=== PATIENT | female | born 1995 | race Caucasian/White ===

== ENCOUNTER → 2025-02-17 | Outpatient (CLI) | payer OTHER, SELFPAY ==
--- NOTE | 2025-02-17 18:00 | US_ITS ---
PROCEDURE: PELVIC W/ TRANSVAGINAL REASON FOR EXAM: INFERTILITY TECHNIQUE: Procedure Code: [id number] Modality: US Procedure: PELVIC W/ TRANSVAGINAL COMPARISON: None FINDINGS: LMP: January 12, 2025 Measurements: Uterus: 7.6 cm x 5.3 cm x 3.4 cm with a volume of 71.3 mL Endometrial Thickness: 11 mm. It is hyperechoic. Right Ovary: 3.7 cm x 2.6 cm x 1.9 cm with a volume of 10 mL. Left Ovary: 4.7 cm x 4 cm x 2.7 cm with a volume of 39 mL. TRANSABDOMINAL: Uterus: Normal size, myometrial echotexture, and contour. Endometrium: Endometrium measures 1.1 cm. There is a hypoechoic nodular density within the endometrium measuring 3 mm x 5 mm x 2 mm. This may represent an endometrial polyp. Right ovary: Normal size and echotexture. Small ovarian follicles. These are seen in the periphery of the ovary suggestive of possible polycystic ovaries. Left ovary: There is a 2.8 cm 3.4 cm 1.8 cm complex cyst. Other: No large pelvic mass identified. Transvaginal sonography was performed to better visualize the endometrium. TRANSVAGINAL: Uterus: Retroverted. Endometrium: Questionable 3 mm x 5 mm x 2 mm endometrial polyp. Right ovary: Small follicles in the periphery of the right ovary. Left ovary: 2.8 cm 3.4 cm 1.8 cm complex cyst. Other adnexal findings: None. Cul-de-sac: Minimal free fluid in the pelvis within normal limits. Tenderness: No tenderness US/Pelvic w/ Transvaginal IMPRESSION: Questionable 3 mm x 5 mm x 2 mm endometrial polyp. 2.8 cm 3.4 cm 1.8 cm complex cyst in the left ovary. Reading Location: [place] [id number]
--- OUTSIDE RECORDS SUMMARY | 2025-02-17 18:01 | XMS RPT_ITS | CCD ---
Author Organization [facility] Care Team Providers Care Vascular Ultrasound Technician Name Role Phone Ortiz Sabillon Unavailable [phone] ML ACEVEDO Unavailable Unavailable ML ACEVEDO Unavailable Unavailable KATI REYES Unavailable Unavailable ORTIZ SABILLON Unavailable Unavailable ORTIZ SABILLON Unavailable Unavailable LUIS RAMOS Unavailable Unavailable Cohen MATERIALS BRANCH CHIEF, Genialissette Iverson Primary Care Prov ider Cohen MATERIALS BRANCH CHIEF, Genialissette Candelariae Primary Care Prov ider Joaquin Dick DO Unavailable [phone] Cohen MATERIALS BRANCH CHIEF, Genialissette Iverson Primary Care Prov ider Richard Barone DO Unavailable [phone] JORDYN LAINEZ Attending Unavailable GENIA COHENE Primary Care Unava ilable GENIA COHEN Referring Unava ilable GENIA COHEN Attending Unava ilable GENIA COHEN Primary Care Unava ilable Cohen MATERIALS BRANCH CHIEF, Genia Zayra Primary Care Prov ider GENIA COHEN Primary Care Unava ilable Cohen MATERIALS BRANCH CHIEF, Genia Zayra Primary Care Prov ider Cohen ROSARIO, Genia Zayra Unavailable NIRAJ KENNEDY Referring Unavailable Unavailable Primary Care Provider UnavailNiraj Cox Unavailable Karen Killian Unavailable GENIA COHEN Attending GENIA Espinosa Primary Care Temi Hernandez Attending Unavailable Temi Mendez Referring Unavailable [facility] Doctor, Out of Primary Care Unavailable Temi Mendez Attending Unavailable Allergies Allergy Classification Reported Allergen(s) Allergy Type Date of Onset Reaction(s) Facility (1 source) ALLERGIES NOT ON FILE; Translations: [ALLERGIES NOT ON FILE] Propensity to adverse reactions (disorder) [facility] Medications Current Medications Medication Drug Class(es) Dates Sig (Normalized) Sig (Original) azelaic acid 0.15 mg/mg topical gel (2 sources) Start: 08-06-2024 azelaic acid (FINACEA) 15 % gel Apply topically 2 (two) times a day . 08/06/2024 Active escitalopram 20 mg oral tablet (9 sources) Serotonin Reuptake Inhibitor Start: 01-19-2021 End: 07-30-2022 take 1 tablet by mouth once daily escitalopram oxalate (LEXAPRO) 20 MG tablet Indications: Anxiety Take 1 (one) tablet (20 mg total) by mouth daily . 90 tablet 3 08/04/2021 07/30/2022 Active Start: 09-29-2020 End: 01-19-2021 take 1 tablet by mouth once daily escitalopram oxalate (LEXAPRO) 10 MG tablet Indications: Anxiety Take 1 (one) tablet (10 mg total) by mouth daily . 30 tablet 1 09/29/2020 01/19/2021 Discontinued (Reorder) 21 day ethinyl estradiol 0.415473 mg/hr / etonogestrel 0.005 mg/hr vaginal system (6 sources) Progestin, Estrogen Start: 09-29-2020 End: 09-29-2021 etonogestreL-ethinyl estradioL (NUVARING) 0.12-0.015 mg/24 hr vaginal ring Indications: Encounter for counseling regarding contraception Insert vaginally and leave in place for 3 consecutive weeks, then remove for 1 week. . 1 each 12 09/29/2020 Active Norethindrone Acetate-Ethinyl Estradiol 1 Mg-5 McG Tablet (1 source) Progestin, Estrogen norethindron e-ethinyl estradiol (FEMHRT 1/5) 1-5 mg-mcg Tab Take by mouth daily. Active hydrOXYzine hydrochloride 10 mg oral tablet (18 sources) Antihistamine Start: 03-15-2023 End: 11-12-2024 hydrOXYzine (ATARAX) 10 MG tablet Indications: Anxiety Take 1 (one) tablet to 2 (two) tablets (10-20 mg total) by mouth 3 (three) times a day as needed for anxiety . 90 tablet 6 11/12/2024 Active Start: 01-19-2021 End: 01-19-2022 take 1 capsule by mouth every four hours as needed for anxiety hydrOXYzine (VISTARIL) 50 MG capsule Take 1 (one) capsule (50 mg total) by mouth every 4 (four) hours as needed for anxiety . 30 capsule 0 01/19/2021 01/19/2022 Active nitrofurantoin, macrocrystals 25 mg / nitrofurantoin, monohydrate 75 mg oral capsule (1 source) Nitrofuran Antibacterial Start: 02-24-2017 End: 03-03-2017 take 1 capsule by mouth twice daily nitrofurantoin, macrocrystal-monohydrate, (MACROBID) 100 MG capsule Indications: Urinary tract infection without hematuria, site unspecified Take 1 (one) capsule (100 mg total) by mouth 2 (two) times a day for 7 days. 14 capsule 0 02/24/2017 03/03/2017 Active ondansetron 4 mg oral tablet (2 sources) Serotonin-3 Receptor Antagonist Start: 01-25-2017 take 4 tablets by mouth every eight hours ondansetron (ZOFRAN, HYDROCHLORIDE,) 4 MG tablet Take 1 (one) tablet (4 mg total) by mouth every 8 (eight) hours as needed for nausea. 6 tablet 0 01/25/2017 Active phenazopyridine hydrochloride 200 mg oral tablet (1 source) Start: 02-24-2017 End: 02-26-2017 take 1 tablet by mouth three times daily phenazopyridine (PYRIDIUM) 200 MG tablet Indications: Urinary tract infection without hematuria, site unspecified Take 1 (one) tablet (200 mg total) by mouth 3 (three) times a day for 2 days. 6 tablet 0 02/24/2017 02/26/2017 Active sertraline 50 mg oral tablet (16 sources) Serotonin Reuptake Inhibitor Start: 10-14-2024 End: 11-07-2025 take 1 tablet by mouth once daily sertraline (ZOLOFT) 50 MG tablet Indications: Anxiety Take 1 (one) tablet (50 mg total) by mouth daily . 90 tablet 3 11/12/2024 11/07/2025 Active Start: 06-13-2023 End: 08-10-2024 take 1 tablet by mouth once daily sertraline (ZOLOFT) 50 MG tablet Indications: Anxiety Take 1 (one) tablet (50 mg total) by mouth daily . 30 tablet 11 08/16/2023 08/10/2024 Active Start: 03-15-2023 End: 05-14-2023 take 1 tablet by mouth once daily sertraline (ZOLOFT) 50 MG tablet Indications: Anxiety Take 1 (one) tablet (50 mg total) by mouth daily . 30 tablet 1 03/15/2023 05/14/2023 Active Start: 02-12-2023 End: 04-13-2023 take 1 tablet by mouth once daily sertraline (ZOLOFT) 25 MG tablet Indications: Anxiety Take 1 (one) tablet (25 mg total) by mouth daily . 30 tablet 1 02/12/2023 03/15/2023 Discontinued (Reorder (Suppress CancelRx Message to Pharmacy)) sulfamethoxazole 800 mg / trimethoprim 160 mg oral tablet (1 source) Dihydrofolate Reductase Inhibitor Antibacterial, Sulfonamide Antimicrobial Start: 01-25-2017 End: 01-30-2017 take 1 tablet by mouth twice daily sulfamethoxazole-trimethoprim (BACTRIM DS,SEPTRA DS) 800-160 mg per tablet Take 1 (one) tablet by mouth 2 (two) times a day for 5 days. 10 tablet 0 01/25/2017 01/30/2017 Active UNKNOWN (1 source) Completed/Discontinued Medications Medication Drug Class(es) Dates Sig (Normalized) Sig (Original) NEGATED: Highlighted row has not occurred! (5 sources) Start: 01-06-2024 End: 01-06-2024 Start: 01-02-2024 End: 01-02-2024 Start: 01-01-2024 End: 01-01-2024 Problems Active Problems Problem Classification Problem Date Documented Date Episodic/Chronic Anxiety disorders (20 sources) Anxiety; Translations: [Anxiety disorder, unspecified] Onset: 09-29-2020 Chronic Contraceptive and procreative management (5 sources) Patient encounter status; Translations: [Encounter for other general counseling and advice on contraception] Onset: 02-09-2025 Episodic E Codes: Fall (2 sources) Fall from snow-skis, initial encounter; Translations: [Fall from snow-skis, initial encounter] Onset: 04-26-2022 Episodic Genitourinary symptoms and ill-defined conditions (1 source) Dysuria; Translations: [Dysuria] Episodic Immunizations and screening for infectious disease (1 source) Immunization due; Translations: [Encounter for immunization] 02-12-2023 Episodic Malaise and fatigue (3 sources) Fatigue; Translations: [Other fatigue] Onset: 11-12-2024 11-12-2024 Episodic Menstrual disorders (20 sources) Irregular periods; Translations: [Irregular menstruation, unspecified] Onset: 09-29-2020 Chronic Nutritional deficiencies (3 sources) Vitamin D deficiency; Translations: [Vitamin D deficiency, unspecified] Onset: 11-12-2024 11-12-2024 Chronic Other nervous system disorders (1 source) Disturbance of attention; Translations: [Attention and concentration deficit] Chronic Other non-traumatic joint disorders (3 sources) Pain in right knee; Translations: [Pain in joint, lower leg] Onset: 04-26-2022 Episodic Other screening for suspected conditions (not mental disorders or infectious disease) (2 sources) Encounter for screening for diabetes mellitus; Translations: [Encounter for screening for diabetes mellitus] Onset: 11-12-2024 Episodic Sprains and strains (1 source) Strain of right patellar tendon; Translations: [Strain of other muscle(s) and tendon(s) at lower leg level, right leg, subsequent encounter] Episodic Past or Other Problems Problem Classification Problem Date Documented Da te Episodic/Chronic Abdominal pain (13 sources) Generalized abdominal pain; Translations: [Generalized abdominal pain] Onset: 01-01-2024 Episodic Mood disorders (6 sources) Mood disorders Onset: 09-29-2020 09-29-2020 Other nervous system disorders (17 sources) Numbness; Translations: [Anesthesia of skin] Onset: 02-21-2018 Resolved: 09-29-2020 09-29-2020 Episodic Urinary tract infections (5 sources) Urinary tract infectious disease; Translations: [Urinary tract infection, site not specified] Onset: 01-25-2017 Episodic Results Test Name Value Interpretation Reference Range Facility Junior Qa Analyst Office Visit Reporton 02-09-2025 Junior Qa Analyst Office Visit Report [facility] 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 Is patient in pain?: No Allergies No Known Allergies Allergy (Unverified 02/09/25 09:34) Medications ???Medication ???Instructions ???Recorded ???Confirmed ???Type sertraline 50 mg tablet (Zoloft) 50 mg PO QDAY 02/09/25 02/09/25 Hi story Is last menstrual period known: Yes Last Menstrual Period: 01/10/25 Post menopausal: No Patient : No : No Do you think of yourself as: straight/heterosexua l Current gender identity: female Control Method: none PFSH Medical History (Updated 02/09/25 @ 09:52 by SANTHOSH Chen) Anxiety Surgical History (Updated 02/09/25 @ 09:40 by Elizabeth Godinez) S/P ACL repair Family History (Updated 02/09/25 @ 09:41 by Elizabeth Godinez) Mother Abnormal uterine bleeding Sister Abnormal uterine bleeding Social History adopted: No household members: spouse housing: house number of children: 0 current occupational status: employed current occupation: [employer] current occupational exposures/hazards: No pets and animals: Yes pets and animals: dog(s) history of recent travel: No sexually active: Yes Smoking Status: Never smoker second hand exposure: No alcohol intake: current alcohol intake frequency: a few times a week Alcohol type: wine substance use type: does not use well-balanced diet: about half the time caffeine: Yes Type: coffee Number of servings: 3 eating out: 1-3 times/week during the past year weight has: increased > 10 lbs what type of physical activity do you participate in: walking frequency: daily cornelio/congregational: None seatbelt use: always do you feel safe at home: Yes additional social history: - Grant History 0 Elective abortions Hx Para Spontaneous abortions Hx # Term Pregnancies Ectopic pregnancies Hx # Pregnancies Multiple births # of living children HPI Encounter for routine gynecological examination Details: LAURA EAGLE is a 29 year old who presents for annual exam. She is here to establish care. She reports she has not been on OCP since in high school. She was previously on Depo during high school. She has been with partner for 10 years with unprotected sex and has never had (did use pull out method). Since August of this year they have been actively trying; tracking cycles. Her test strips are showing she is not ovulating. Last PAP: 09/2022 per patient; negative. History of abnormal PAP: none Last mammogram: none History of abnormal mammogram: none Colon cancer screening: none Other preventative health care screenings: PCP: Genia Cohen NP. Female Reproductive History Hx Age of Menarche: 12 Last Menstrual Period: 01/10/25 Cycle Length: 21-35 Bleeding Duration: 5 Questions: metrorrhagia: No, sexually active: Yes, dyspareunia: No and PCB: No ROS Const Constitutional: Denies chills, fatigue, fever(s), headache(s), weight gain or weight loss Eyes Eyes: Denies change in vision ENT ENT: Denies dizziness Cardio Card: Denies chest pain, chest pain at rest or palpitations Resp Resp: Denies cough or dyspnea GI GI: Denies abdominal pain, constipation, nausea or vomiting : Denies difficulty voiding, dysuria, hematuria, pelvic pain, prolapse symptoms, urinary frequency, urinary incontinence, urinary urgency, vaginal discharge, vaginal dryness, vaginal odor or vaginal pruritus Skin Skin/Breast: Denies alopecia, new lesions, rash, breast mass, breast pain or breast skin changes Neuro Neuro: Denies dizziness Psych Psych: Denies anxiety or depression Endo Endo: Denies cold intolerance, excessive sweating or heat intolerance Exam Const General: cooperative, healthy appearing, comfortable, no acute distress, well groomed and well hydrated Nutritional Appearance: well nourished Orientation: alert, awake and oriented x3 HENMT Head: normal to inspection and normocephalic Ears: hearing grossly normal bilaterally and external ears normal Nose: external nose normal Face and sinus: normal facial exam Eyes General: appearance normal, both eyes and all related structures Neck Neck: normal visual inspection, full ROM and no lymphadenopathy Thyroid: thyroid normal Chest Chest palpation inspection: normal inspection of the chest Breast inspection: normal inspection of the breasts and normal inspection (more content not included)... Normal [facility] B12/Folateon 11-13-2024 Cobalamin (Vitamin B12) [Mass/Vol] 433 pg/mL 200 - 1100 pg/mL [facility] Folate [Mass/Vol] 20.9 ng/mL [facility] Comment on above: Reference Range Low: <3.4 Borderline: 3.4-5.4 Normal: >5.4 BASIC METABOLIC PANEL WITH A NION GAPon 11-13-2024 BUN/CREATININE RATIO SEE NOTE: Normal 6-22 [facility] Comment on above: Result Comment: Not Reported: BUN and Creatinine are within reference range. Performed By: #### 1 4852, 97973, 18979, 09821, 496, 6399, 5616 #### [facility] [address], [address] [place] [address] Center Rep: Merlin Rao MD Calcium [Mass/Vol] 9.6 mg/dL Normal 8.6-10.2 [facility] Comment on above: Performed By: #### 1 4852, 08955, 44095, 22877, 496, 6399, 5616 #### [facility] [address], [address] [place] [address] Center Rep: Merlin Rao MD Chloride [Moles/Vol] 103 mmol/L Normal 98-110 [facility] Comment on above: Performed By: #### 1 4852, 09680, 70120, 48764, 496, 6399, 5616 #### [facility] [address], [address] [place] [address] Center Rep: Merlin Rao MD CO2 [Moles/Vol] 23 mmol/L Normal 20-32 [facility] Comment on above: Performed By: #### 1 4852, 30419, 40329, 91808, 496, 6399, 5616 #### [facility] [place] [address] Center Rep: Merlin Rao MD Creatinine [Mass/Vol] 0.66 mg/dL Normal 0.50-0.97 [facility] Comment on above: Performed By: #### 1 4852, 43296, 35307, 21964, 496, 6399, 5616 #### [facility] [place] [address] Center Rep: Merlin Rao MD ELECTROLYTE BALANCE 12 mmol/L (calc) Normal 7-17 [facility] Comment on above: Performed By: #### 1 4852, 33875, 65473, 15027, 496, 6399, 5616 #### [facility] [place] [address] Center Rep: Merlin Rao MD GFR/1.73 sq M.predicted among non-blacks MDRD (S/P/Bld) [Vol rate/Area] 121 mL/min/{1.73_m2} Normal > OR = 60 [facility] Comment on above: Performed By: #### 1 4852, 24257, 51710, 02351, 496, 6399, 5616 #### [facility] [place] [address] Center Rep: Merlin Rao MD Glucose [Mass/Vol] 91 mg/dL Normal 65-99 [facility] Comment on above: Result Comment: Fasting reference interval Performed By: #### 1 4852, 21948, 01949, 32262, 496, 6399, 5616 #### [facility] [place] [address] Center Rep: Merlin Rao MD Potassium [Moles/Vol] 4.3 mmol/L Normal 3.5-5.3 [facility] Comment on above: Performed By: #### 1 4852, 18376, 93852, 22549, 496, 6399, 5616 #### [facility] [address], [address] Center Rep: Merlin Rao MD Sodium [Moles/Vol] 138 mmol/L Normal 135-146 [facility] Comment on above: Performed By: #### 1 4852, 94566, 38298, 24419, 496, 6399, 5616 #### [facility] [address], [address] [place] [address] Center Rep: Merlin Rao MD Urea nitrogen [Mass/Vol] 14 mg/dL Normal 7-25 [facility] Comment on above: Performed By: #### 1 4852, 95284, 15090, 01097, 496, 6399, 5616 #### [facility] [address], [address] [place] [address] Center Rep: Merlin Rao MD Basic metabolic 2000 panelon 11-13-2024 Anion gap [Moles/Vol] 12 mmol/L [facility] Calcium [Mass/Vol] 9.6 mg/dL 8.6 - 10. 2 mg/dL [facility] Chloride [Moles/Vol] 103 mmol/L 98 - 110 mmol/L [facility] CO2 [Moles/Vol] 23 mmol/L 20 - 32 mmol/L [facility] Creatinine [Mass/Vol] 0.66 mg/dL 0.50 - 0.97 mg/dL [facility] GFR/1.73 sq M.predicted among non-blacks MDRD (S/P/Bld) [Vol rate/Area] 121 mL/min/{1.73_m2} > OR = 60 mL/min/1.73m2 [facility] Glucose [Mass/Vol] 91 mg/dL 65 - 99 mg/dL [facility] Comment on above: Fasting reference interval Potassium [Moles/Vol] 4.3 mmol/L 3.5 - 5.3 mmol/L [facility] Sodium [Moles/Vol] 138 mmol/L 135 - 146 mmol/L [facility] Urea nitrogen [Mass/Vol] 14 mg/dL 7 - 25 mg/dL [facility] Urea nitrogen/Creatinine [Mass ratio] SEE NOTE: [facility] Comment on above: Not Reported: BUN an d Creatinine are within reference range. CBC (INCLUDES DIFF/PLT)on Basophils (Bld) [#/Vol] 0.054 10*3/uL Normal 0-200 [facility] Comment on above: Performed By: #### 1 4852, 70307, 24842, 54817, 496, 6399, 5616 #### [facility] of [address], [address] [place] [address] Center Rep: Merlin Rao MD Basophils/100 WBC (Bld) 0.6 % Normal [facility] Comment on above: Performed By: #### 1 4852, 03185, 39406, 48340, 496, 6399, 5616 #### [facility] [place] [address] Center Rep: Merlin Rao MD Eosinophils (Bld) [#/Vol] 0.162 10*3/uL Normal 15-500 [facility] Comment on above: Performed By: #### 1 4852, 37764, 29294, 49350, 496, 6399, 5616 #### [facility] [place] [address] Center Rep: Merlin Rao MD Eosinophils/100 WBC (Bld) 1.8 % Normal [facility] Comment on above: Performed By: #### 1 4852, 98086, 08618, 31389, 496, 6399, 5616 #### [facility] [place] [address] Center Rep: Merlin Rao MD Erythrocyte distribution width (RBC) [Ratio] 13.1 % Normal 11.0-15.0 [facility] Comment on above: Performed By: #### 1 4852, 73962, 08237, 73863, 496, 6399, 5616 #### [facility] of [place] [address] Center Rep: Merlin Rao MD Hematocrit (Bld) [Volume fraction] 43.7 % Normal 35.0-45.0 [facility] Comment on above: Performed By: #### 1 4852, 23424, 40730, 91955, 496, 6399, 5616 #### [facility] [place] [address] Center Rep: Merlin Rao MD Hemoglobin (Bld) [Mass/Vol] 14.3 g/dL Normal 11.7-15.5 [facility] Comment on above: Performed By: #### 1 4852, 20535, 99100, 92126, 496, 6399, 5616 #### [facility] [place] [address] Center Rep: Merlin Rao MD Lymphocytes (Bld) [#/Vol] 2.907 10*3/uL Normal 850-3900 [facility] Comment on above: Performed By: #### 1 4852, 28359, 96689, 20975, 496, 6399, 5616 #### [facility] [place] [address] Center Rep: Merlin Rao MD Lymphocytes/100 WBC (Bld) 32.3 % Normal [facility] Comment on above: Performed By: #### 1 4852, 86833, 93025, 85111, 496, 6399, 5616 #### [facility] [place] [address] Center Rep: Merlin Roa MD MCH (RBC) [Entitic mass] 29.4 pg Normal 27.0-33.0 [facility] Comment on above: Performed By: #### 1 4852, 04684, 35240, 42649, 496, 6399, 5616 #### [facility] of [place] [address] Center Rep: Merlin Rao MD MCHC (RBC) [Mass/Vol] 32.7 g/dL Normal 32.0-36.0 [facility] Comment on above: Result Comment: For adults, a slight decrease in the calculated MCHC value (in the range of 30 to 32 g/dL) is most likely not clinically significant; however, it should be interpreted with caution in correlation with other red cell parameters and the patient's clinical condition. Performed By: #### 1 4852, 02115, 70107, 12197, 496, 6399, 5616 #### [facility] of [address], [address] [place] [address] Center Rep: Merlin Rao MD MCV (RBC) [Entitic vol] 89.9 fL Normal 80.0-100.0 [facility] Comment on above: Performed By: #### 1 4852, 31367, 92600, 09644, 496, 6399, 5616 #### [facility] of [place] [address] Center Rep: Merlin Rao MD Monocytes (Bld) [#/Vol] 0.774 10*3/uL Normal 200-950 [facility] Comment on above: Performed By: #### 1 4852, 27440, 31817, 56683, 496, 6399, 5616 #### [facility] of [place] [address] Center Rep: Merlin Rao MD Monocytes/100 WBC (Bld) 8.6 % Normal [facility] Comment on above: Performed By: #### 1 4852, 37661, 57353, 60525, 496, 6399, 5616 #### [facility] of [place] [address] Center Rep: Merlin Rao MD Neutrophils (Bld) [#/Vol] 5.103 10*3/uL Normal 5408-5254 [facility] Comment on above: Performed By: #### 1 4852, 84057, 89757, 78206, 496, 6399, 5616 #### [facility] of [address], [address] [place] [address] Center Rep: Merlin Rao MD Neutrophils/100 WBC (Bld) 56.7 % Normal [facility] Comment on above: Performed By: #### 1 4852, 75305, 75233, 37501, 496, 6399, 5616 #### [facility] [place] [address] Center Rep: Merlin Rao MD Platelet mean volume (Bld) [Entitic vol] 10.4 fL Normal 7.5-12.5 [facility] Comment on above: Performed By: #### 1 4852, 50791, 82601, 31479, 496, 6399, 5616 #### [facility] [place] [address] Center Rep: Merlin Rao MD Platelets (Bld) [#/Vol] 293 10*3/uL Normal 140-400 [facility] Comment on above: Performed By: #### 1 4852, 57078, 39062, 49417, 496, 6399, 5616 #### [facility] [place] [address] Center Rep: Merlin Rao MD RBC (Bld) [#/Vol] 4.86 10*6/uL Normal 3.80-5.10 [facility] Comment on above: Performed By: #### 1 4852, 76821, 94037, 88446, 496, 6399, 5616 #### [facility] [place] [address] Center Rep: Merlin Rao MD WBC (Bld) [#/Vol] 9.0 10*3/uL Normal 3.8-10.8 [facility] Comment on above: Performed By: #### 1 4852, 77336, 10625, 34781, 496, 6399, 5616 #### [facility] of [place] [address] Center Rep: Merlin Rao MD CBC and Differentialon 11-13 Basophils (Bld) [#/Vol] 54 10*3/uL [facility] Basophils/100 WBC (Bld) 0.6 % [facility] Eosinophils (Bld) [#/Vol] 162 10*3/uL [facility] Eosinophils/100 WBC (Bld) 1.8 % [facility] Erythrocyte distribution width (RBC) [Ratio] 13.1 % 11.0 - 15.0 % [facility] Hematocrit (Bld) [Volume fraction] 43.7 % 35.0 - 45.0 % [facility] Hemoglobin (Bld) [Mass/Vol] 14.3 g/dL 11.7 - 15.5 g/dL [facility] Lymphocytes (Bld) [#/Vol] 2907 10*3/uL [facility] Lymphocytes/100 WBC (Bld) 32.3 % [facility] MCH (RBC) [Entitic mass] 29.4 pg 27.0 - 33.[address] [facility] MCHC (RBC) [Mass/Vol] 32.7 g/dL 32.0 - 36.0 g/dL [facility] Comment on above: For adults, a slight decrease in the calculated MCHC value (in the range of 30 to 32 g/dL) is most likely not clinically significant; however, it should be interpreted with caution in correlation with other red cell parameters and the patient's clinical condition. MCV (RBC) [Entitic vol] 89.9 fL 80.0 - 100.[address] [facility] Monocytes (Bld) [#/Vol] 774 10*3/uL [facility] Monocytes/100 WBC (Bld) 8.6 % [facility] Neutrophils (Bld) [#/Vol] 5103 10*3/uL [facility] Neutrophils/100 WBC (Bld) 56.7 % [facility] Platelet mean volume (Bld) [Entitic vol] 10.4 fL 7.5 - 12.[address] [facility] Platelets (Bld) [#/Vol] 293 10*3/uL [facility] RBC (Bld) [#/Vol] 4.86 10*6/uL [facility] WBC (Bld) [#/Vol] 9 10*3/uL [facility] HEMOGLOBIN A1con 11-13-2024 HbA1c (Bld) [Mass fraction] 5.5 % Normal <5.7 [facility] Comment on above: Result Comment: For the purpose of screening for the presence of diabetes: <5.7% Consistent with the absence of diabetes 5.7-6.4% Consistent with increased risk for diabetes (prediabetes) > or =6.5% Consistent with diabetes This assay result is consistent with a decreased risk of diabetes. Currently, no consensus exists regarding use of hemoglobin A1c for diagnosis of diabetes in children. According to [place] Diabetes Association (ADA) guidelines, hemoglobin A1c <7.0% represents optimal control in non- diabetic patients. Different metrics may apply to specific patient populations. Standards of Medical Care in Diabetes(ADA). Performed By: #### 1 4852, 51508, 91070, 08137, 496, 6399, 5616 #### [facility] [address], [address] [place] [address] Center Rep: Merlin Rao MD HbA1c (Bld) [Mass fraction]o n 11-13-2024 FASTING:YES AN UPDATE OR CORRECTION HAS BEEN MADE TO NAME FASTING: YES [facility] Hemoglobin A1con 11-13-2024 HbA1c (Bld) [Mass fraction] 5.5 % [facility] - 5.7 % [facility] Comment on above: For the purpose of s creening for the presence of diabetes: <5.7% Consistent with the absence of diabetes 5.7-6.4% Consistent with increased risk for diabetes (prediabetes) > or =6.5% Consistent with diabetes This assay result is consistent with a decreased risk of diabetes. Currently, no consensus exists regarding use of hemoglobin A1c for diagnosis of diabetes in children. According to [place] Diabetes Association (ADA) guidelines, hemoglobin A1c <7.0% represents optimal control in non- diabetic patients. Different metrics may apply to specific patient populations. Standards of Medical Care in Diabetes(ADA). IRON, TIBC AND FERRITIN PANE Jorden 11-13-2024 % SATURATION 28 % (calc) Normal 16-45 [facility] Comment on above: Order Comment: FASTI NG:YES AN UPDATE OR CORRECTION HAS BEEN MADE TO NAME FASTING: YES Performed By: #### 1 4852, 15011, 69919, 67337, 496, 6399, 5616 #### [facility] [address], [address] [place] [address] Center Rep: Merlin Rao MD Ferritin [Mass/Vol] 81 ng/mL Normal 16-154 [facility] Comment on above: Order Comment: FASTI NG:YES AN UPDATE OR CORRECTION HAS BEEN MADE TO NAME FASTING: YES Performed By: #### 1 4852, 97561, 02882, 39829, 496, 6399, 5616 #### [facility] [address], [address] [place] [address] Center Rep: Merlin Rao MD IRON BINDING CAPACITY 326 mcg/dL (calc) Normal 250-450 [facility] Comment on above: Order Comment: FASTI NG:YES AN UPDATE OR CORRECTION HAS BEEN MADE TO NAME FASTING: YES Performed By: #### 1 4852, 49009, 67488, 43868, 496, 6399, 5616 #### [facility] [address], [address] [place] [address] Center Rep: Merlin Rao MD IRON, TOTAL 90 mcg/dL Normal 40-190 [facility] Comment on above: Order Comment: FASTI NG:YES AN UPDATE OR CORRECTION HAS BEEN MADE TO NAME FASTING: YES Performed By: #### 1 4852, 27715, 09900, 17279, 496, 6399, 5616 #### [facility] [address], [address] [place] [address] Center Rep: Merlin Rao MD Iron Study with Ferritinon 0 11-13-2024 Ferritin [Mass/Vol] 81 ng/mL 16 - 154 ng/mL [facility] Iron [Mass/Vol] 90 ug/dL [facility] h Iron binding capacity [Mass/Vol] 326 [facility] Iron saturation [Mass fraction] 28 [facility] LIPID PANEL WITH REFLEX TO D IRECT LDLon 11-13-2024 Cholesterol [Mass/Vol] 161 mg/dL Normal <200 [facility] Comment on above: Performed By: #### 1 4852, 14446, 31684, 13188, 496, 6399, 5616 #### [facility] [address], [address] [place] [address] Center Rep: Merlin Rao MD Cholesterol in HDL [Mass/Vol] 50 mg/dL Normal > OR = 50 [facility] Comment on above: Performed By: #### 1 4852, 15930, 36523, 12192, 496, 6399, 5616 #### [facility] [place] [address] Center Rep: Merlin Rao MD Cholesterol in LDL [Mass/Vol] 87 mg/dL Normal [facility] Comment on above: Result Comment: Refe rence range: <100 Desirable range <100 mg/dL for primary prevention; <70 mg/dL for patients with CHD or diabetic patients with > or = 2 CHD risk factors. LDL-C is now calculated using the Kami calculation, which is a validated novel method providing better accuracy than the Friedewald equation in the estimation of LDL-C. Earl MONIQUE et al. RYAN. 2013;310(19): 1293-0255 (http://education.[employer]/faq/EXZ726) Performed By: #### 1 4852, 38646, 21558, 08761, 496, 6399, 5616 #### [facility] [place] [address] Center Rep: Merlin Rao MD Cholesterol.total/C holesterol in HDL [Mass ratio] 3.2 {ratio} Normal <5.0 [facility] Comment on above: Performed By: #### 1 4852, 31208, 23553, 70437, 496, 6399, 5616 #### [facility] [place] [address] Center Rep: Merlin Rao MD NON HDL CHOLESTEROL 111 mg/dL (calc) Normal <130 [facility] Comment on above: Result Comment: For patients with diabetes plus 1 major ASCVD risk factor, treating to a non-HDL-C goal of <100 mg/dL (LDL-C of <70 mg/dL) is considered a therapeutic option. Performed By: #### 1 4852, 01401, 72724, 48456, 496, 6399, 5616 #### [facility] [place] [address] Center Rep: Merlin Rao MD Triglyceride [Mass/Vol] 137 mg/dL Normal <150 [facility] Comment on above: Performed By: #### 1 4852, 67649, 90204, 17141, 496, 0128, 0179 #### [facility] [address], [address] [place] [address] Center Rep: Merlin Rao MD Lipid 1996 panelon 5 Cholesterol [Mass/Vol] 161 mg/dL [facility] - 200 mg/dL [facility] Cholesterol in HDL [Mass/Vol] 50 mg/dL > OR = 50 [facility] Cholesterol in LDL [Mass/Vol] 87 mg/dL mg/dL (calc) [facility] Comment on above: Reference range: <10 0 Desirable range <100 mg/dL for primary prevention; <70 mg/dL for patients with CHD or diabetic patients with > or = 2 CHD risk factors. LDL-C is now calculated using the Kami calculation, which is a validated novel method providing better accuracy than the Friedewald equation in the estimation of LDL-C. Earl MONIQUE et al. RYAN. 2013;310(19): 7159-2373 (http://education.[employer]/faq/XID382) Cholesterol non HDL [Mass/Vol] 111 mg/dL [facility] Comment on above: For patients with di abetes plus 1 major ASCVD risk factor, treating to a non-HDL-C goal of <100 mg/dL (LDL-C of <70 mg/dL) is considered a therapeutic option. Cholesterol.total/C holesterol in HDL [Mass ratio] 3.2 {ratio} [facility] Triglyceride [Mass/Vol] 137 mg/dL [facility] - 150 mg/dL [facility] No Panel Informationon 11-13 FASTING:YES AN UPDATE OR CORRECTION HAS BEEN MADE TO NAME FASTING: YES [facility] FASTING:YES AN UPDATE OR CORRECTION HAS BEEN MADE TO NAME FASTING: YES [facility] TSH DL <= 0.005 mIU/L Qnon 0 11-13-2024 TSH Qn 1.08 m[IU]/L mIU/L [facility] Comment on above: Reference Range > or = 20 Years 0.40-4.50 Ranges First trimester 0.26-2.66 Second trimester 0.55-2.73 Third trimester 0.43-2.91 TSH W/REFLEX TO FT4on 2024 TSH W/REFLEX TO FT4 1.08 mIU/L Normal [facility] Comment on above: Result Comment: Refe rence Range > or = 20 Years 0.40-4.50 Ranges First trimester 0.26-2.66 Second trimester 0.55-2.73 Third trimester 0.43-2.91 Performed By: #### 1 4852, 60135, 41829, 79867, 496, 6399, 5616 #### [facility] [address], [address] [place] [address] Center Rep: Merlin Rao MD VITAMIN B12/FOLATE, SERUM [facility] 11-13-2024 Cobalamin (Vitamin B12) [Mass/Vol] 433 pg/mL Normal 200-1100 [facility] Comment on above: Performed By: #### 1 4852, 86587, 27230, 45856, 496, 6399, 5616 #### [facility] [address], [address] [place] [address] Center Rep: Merlin Rao MD Folate [Mass/Vol] 20.9 ng/mL Normal [facility] Comment on above: Result Comment: Refe rence Range Low: <3.4 Borderline: 3.4-5.4 Normal: >5.4 Performed By: #### 1 4852, 04942, 69833, 48771, 496, 6399, 5616 #### [facility] [address], [address] [place] [address] Center Rep: Merlin Rao MD VITAMIN D,25-OH,TOTAL,IAon 0 11-13-2024 VITAMIN D,25-OH,TOTAL,IA 34 ng/mL Normal 30-100 [facility] Comment on above: Result Comment: Sandra min D Status 25-OH Vitamin D: Deficiency: <20 ng/mL Insufficiency: 20 - 29 ng/mL Optimal: > or = 30 ng/mL For 25-OH Vitamin D testing on patients on D2-supplementation and patients for whom quantitation of D2 and D3 fractions is required, the QuestAssureD(TM) 25-OH VIT D, (D2,D3), LC/MS/MS is recommended: order code 42118 (patients >2yrs). See Note 1 Note 1 For additional information, please refer to http://[employer]ze.HouseL[employer]/faq/GSM484 (This link is being provided for informational/ educational purposes only.) Performed By: #### 1 4852, 18749, 72965, 28842, 496, 6399, 5616 #### [facility] [address] [facility], [address] [place] [address] Center Rep: Merlin Rao MD Vitamin D, Total, 25-OHon 25-hydroxyvitamin D [Mass/Vol] 34 ng/mL 30 - 100 ng/mL [facility] Comment on above: Vitamin D Status 25- [place] Vitamin D: Deficiency: <20 ng/mL Insufficiency: 20 - 29 ng/mL Optimal: > or = 30 ng/mL For 25-OH Vitamin D testing on patients on D2-supplementation and patients for whom quantitation of D2 and D3 fractions is required, the QuestAssureD() 25-OH VIT D, (D2,D3), LC/MS/MS is recommended: order code 18207 (patients >2yrs). See Note 1 Note 1 For additional information, please refer to http://In[employer]ze.HouseL[employer]/faq/AJE412 (This link is being provided for informational/ educational purposes only.) Urgent Care Xrayon Nonobstructive bowel gas pattern. Signed by: Flores Perez 01/01/2024 5:45 PM Dictation workstation: [id number] [facility] Interpreted By: Flores Perez, STUDY: XR URGENT CARE XRAY; ; 01/01/2024 5:11 pm INDICATION: Signs/Symptoms:abdom en pain. COMPARISON: None. ACCESSION NUMBER(S): [id number] ORDERING CLINICIAN: NIRAJ KENNEDY FINDINGS: Nonobstructive bowel gas pattern. No radiographically evident renal calculi. [facility] Flores Perez MD - 01/01/2024 Interpreted By: Flores Perez, STUDY: XR URGENT CARE XRAY; ; 01/01/2024 5:11 pm INDICATION: Signs/Symptoms:abdom en pain. COMPARISON: None. ACCESSION NUMBER(S): [id number] ORDERING CLINICIAN: NIRAJ KENNEDY FINDINGS: Nonobstructive bowel gas pattern. No radiographically evident renal calculi. IMPRESSION: Nonobstructive bowel gas pattern. Signed by: Flores Perez 01/01/2024 5:45 PM Dictation workstation: [id number] Work Phone: Radiology Study observation (narrative) [facility] [place] [facility] Work Phone: Urgent Care XrayOrdered By: Flores Perez on 01-01-2024 [facility] [place] [facility] Work Phone: XR URGENT CARE XRAYon 2023 XR URGENT CARE XRAY Interpreted By: Flores Perez, STUDY: XR URGENT CARE XRAY; ; 01/01/2024 5:11 pm INDICATION: Signs/Symptoms:abdom en pain. COMPARISON: None. ACCESSION NUMBER(S): [id number] ORDERING CLINICIAN: NIRAJ KENNEDY FINDINGS: Nonobstructive bowel gas pattern. No radiographically evident renal calculi. IMPRESSION: Nonobstructive bowel gas pattern. Signed by: Flores Perez 01/01/2024 5:45 PM Dictation workstation: [id number] [facility] XR HIP RIGHT 2-3 VIEWS (ROUT INE)on 04-27-2022 XR HIP RIGHT 2-3 VIEWS (ROUTINE) EXAMINATION: TWO XRAY VIEWS OF THE RIGHT HIP 04/26/2022 7:38 pm COMPARISON: None. HISTORY: ORDERING SYSTEM PROVIDED HISTORY: mild pain, sking accident; TECHNOLOGIST PROVIDED HISTORY: Injury/Trauma Acuity: Acute Reason for Exam: Leg Pain Cancer History: n Surgery, Radiation History: n Type of Encounter: Initial Mechanism of Injury: Leg Pain FINDINGS: There is no acute fracture or dislocation. Mineralization is preserved. The soft tissues are unremarkable. IMPRESSION: Findings as above. Workstation ID: [id number] Dictated by: VALERIE MURPHY on SunApr 26, 2022 10:46:27 PM EST Transcribed by: VALERIE MURPHY on SunApr 26, 2022 10:46:27 PM EST Finalized by: VALERIE MURPHY on SunApr 26, 2022 10:46:27 PM EST [facility] Comment on above: Order Comment: Injur y/Trauma or Illness?:Injury/Trauma How long have you had these symptoms (acute/chronic)?:Acute Reason for exam?:Leg Pain History of cancer?:n Surgeries, chemotherapy, or radiation?:n Type of Exam?:Initial Mechanism of injury?:Leg Pain XR KNEE RIGHT 2 VIEWS (STAND JEWEL)on 04-27-2022 XR KNEE RIGHT 2 VIEWS (STANDARD) EXAMINATION: TWO XRAY VIEWS OF THE RIGHT KNEE 04/26/2022 7:27 pm COMPARISON: None. HISTORY: ORDERING SYSTEM PROVIDED HISTORY: pain, skiing accident; TECHNOLOGIST PROVIDED HISTORY: Injury/Trauma Acuity: Acute Reason for Exam: Leg Pain Cancer History: n Surgery, Radiation History: n Type of Encounter: Initial Mechanism of Injury: Leg Pain FINDINGS: Suprapatellar effusion is present. No definite acute displaced fracture. Mineralization is appropriate. IMPRESSION: Findings as above. Workstation ID: [id number] Dictated by: VALERIE MURPHY on SunApr 26, 2022 10:45:31 PM EST Transcribed by: VALERIE MURPHY on SunApr 26, 2022 10:45:31 PM EST Finalized by: VALERIE MURPHY on SunApr 26, 2022 10:45:31 PM EST [facility] Comment on above: Order Comment: Injur y/Trauma or Illness?:Injury/Trauma How long have you had these symptoms (acute/chronic)?:Acute Reason for exam?:Leg Pain History of cancer?:n Surgeries, chemotherapy, or radiation?:n Type of Exam?:Initial Mechanism of injury?:Leg Pain MR KNEE RIGHT WITHOUT CONTRA STon 08-15-2021 MR KNEE RIGHT WITHOUT CONTRAST EXAMINATION: MRI OF THE RIGHT KNEE WITHOUT CONTRAST 08/15/2021 TECHNIQUE: Multiplanar multisequence MRI of the right knee was performed without the administration of intravenous contrast. COMPARISON: None. HISTORY: ORDERING SYSTEM PROVIDED HISTORY: patient with right knee pain - injury 3 months ago with something that snapped and consistently worsening pain since; TECHNOLOGIST PROVIDED HISTORY: Injury/Trauma Acuity: Chronic Reason for Exam: Had a fall 3 months ago while skiing, knee aches/throbs after walking, hard to walk once sore, hip/ankle are also starting to hurt. Type of Encounter: Initial Mechanism of Injury: ORDERING SYSTEM PROVIDED DIAGNOSIS CODES: M25.561 Acute pain of right knee FINDINGS: MENISCI: Intact medial and lateral menisci. CRUCIATE LIGAMENTS: Intact anterior cruciate and posterior cruciate ligaments. EXTENSOR MECHANISM: Intact quadriceps and patellar tendons. Intact patellar retinacula. LATERAL COLLATERAL LIGAMENT COMPLEX: Intact IT band, lateral collateral ligament proper, biceps femoris tendon and popliteus tendon. MEDIAL COLLATERAL LIGAMENT COMPLEX: The superficial and deep components of the medial collateral ligament are intact. KNEE JOINT: Articular cartilage is maintained. No chondral lesion. No joint effusion. No intra-articular body or popliteal cyst. There is focal edema in the infrapatellar fat pad at the inferior lateral margin of the patella. No evidence of edema along the plica in the infrapatellar fat pad. BONE MARROW: No evidence of fracture. Normal marrow signal. IMPRESSION: 1. No meniscus or ligament tear 2. Findings of patellar tendon-lateral femoral condyle friction syndrome. Workstation ID: [id number] Dictated by: JOSE ALFREDO DANIEL on SunAug 16, 2021 8:18:42 AM EDT Transcribed by: JOSE ALFREDO DANIEL on SunAug 16, 2021 8:18:42 AM EDT Finalized by: JOSE ALFREDO DANIEL on SunAug 16, 2021 8:18:42 AM EDT [facility] Comment on above: Order Comment: Injur y/Trauma or Illness?:Injury/Trauma How long have you had these symptoms (acute/chronic)?:Chronic Reason for exam?:Had a fall 3 months ago while skiing, knee aches/throbs after walking, hard to walk once sore, hip/ankle are also starting to hurt. Type of Exam?:Initial Mechanism of injury?: HCG ( test) Ql (U)O rdered By: Genia Cohen on 09-29-2020 Internal Control Pass [facility] Interpretation and review of laboratory results Normal [facility] POC , UrineOrdered By: Genia Cohen on 09-29-2020 HCG ( test) Ql (U) Negative Negative [facility] Urinalysis macro (dipstick) panel (U)Ordered By: Genia Cohen on 09-29-2020 Bilirubin Ql (U) Negative Negative [facility] Glucose Ql (U) Negative Normal, Negative mg/dL [facility] Hemoglobin Ql (U) Negative Negative [facility] Interpretation and review of laboratory results Abnormal [facility] Ketones Ql (U) Negative Negative mg/dL [facility] Leukocyte esterase Test strip Ql (U) Negative Negative [facility] Nitrite Ql (U) Negative Negative [facility] pH (U) 7.5 [pH] Abnormal [facility] Protein Ql (U) Negative Negative mg/dL [facility] Specific gravity (U) [Rel density] 1.025 [facility] Urobilinogen Qn (U) 0.2 mg/dL <2.0, 0. 2, Normal, Negative, 1.0, 2.0, <1.0 [facility] HM PAP SMEAROrdered By: [facility] on 05-30-2019 Cytology report Cyto stain.thin prep Doc (Cvx/Vag) Negative [facility] HPV 16+18+31+33+35+39+4 5+51+52+56+58+59+68 DNA Probe+sig amp Ql (Cvx) [facility] Interpretation and review of laboratory results Normal [facility] CYTOLOGYon 07-10-2017 CYTOLOGY RUN DATE: 07/16/17 [facility] LABORATORY LIVE SYSTEM PAGE 1 RUN TIME: 933 Specimen Inquiry RUN USER: INTERFACE PATIENT: LAURA WILEY LOC: [facility] U #: [id number] AGE/SX: 21/F ROOM: RE07/10/17REG DR: ML ACEVEDO DO : 94 BED: DIS: STATUS: REG CLI TLOC: SPEC #: [id number] RECD: 07/11/17 STATUS: JIMMIE REMaría #: [id number] GRACIELA: 07/10/17- SUBM DR: ML ACEVEDO DO ENTERED: 07/11/17 SP TYPE: CYTOLOGY OTHR DR: ORTIZ SABILLON MD ORDERED: [id number], N/C, 14289 SPECIMEN ADEQUACY SATISFACTORY FOR EVALUATION. ENDOCERVICAL/TRANSFO RMATION ZONE COMPONENT PRESENT. CYTOLOGY INFORMATION LAST MENSTRUAL PERIOD: 06/12/17 : POST : HORMONE THERAPY: YES CLINICAL HISTORY: CIN1, MILD CERVICAL DYSPLASIA INTERPRETATION/RESUL T ATYPICAL SQUAMOUS CELLS OF UNDETERMINED SIGNIFICANCE. GENERAL CATEGORIZATION CERVICAL CYTOLOGY: EPITHELIAL CELL ABNORMALITY: SEE INTERPRETATION. PLEASE NOTE: PAP SMEAR TESTING IS SUBJECT TO BOTH FALSE NEGATIVE AND FALSE POSITIVE RESULTS EVIDENCED BY PUBLISHED DATA. YOUR PATIENT'S TEST RESULTS SHOULD BE INTERPRETED IN THIS CONTEXT, TOGETHER WITH THE HISTORY AND CLINICAL FINDINGS. HPV HIGH RISK LABORATORY Date Time Test Result Flag Normal Range 07/10/17 UNK HPV HR DX NEGATIVE The Aptima HPV Assay is a qualitative amplification test for E6/E7 viral mRNA from 14 high-risk types of HPV. The high-risk HPV types detected by this assay include: 16, 18, 31, 33, 35, 39, 45, 51, 52, 56, 58, 59, 66, and 68. Positive results indicate the presence of HPV E6/E7 mRNA of any one or more of the high-risk types. Negative results are not intended to prevent women from proceeding to colposcopy, if indicated. CONTINUED ON NEXT PAGE RUN DATE: 07/16/17 [facility] LABORATORY LIVE SYSTEM PAGE 2 RUN TIME: 933 Specimen Inquiry RUN USER: INTERFACE SPEC #: [id number] PATIENT: LAURA WILEY #[id number] (Continued)--------- --- RECOMMENDATION HPV DNA TESTING IS THE PREFERRED FOLLOW-UP FOR WOMEN AGE 25 OR GREATER WITH ATYPICAL SQUAMOUS CELLS OF UNDETERMINED SIGNIFICANCE, ACCORDING TO THE UPDATED CONSENSUS GUIDELINES ON THE MANAGEMENT OF WOMEN WITH ABNORMAL CERVICAL CANCER SCREENING TESTS AND CANCER PRECURSORS (PUBLISHED BY THE ASCCP 2013). SCREENED BY: ALIZA Walker([facility]) Signed Electronically Signed MIKE KAUR MD 07/16/17 0933 END OF REPORT Normal [facility] SURGICAL PATHOLOGYon 018 SURGICAL PATHOLOGY RUN DATE: 07/16/17 [facility] LABORATORY LIVE SYSTEM PAGE 1 RUN TIME: 1312 Specimen Inquiry RUN USER: INTERFACE PATIENT: LAURA WILEY [facility]: [facility] U #: [id number] AGE/SX: 21/F ROOM: RE07/10/17REG DR: ML ACEVEDO DO : 94 BED: DIS: STATUS: REG CLI TLOC: SPEC #: [id number] RECD: 07/11/17-799 STATUS: JIMMIE PACKER #: [id number] GRACIELA: 07/10/17- [facility] DR: ML ACEVEDO DO ENTERED: 07/11/17-0801 SP TYPE: SURGICAL OTHR DR: KEO MARIE,ORTIZ Javier ORDERED: [id number], 71180, N/C GROSS DESCRIPTION Labeled 12 o'clock, is a 0.4 x 0.3 x 0.1 cm aggregate of fragments of narayanan tissue. All in 1a. MICROSCOPIC DIAGNOSIS Uterine cervix, 12 o'clock, biopsies: - MILD SQUAMOUS ATYPIA. SEE COMMENT. COMMENT: The findings are not diagnostic of intraepithelial lesion. The concurrent cytology ([id number]) correlates in that neither specimen contains diagnostic dysplasia. P16 immunostain is negative and HPV DNA test on cytology is also negative. Low risk HPV types can not be ruled out. Deeper levels of sections were examined. Adequacy: adequate Colposcopic impression: HPV OPERATION COLPOSCOPY WITH BIOPSY. POST OPERATIVE DIAGNOSIS Same. PREOPERATIVE DIAGNOSIS PRIYA 1, mild cervical dysplasia. -- Signed Electronically Signed MIKE KAUR MD 07/16/17 1312 END OF REPORT Normal [facility] POC Urinalysis Dipstick,Auto UCon 02-24-2017 Bilirubin Ql (U) Small Abnormal Negative [facility] Work Phone: Clarity, UA Clear Invalid Interpretation Code Clear [facility] Work Phone: Interpretation and review of laboratory results Abnormal Invalid Interpretation Code [facility] Work Phone: POC Color, Urine Yellow Invalid Interpretation Code Yellow, Light Yellow, Dark Yellow [facility] Work Phone: Urine, glucose presence Negative Invalid Interpretation Code Normal, Negative mg/dL [facility] Work Phone: Urine, hemoglobin presence Small Abnormal Negative [facility] Work Phone: Urine, ketones presence Negative Invalid Interpretation Code Negative mg/dL [facility] Work Phone: Urine, leukocyte esterase presence Trace Abnormal Negative [facility] Work Phone: Urine, nitrite presence Negative Invalid Interpretation Code Negative [email or web address] Work Phone: Urine, pH 5.5 [pH] Invalid Interpretation Code 5.0 - 7.0 [facility] Work Phone: Urine, protein presence 100 Abnormal Negative mg/dL [facility] Work Phone: Urine, specific gravity 1.030 1 Abnormal 1.005 - 1.025 [facility] Work Phone: Urine, urobilinogen 0.2 mg/dL Invalid Interpretation Code <2.0, 0.2, Normal, Negative, 1.0, 2.0, <1.0 [facility] Work Phone: CHLAMYDIA GONORRHOEAE rRNAon 02-12-2017 CHLAMYDIA RNA Negative Normal NEGATIVE [facility] Comment on above: Result Comment: This test was performed using the FDA approved Aptima Qkiwh4Yplaz (Gen-Probe(R)) for unisex swabs, vaginal swabs, andmale urine specimens. The use of female urine specimens fortesting was validated at [facility]. Performed By: #### C TGCRNA ####[facility] [id number] [place] [address] GONORRHOEAE RNA Negative Normal NEGATIVE [facility] Comment on above: Result Comment: This test was performed using the FDA approved Aptima [id number] (Gen-Probe(R)) for unisex swabs, vaginal swabs, andmale urine specimens. The use of female urine specimens fortesting was validated at [facility]. Performed By: #### C TGCRNA ####[facility] [id number] [place] [address] CYTOLOGYon 02-09-2017 CYTOLOGY RUN DATE: 02/14/17 [facility] LABORATORY LIVE SYSTEM PAGE 1 RUN TIME: 1763 Specimen Inquiry RUN USER: INTERFACE PATIENT: LAURA WILEY LOC: [facility] U #: [id number] AGE/SX: 21/F ROOM: RE02/09/17REG DR: ML ACEVEDO DO : 89 BED: DIS: STATUS: REG CLI TLOC: SPEC #: [id number] RECD: 02/12/17 STATUS: JIMMIE REQ #: [id number] GRACIELA: 02/09/17- SUBM DR: ML ACEVEDO DO ENTERED: 02/12/17 SP TYPE: CYTOLOGY OTHR DR: KEO MARIE,ORTIZ Javier ORDERED: [id number], N/C, [id number] SPECIMEN ADEQUACY SATISFACTORY FOR EVALUATION. ENDOCERVICAL/TRANSFO RMATION ZONE COMPONENT PRESENT. CYTOLOGY INFORMATION LAST MENSTRUAL PERIOD: 01/09/17 : INTERPRETATION/RESUL T LOW-GRADE SQUAMOUS INTRAEPITHELIAL LESION. GENERAL CATEGORIZATION CERVICAL CYTOLOGY: EPITHELIAL CELL ABNORMALITY: SEE INTERPRETATION/RESUL T. PLEASE NOTE: PAP SMEAR TESTING IS SUBJECT TO BOTH FALSE NEGATIVE AND FALSE POSITIVE RESULTS EVIDENCED BY PUBLISHED DATA. YOUR PATIENT'S TEST RESULTS SHOULD BE INTERPRETED IN THIS CONTEXT, TOGETHER WITH THE HISTORY AND CLINICAL FINDINGS. SCREENED BY: ALIZA Walker(ASCP) Signed Electronically Signed KESHAV CARDONA MD 02/14/17 1549 END OF REPORT Normal [facility] SURGICAL PATHOLOGYon 017 SURGICAL PATHOLOGY RUN DATE: 02/14/17 [employer] LIVE SYSTEM PAGE 1 RUN TIME: 1402 Specimen Inquiry RUN USER: INTERFACE PATIENT: LAURA WILEY LOC: [facility] #: [id number] AGE/SX: 21/F ROOM: RE02/09/17REG DR: ML ACEVEDO DO : 94 BED: DIS: STATUS: REG CLI TLOC: SPEC #: [id number] RECD: 02/12/17 STATUS: [facility] RE #: [id number] GRACIELA: 02/09/17- [facility] DR: ML ACEVEDO DO ENTERED: 02/12/17 SP TYPE: SURGICAL OTHR DR: KEO MARIE,ORTIZ Javier ORDERED: [id number], N/C GROSS DESCRIPTION Labeled 12 o'clock and received in formalin is a 0.7 cm x 0.2 cm x 0.1 cm aggregate of fragments of flowers and dark brown tissue, all in 1A. MICROSCOPIC DIAGNOSIS Cervix, 12 o'clock, biopsy: LOW-GRADE SQUAMOUS INTRAEPITHELIAL LESION (PRIYA 1). CORRELATION: The concurrent cytology # [id number] was reviewed, contains low-grade squamous intraepithelial lesion and correlates. ADEQUACY: The specimen is fragmented and somewhat scanty but adequate for interpretation. COLPOSCOPIC IMPRESSION: Inflammation. OPERATION COLPOSCOPY WITH BIOPSY. POST OPERATIVE DIAGNOSIS Same. PREOPERATIVE DIAGNOSIS PRIYA 1, mild cervical dysplasia. Signed Electronically Signed KESHAV CARDONA MD 02/14/17 1402 END OF REPORT Normal [facility] POC Urinalysis Dipstick, Jonel valencia 01-25-2017 Interpretation and review of laboratory results Abnormal Invalid Interpretation Code [facility] Work Phone: Urine, bilirubin presence Negative Invalid Interpretation Code Negative mg/dL [facility] Work Phone: Urine, glucose presence Negative Invalid Interpretation Code Normal, Negative mg/dL [facility] Work Phone: Urine, hemoglobin presence Small Abnormal Negative RBC/uL [facility] Work Phone: Urine, ketones presence Negative Invalid Interpretation Code Negative mg/dL [facility] Work Phone: Urine, leukocyte esterase presence Moderate Abnormal Negative WBC/uL [facility] Work Phone: Urine, nitrite presence Positive Abnormal Negative [facility] Work Phone: Urine, pH 6.5 [pH] Invalid Interpretation Code 5.0 - 7.0 [facility] Work Phone: Urine, protein presence 30 Abnormal Negative mg/dL [facility] Work Phone: Urine, specific gravity 1.020 1 Invalid Interpretation Code 1.005 - 1.025 [facility] Work Phone: Urine, urobilinogen 0.2 mg/dL Invalid Interpretation Code <2.0, 0.2, Normal, Negative, 1.0, 2.0, <1.0 [facility] Work Phone: Vital Signs Date Time Vital Sign Value Performing Clinician Facility 11-12-2024 16:16-0400 Body height 172.7 cm Genia Cohen [facility] Work Phone: [facility] 11-12-2024 16:16-0400 Body mass index (BMI) [Ratio] 33.37 kg/m2 Genia Cohen [employer] Work Phone: [facility] 11-12-2024 16:16-0400 Body weight 99.56 kg Genia Cohen [employer] Work Phone: [facility] 11-12-2024 16:16-0400 Diastolic blood pressure 87 mm[Hg] Genia Cohen [employer] Work Phone: [facility] 11-12-2024 16:16-0400 Heart rate 80 /min Genia Cohen [employer] Work Phone: [facility] 11-12-2024 16:16-0400 Respiratory rate 16 /min Genia Cohen [employer] Work Phone: [facility] 11-12-2024 16:16-0400 SaO2% (BldA) [Mass fraction] 96 % Genia Cohen [employer] Work Phone: [facility] 11-12-2024 16:16-0400 Systolic blood pressure 119 mm[Hg] Genia Cohen [employer] Work Phone: [facility] 01-01-2024 16:48-0400 Body temperature 98.78 [degF] Niraj Kenndey [facility] 01-01-2024 16:48-0400 Body weight 93.4 kg Niraj Kennedy [facility] 01-01-2024 16:48-0400 Diastolic blood pressure 85 mm[Hg] Niraj Kennedy [facility] 01-01-2024 16:48-0400 Heart rate 82 /min Niraj Kennedy [facility] 01-01-2024 16:48-0400 Respiratory rate 16 /min Niraj Kennedy [facility] 01-01-2024 16:48-0400 SaO2% (BldA) [Mass fraction] 96 % Niraj Kennedy [facility] 01-01-2024 16:48-0400 Systolic blood pressure 124 mm[Hg] Niraj Kennedy [facility] 02-12-2023 07:52-0400 Body height 172.7 cm Genia Cohen [employer] Work Phone: [facility] 02-12-2023 07:52-0400 Body mass index (BMI) [Ratio] 30.18 kg/m2 Genia Cohen [employer] Work Phone: [facility] 02-12-2023 07:52-0400 Body temperature 98.4 [degF] Genia Cohen [employer] Work Phone: [facility] 02-12-2023 07:52-0400 Body weight 90.04 kg Genia Cohen [employer] Work Phone: [facility] 02-12-2023 07:52-0400 Diastolic blood pressure 83 mm[Hg] Genia Cohen [employer] Work Phone: [facility] 02-12-2023 07:52-0400 Heart rate 81 /min Genialissette Cohen [employer] Work Phone: [facility] 02-12-2023 07:52-0400 Respiratory rate 18 /min Genia Cohen [employer] Work Phone: [facility] 02-12-2023 07:52-0400 SaO2% (BldA) [Mass fraction] 96 % Genia Cohen [employer] Work Phone: [facility] 02-12-2023 07:52-0400 Systolic blood pressure 136 mm[Hg] Geniakandy Cohen [employer] Work Phone: [facility] 08-04-2021 09:56-0400 Body height 172.7 cm Genia Cohen CNP Work Phone: [facility] 08-04-2021 09:56-0400 Body mass index (BMI) [Ratio] 28.05 kg/m2 Genia Cohen CNP Work Phone: [facility] 08-04-2021 09:56-0400 Body temperature 97.7 [degF] Genia Cohen CNP Work Phone: [facility] 08-04-2021 09:56-0400 Body weight 83.69 kg Genia Cohen CNP Work Phone: [facility] 08-04-2021 09:56-0400 Diastolic blood pressure 76 mm[Hg] Genia Cohen CNP Work Phone: [facility] 08-04-2021 09:56-0400 Heart rate 67 /min Genia Cohen CNP Work Phone: [facility] 08-04-2021 09:56-0400 Respiratory rate 18 /min Genia Cohen CNP Work Phone: [facility] 08-04-2021 09:56-0400 SaO2% (BldA) [Mass fraction] 96 % Genia Cohen CNP Work Phone: [facility] 08-04-2021 09:56-0400 Systolic blood pressure 117 mm[Hg] Genia Cohen CNP Work Phone: [facility] 01-19-2021 10:05-0400 Body height 172.7 cm Joaquin Mayelin DO Work Phone: [facility] 01-19-2021 10:05-0400 Body mass index (BMI) [Ratio] 26.94 kg/m2 Joaquin Mayelin DO Work Phone: [facility] 01-19-2021 10:05-0400 Body temperature 98.29 [degF] Joaquin Mayelin DO Work Phone: [facility] 01-19-2021 10:05-0400 Body weight 80.38 kg Joaquin Guadalupet DO Work Phone: [facility] 01-19-2021 10:05-0400 Diastolic blood pressure 74 mm[Hg] Joaquin Guadalupet DO Work Phone: [facility] 01-19-2021 10:05-0400 Heart rate 74 /min Joaquin Guadalupet DO Work Phone: [facility] 01-19-2021 10:05-0400 SaO2% (BldA) [Mass fraction] 97 % Joaquin Dick DO Work Phone: [facility] 01-19-2021 10:05-0400 Systolic blood pressure 113 mm[Hg] Joaquin Dick DO Work Phone: [facility] 09-29-2020 09:02-0400 Body height 172.7 cm Genia Cohen CNP Work Phone: [facility] 09-29-2020 09:02-0400 Body mass index (BMI) [Ratio] 26.88 kg/m2 Genia Cohen CNP Work Phone: [facility] 09-29-2020 09:02-0400 Body temperature 97.81 [degF] Genia Cohen CNP Work Phone: [facility] 09-29-2020 09:02-0400 Body weight 80.2 kg Genia Cohen [employer] Work Phone: [facility] 09-29-2020 09:02-0400 Diastolic blood pressure 74 mm[Hg] Genia Cohen [employer] Work Phone: [facility] 09-29-2020 09:02-0400 Heart rate 74 /min Genia Cohen [employer] Work Phone: [facility] 09-29-2020 09:02-0400 Respiratory rate 18 /min Genia Cohen [employer] Work Phone: [facility] 09-29-2020 09:02-0400 SaO2% (BldA) [Mass fraction] 96 % Genia Cohen [employer] Work Phone: [facility] 09-29-2020 09:02-0400 Systolic blood pressure 120 mm[Hg] Genia Cohen [employer] Work Phone: [facility] 02-24-2017 10:28-0400 BMI (Body Mass Index) 24.33 kg/m2 Luis Ramos [facility] Work Phone: 02-24-2017 10:28-0400 Body Temperature 98.1 [degF] Luis Ramos [facility] Work Phone: 02-24-2017 10:28-0400 BP Diastolic 74 mm[Hg] Luis Ramos [facility] Work Phone: 02-24-2017 10:28-0400 BP Systolic 112 mm[Hg] Luis Ramos [facility] Work Phone: 02-24-2017 10:28-0400 Height 172.[address] [facility] Work Phone: 02-24-2017 10:28-0400 Pulse (Heart Rate) 67 /min Luis Ramos [facility] Work Phone: 02-24-2017 10:28-0400 Pulse Oximetry 97 % Luis Ramos [facility] Work Phone: 02-24-2017 10:28-0400 Respiratory Rate 14 /min Luis Ramos [facility] Work Phone: 02-24-2017 10:28-0400 Weight 72.[address] [facility] Work Phone: 01-25-2017 10:57-0400 BMI (Body Mass Index) 25.54 kg/m2 [facility] Work Phone: 01-25-2017 10:57-0400 Body Temperature 98.1 [degF] [facility] Work Phone: 01-25-2017 10:57-0400 BP Diastolic 78 mm[Hg] [facility] Work Phone: 01-25-2017 10:57-0400 BP Systolic 117 mm[Hg] [facility] Work Phone: 01-25-2017 10:57-0400 Height 172.7 cm [facility] Work Phone: 01-25-2017 10:57-0400 Pulse (Heart Rate) 76 /min [facility] Work Phone: 01-25-2017 10:57-0400 Pulse Oximetry 96 % [facility] Work Phone: 01-25-2017 10:57-0400 Respiratory Rate 15 /min [facility] Work Phone: 01-25-2017 10:57-0400 Weight 76.2 kg [facility] Work Phone: Encounters Encounter Date Encounter Type Care Provider Facility Start: 02-17-2025 ambulatory [facility] Facility :[facility] Start: 02-09-2025 End: 02-09-2025 ambulatory [facility] Start: 11-18-2024 End: 01-18-2025 Follow-up encounter Genia Cohen [employer] Work Phone: [facility] Comment on above: B12/Folate, TSH with Reflex Free T4, Vitamin D, Total, 25-OH, Additional followed-up results: 5 Start: 11-12-2024 End: 11-12-2024 Patient encounter status Genia Cohen [employer] Work Phone: [facility] Work Phone: Start: 11-12-2024 End: 11-12-2024 Periodic preventive med est patient 18-39 yrs Genia Cohen [employer] Work Phone: [facility] Comment on above: Routine general medi ivy examination at a health care facility (Primary Dx); Anxiety; Fatigue, unspecified type; Menorrhagia with regular cycle; Vitamin D deficiency; Screening for diabetes mellitus Start: 11-12-2024 End: 11-16-2024 ambulatory GENIA COHEN [facility] Start: 11-12-2024 End: 11-16-2024 Encounter for general adult medical examination without abnormal findings GENIA COHEN [facility] Start: 10-13-2024 End: 10-20-2024 Refill Genia Cohen [employer] Work Phone: [facility] Comment on above: Anxiety Start: 01-01-2024 End: 01-01-2024 Subsequent hospital visit by physician [facility] Comment on above: Generalized abdomina l pain Start: 01-01-2024 End: 01-01-2024 ambulatory NIRAJ KENNEDY [facility] Start: 01-01-2024 Niraj Kennedy [facility] Start: 08-16-2023 End: 08-16-2023 Office outpatient visit 15 minutes Genialissette Cohen [employer] Work Phone: [facility] Comment on above: Anxiety Start: 08-06-2023 Refill Vannessafely Porter ans [employer] Work Phone: [facility] Comment on above: Anxiety Start: 07-30-2023 Refill Genia Arias se Cohen [employer] Work Phone: [facility] Comment on above: Anxiety Start: 06-12-2023 Refill Genia Arias Cohen [employer] Work Phone: [facility] Comment on above: Anxiety Start: 03-15-2023 End: 03-15-2023 Office outpatient visit 15 minutes Geniakandy Cohen [employer] Work Phone: [facility] Comment on above: Anxiety (Primary Dx) Start: 02-12-2023 End: 02-16-2023 ambulatory GENIA COHEN [facility] Start: 02-12-2023 End: 02-16-2023 Encounter for general adult medical examination without abnormal findings GENIA COHEN [facility] Start: 02-12-2023 End: 02-12-2023 Patient encounter status Genia Cohen [employer] Work Phone: [facility] Start: 02-12-2023 End: 02-12-2023 Periodic preventive med est patient 18-39 yrs Genia Cohen [employer] Work Phone: [facility] Comment on above: Routine general medi ivy examination at a health care facility (Primary Dx); Routine Papanicolaou smear; Anxiety; Immunization due Start: 04-26-2022 End: 04-27-2022 [facility]: 10-28-2021 End: 10-28-2021 Office outpatient visit 15 minutes Genia Cohen [employer] Work Phone: [facility] Comment on above: Anxiety (Primary Dx) ; Attention deficit Start: 08-18-2021 Orders Only Genia Cohen [employer] Work Phone: [facility] Comment on above: Strain of right goss llar tendon, subsequent encounter (Primary Dx) Start: 08-15-2021 End: 08-16-2021 ambulatory GENIALISSETTE COHEN [facility] Start: 08-04-2021 End: 08-04-2021 Office outpatient visit 25 minutes Genia Cohen [employer] Work Phone: [facility] Comment on above: Acute pain of right knee (Primary Dx); Anxiety Start: 01-19-2021 End: 01-19-2021 Office outpatient visit 15 minutes Joaquin Dick DO Work Phone: [facility] Comment on above: Anxiety Start: 10-20-2020 End: 10-20-[address] [facility] Start: 10-20-2020 Coordination of care plan Christiano Dawn COUNT TEAM MEMBER [facility] Comment on above: Care coordination - [facility] Start: 09-29-2020 End: 09-29-2020 Office outpatient new 45 minutes Genia Zayra Cohen [employer] Work Phone: [facility] Comment on above: Anxiety (Primary Dx) ; Irregular periods; Missed period; Dysuria; Encounter for counseling regarding contraception Start: 07-10-2017 Ambulatory ML ACEVEDO Facility:. Start: 02-24-2017 End: 02-24-2017 Ambulatory ORTIZ SABILLON [facility] Start: 02-24-2017 Office outpatient vi sit 15 minutes Luis Ramos Work Phone: [facility] Start: 02-09-2017 Ambulatory ML ACEVEDO Facility:. Start: 01-25-2017 End: 01-25-2017 Ambulatory KATI REYES [facility] Start: 01-25-2017 Office/outpatient visit, new, level 2 Kati Reyes Work Phone: [facility] Procedures Date Procedure Procedure Detail Performing Clinician Start: 11-12-2024 Basic metabolic pane l calcium total Genia Cohen [employer] Work Phone: Start: 11-12-2024 Complete blood count with white cell differential, manual Genia Cohen [employer] Work Phone: Start: 11-12-2024 Lipid panel Genia Cohen [employer] Work Phone: Start: 01-01-2024 XR URGENT CARE XRAY Cole Kennedy MD Work Phone: Start: 02-12-2023 Microscopic observat ion [Identifier] in Cervix by Cyto stain Genia Cohen [employer] Work Phone: Start: 09-29-2020 End: 09-29-2020 Urnls dip stick/tablet rgnt non-auto w/o micrscp Geniakandy Baronefreddy PONCE Work Phone: Start: 09-29-2020 Adult depression scr eening assessment Genia Cohen CNP Work Phone: Start: 05-27-2019 [facility] PAP SMEAR Historical Provider Start: 05-27-2019 Microscopic observat ion [Identifier] in Cervix by Cyto stain Genia Cohen CNP Work Phone: Plan of Treatment Date Care Activity Detail Author Start: 2044 Zoster Vaccines (1 of 2) Zoste r Vaccines (1 of 2) [facility] Start: 02-12-2026 Screening for malign ant neoplasm of cervix [facility] Start: 11-12-2025 History and physical examination, annual for health maintenance Wellness Visit [facility] Start: 12-29-2024 COVID-19 Vaccine ( season) COVID-19 Vaccine ( season) [facility] Start: 12-29-2024 Influenza vaccination [facility] Start: 11-04-2024 End: 11-04-2024 Patient encounter procedure 11/04/2024 2:40 PM EDT Office Visit [facility] [address] [place] [id number] Genia Cohen CNP [address] [place] [address] [facility] Start: 2024 Screening for malign ant neoplasm of cervix HPV/Cotest [facility] Start: 02-13-2024 History and physical examination, annual for health maintenance Wellness Visit [facility] Start: 12-30-2023 COVID-19 Vaccine ( season) COVID-19 Vaccine ( season) [facility] Start: 12-30-2023 COVID-19 Vaccine ( season) COVID-19 Vaccine ( season) [facility] Start: 12-30-2023 Influenza vaccination Influenza Vacc ine (#1) [facility] Start: 08-16-2023 End: 08-16-2023 Telemedicine consultation with patient 08/16/2023 8:[address] [facility] [address] [place] [address] Genia Cohen CNP [address] [place] [address] [facility] Start: 03-15-2023 End: 03-15-2023 Telemedicine consultation with patient 03/15/2023 7:30 [address] [facility] [address] [place] [address] Omid Genia Zayra, [employer] [address] [place] [address] [facility] Start: 12-29-2022 COVID-19 Vaccine () COVID-19 Vaccine () [facility] Start: 05-27-2022 Screening for malign ant neoplasm of cervix Pap Smear [facility] Start: 12-29-2021 Influenza vaccination [facility] Start: 09-29-2021 Depression screening using PHQ-9 (Patient Health Questionnaire 9) score [facility] Start: 07-23-2021 COVID-19 Vaccine (3 - Booster for Pfizer series) COVID-19 Vaccine (3 - Booster for Pfizer series) [facility] Start: 12-29-2020 Influenza vaccination Sequenti al Influenza Vaccine (#1) [facility] Start: 02-26-2018 DTaP/Tdap/Td Vaccine s (7 - Td or Tdap) DTaP/Tdap/Td Vaccines (7 - Td or Tdap) [facility] Start: 02-26-2018 Tetanus vaccination Tetanus: Every [address] [facility] Start: 12-29-2016 Influenza vaccination SEQUENTI AL INFLUENZA VACCINE (#1) [facility] Work Phone: Start: 10-26-2015 Screening for malign ant neoplasm of cervix HPV/Cotest [facility] Start: 2012 Hepatitis C screening Hepatitis C Sc reening [facility] Start: 2009 HIV screening HIV Screening [facility] Start: 02-09-2009 Hepatitis A Vaccines (2 of 2 - 2-dose series) Hepatitis A Vaccines (2 of 2 - 2-dose series) [facility] Start: 2006 COVID-19 Vaccine (1) COVID-19 Vaccin e (1) [facility] Start: 2005 Vaccination for sotero n papillomavirus [facility] Work Phone: Start: 1997 History and physical examination, annual for health maintenance Wellness Visit [facility] Start: 1994 HIV screening HIV Screening [facility] Start: 1994 Lipid panel Lipid Panel [facility] Start: 1994 Screening for malign ant neoplasm of cervix PAP SMEAR [facility] Work Phone: Start: 1994 Tetanus vaccination [facility] Start: 1994 Yearly Adult Physical Yearly Adult P [facility] End: 09-29-2021 B12/Folate B12/Folate Lab Routine Missed period Dysuria Anxiety Irregular periods 1 Occurrences starting 09/29/2020 until 09/29/2021 [facility] Comment on above: 1 Occurrences starti ng 09/29/2020 until 09/29/2021 B12/Folate B12/Folate Lab R outine Missed period Dysuria Anxiety Irregular periods 09/29/2020 9:[address] [facility] End: 02-13-2024 B12/Folate B12/Folate Lab Routine Anxiety Routine general medical examination at a health care facility 1 Occurrences starting 02/12/2023 until 02/13/2024 [facility] Comment on above: 1 Occurrences starti ng 02/12/2023 until 02/13/2024 B12/Folate B12/Folate Lab R outine Anxiety Routine general medical examination at a health care facility 02/12/2023 8:[address] [facility] Bacteria aerobode culture Urine Aerobic Culture Routine Acute cystitis without hematuria 01/25/2017 10:[address] [facility] Work Phone: End: 09-29-2021 Comprehensive metabolic 2000 panel - Serum or Plasma Comprehensive Metabolic Panel Lab Routine Missed period Dysuria Anxiety Irregular periods 1 Occurrences starting 09/29/2020 until 09/29/2021 [facility] Comment on above: 1 Occurrences starti ng 09/29/2020 until 09/29/2021 Comprehensive metabo lic 2000 panel - Serum or Plasma Comprehensive Metabolic Panel Lab Routine Missed period Dysuria Anxiety Irregular periods 09/29/2020 9:[address] [facility] End: 02-13-2024 Comprehensive metabolic 2000 panel - Serum or Plasma Comprehensive Metabolic Panel Lab Routine Anxiety Routine general medical examination at a health care facility 1 Occurrences starting 02/12/2023 until 02/13/2024 [facility] Comment on above: 1 Occurrences starti ng 02/12/2023 until 02/13/2024 Comprehensive metabo lic 2000 panel - Serum or Plasma Comprehensive Metabolic Panel Lab Routine Anxiety Routine general medical examination at a health care facility 02/12/2023 8:[address] [facility] End: 02-13-2024 Hemoglobin A1c/Hemoglobin.total in Blood Hemoglobin A1c Lab Routine Anxiety Routine general medical examination at a health care facility 1 Occurrences starting 02/12/2023 until 02/13/2024 [facility] Comment on above: 1 Occurrences starti ng 02/12/2023 until 02/13/2024 Hemoglobin A1c/Hemoglobin.total in Blood Hemoglobin A1c Lab Routine Anxiety Routine general medical examination at a health care facility 02/12/2023 8:[address] [facility] End: 02-13-2024 Lipid 1996 panel - Serum or Plasma Lipid Panel Lab Routine Anxiety Routine general medical examination at a health care facility 1 Occurrences starting 02/12/2023 until 02/13/2024 [facility] Comment on above: 1 Occurrences starti ng 02/12/2023 until 02/13/2024 Lipid 1996 panel - S gerardo or Plasma Lipid Panel Lab Routine Anxiety Routine general medical examination at a health care facility 02/12/2023 8:[address] [facility] Microscopic examinat ion of vaginal Papanicolaou smear Thinprep Pap Smear Pathology and Cytology Routine Routine Papanicolaou smear Ordered: 02/12/2023 [facility] Work Phone: Comment on above: Ordered: 02/12/2023 End: 08-04-2022 MR Knee Right Without Contrast MR Knee Right Without Contrast Imaging Routine Acute pain of right knee 1 Occurrences starting 08/04/2021 until 08/04/2022 [facility] Comment on above: 1 Occurrences starti ng 08/04/2021 until 08/04/2022 End: 09-29-2021 Thyrotropin [Units/volume] in Serum or Plasma TSH with Reflex Free T4 Lab Routine Missed period Dysuria Anxiety Irregular periods 1 Occurrences starting 09/29/2020 until 09/29/2021 [facility] Comment on above: 1 Occurrences starti ng 09/29/2020 until 09/29/2021 Thyrotropin [Units/volume] in Serum or Plasma TSH with Reflex Free T4 Lab Routine Missed period Dysuria Anxiety Irregular periods 09/29/2020 9:[address] [facility] End: 02-13-2024 Thyrotropin [Units/volume] in Serum or Plasma TSH with Reflex Free T4 Lab Routine Anxiety Routine general medical examination at a health care facility 1 Occurrences starting 02/12/2023 until 02/13/2024 [facility] Comment on above: 1 Occurrences starti ng 02/12/2023 until 02/13/2024 Thyrotropin [Units/volume] in Serum or Plasma TSH with Reflex Free T4 Lab Routine Anxiety Routine general medical examination at a health care facility 02/12/2023 8:[address] [facility] End: 09-29-2021 Vitamin D, 25-hydroxy measurement Vitamin D, Total, 25-OH Lab Routine Missed period Dysuria Anxiety Irregular periods 1 Occurrences starting 09/29/2020 until 09/29/2021 [facility] Comment on above: 1 Occurrences starti ng 09/29/2020 until 09/29/2021 Vitamin D, 25-hydrox y measurement Vitamin D, Total, 25-OH Lab Routine Missed period Dysuria Anxiety Irregular periods 09/29/2020 9:[address] [facility] End: 02-13-2024 Vitamin D, 25-hydroxy measurement Vitamin D, Total, 25-OH Lab Routine Anxiety Routine general medical examination at a health care facility 1 Occurrences starting 02/12/2023 until 02/13/2024 [facility] Comment on above: 1 Occurrences starti ng 02/12/2023 until 02/13/2024 Vitamin D, 25-hydrox y measurement Vitamin D, Total, 25-OH Lab Routine Anxiety Routine general medical examination at a health care facility 02/12/2023 8:[address] [facility] End: 08-04-2022 XR Knee Right 2 Views (Standard) XR Knee Right 2 Views (Standard) Imaging Routine Acute pain of right knee 1 Occurrences starting 08/04/2021 until 08/04/2022 [facility] Work Phone: Comment on above: 1 Occurrences starti ng 08/04/2021 until 08/04/2022 Immunizations Immunization Date Immunization Notes Care Provider Fa hiram 02-12-2023 influenza, injectabl e, quadrivalent, preservative free Genia Cohen [employer] Work Phone: [facility] 02-12-2023 flu vacc [id number] 6 mos up,PF, (FLUZONE QUAD/FLULAVAL QUAD/FLUARIX QUAD) 60 mcg (15 mcg x 4)/0.5 mL Syrg syringe Genia Cohen [employer] Work Phone: [facility] 02-12-2023 influenza virus vacc ine, unspecified formulation Wellst Xr1 [facility] Work Phone: 02-09-2020 influenza, injectabl e, quadrivalent, preservative free Genia Cohen [employer] Work Phone: [facility] 01-23-2019 influenza, injectabl e, quadrivalent, preservative free Genia Cohen [employer] Work Phone: [facility] 02-07-2018 Influenza, injectabl e, Madin [place] Canine Kidney, preservative free, quadrivalent Genia Cohen [employer] Work Phone: [facility] 01-30-2017 influenza, injectabl e, quadrivalent, preservative free Genialissette Cohen [employer] Work Phone: [facility] 01-25-2015 influenza, seasonal, injectable Genia Cohen [employer] Work Phone: [facility] 02-05-2013 influenza, injectabl e, quadrivalent, preservative free Genia Cohen [employer] Work Phone: [facility] 12-21-2011 meningococcal polysaccharide (groups A, C, Y and W-135) diphtheria toxoid conjugate vaccine (MCV4P) Genia Cohen [employer] Work Phone: [facility] 08-10-2008 hepatitis A vaccine, adult dosage Genia Cohen [employer] Work Phone: [facility] 08-10-2008 human papilloma viru s vaccine, quadrivalent Genia Cohen [employer] Work Phone: [facility] 08-10-2008 hepatitis A and hepatitis B vaccine Wellst Xr1 [facility] Work Phone: 05-08-2008 human papilloma viru s vaccine, quadrivalent Genia Cohen [employer] Work Phone: [facility] 02-27-2008 hepatitis A vaccine, adult dosage Genia Cohen [employer] Work Phone: [facility] 02-27-2008 human papilloma viru s vaccine, quadrivalent Genia Cohen [employer] Work Phone: [facility] 02-27-2008 tetanus toxoid, redu radu diphtheria toxoid, and acellular pertussis vaccine, adsorbed Genia Cohen [employer] Work Phone: [facility] 02-27-2008 varicella virus vaccine Step lissette Cohen [facility] Work Phone: [facility] 01-23-2000 diphtheria, tetanus toxoids and acellular pertussis vaccine Genia Cohen [facility] Work Phone: [facility] 01-23-2000 measles, mumps and rubella virus vaccine Genia Cohen [facility] Work Phone: [facility] 01-23-2000 poliovirus vaccine, inactivated Genia Cohen [facility] Work Phone: [facility] 09-22-1998 varicella virus vaccine Shoaib Cohen [facility] Work Phone: [facility] 12-30-1997 diphtheria, tetanus toxoids and acellular pertussis vaccine, unspecified formulation Genia Cohen [facility] Work Phone: [facility] 12-30-1997 haemophilus influenz ae type b vaccine, conjugate unspecified formulation Genia Cohen [employer] Work Phone: [facility] 01-07-1997 diphtheria, tetanus toxoids and acellular pertussis vaccine Genia Cohen [facility] Work Phone: [facility] 01-07-1997 haemophilus influenz ae type b vaccine, PRP-T conjugate Genia Cohen [facility] Work Phone: [facility] 10-27-1995 hepatitis B vaccine, adult dosage Genia Cohen [employer] Work Phone: [facility] 10-04-1995 measles, mumps and rubella virus vaccine Genia Cohen [employer] Work Phone: [facility] 07-03-1995 diphtheria, tetanus toxoids and acellular pertussis vaccine Genia Cohen [employer] Work Phone: [facility] 07-03-1995 haemophilus influenz ae type b vaccine, PRP-T conjugate Genia Cohen [employer] Work Phone: [facility] 07-03-1995 hepatitis B vaccine, adult dosage Genia Cohen [employer] Work Phone: [facility] 07-03-1995 poliovirus vaccine, inactivated Genia Cohen [employer] Work Phone: [facility] 05-03-1995 DTP-Haemophilus influenzae type b conjugate vaccine Genia Cohen [employer] Work Phone: [facility] 05-03-1995 poliovirus vaccine, inactivated Genia Cohen [employer] Work Phone: [facility] 02-06-1995 DTP-Haemophilus influenzae type b conjugate vaccine Genia Cohen [employer] Work Phone: [facility] 02-06-1995 hepatitis B vaccine, adult dosage Genia Cohen [employer] Work Phone: [facility] 02-06-1995 poliovirus vaccine, inactivated Genia Cohen [employer] Work Phone: [facility] 1994 hepatitis B vaccine, pediatric or pediatric/adolescent dosage Genia Cohen [employer] Work Phone: [facility] Payers Date Payer Category Payer Self-pay 2022 Managed Care HMO (unspecified) [facility] HMO/CHOICE PLUS/HARI/HARI PLUS [id number] 2022 Unknown [facility] HMO/[place] CE PLUS/HARI/HARI PLUS [id number] 2022-Present [phone] [address] [place] [address] [id number] 2022 Unknown [id number] 2017 Private Health Insurance [id number] 2017 Private Health Insurance [id number] 2017 Private Health Insurance [employer] A ETNA CHOICE POS/POSII/PREMIER CARE/PREMIER CARE PLUS [id number] 2017-Present [phone] [address] [place] [address] [id number] 2014 Medicaid [id number] 1994 Unknown [id number] 1994 Unknown [id number] 1994 Unknown [id number] 1994 Unknown [id number] Unknown [id number] Unknown [id number] Social History Date Type Detail Facility Start: 01-25-2017 End: 08-04-2021 Tobacco smoking status NHIS Never smoker [facility] Work Phone: Start: 1995 Sex Assigned At Not on file [facility] Work Phone: Start: 09-29-2020 End: 08-04-2021 Tobacco use and exposure Never used [facility] Start: 09-29-2020 End: 11-13-2024 Alcohol intake Current drinker of alcohol (finding) [facility] Start: 09-29-2020 History SDOH Social Connections Get Together 4 [facility] Start: 09-29-2020 History SDOH Food Worry 1 [facility] Start: 09-29-2020 History SDOH Transport Med 2 [facility] Start: 01-25-[address] [facility] Start: 07-25-2021 End: 08-15-2021 Exposure to SARS-CoV-2 (event) Not sure [facility] Start: 09-29-2020 End: 08-04-[address] [facility] Start: 09-29-2020 End: 11-13-2024 Social connection and isolation panel [facility] Frequency of Communication with Friends and Family Not on file [facility] How hard is it for y ou to pay for the very basics like food, housing, medical care, and heating Not very hard [facility] (I/We) worried whealexx er (my/our) food would run out before (I/we) got money to buy more. Never true [facility] Start: 02-21-2018 Gender identity Identifies as female gender (finding) [facility] Start: 02-21-2018 Sexual orientation Heterosexual (finding) [facility] Work Phone: Clinical Notes 09-29-2020 to 11-12-2024 Genia Cohen CNP - 11/12/2024 4:29 PM EDTTelephone Encounter - Octavia Davis LPN - 10/14/2024 3:13 PM EDTTelephone Encounter - Octavia Davis LPN - 10/14/2024 3:13 PM EDTAttachments Note Date & Type Note Facility 11-12-2024 Note Subjective: Patient ID: Laura Wiley is a 29 y.o. female. Chief Complaint Patient presents with Gap Closure (Health Maintenance) HIV Screening Never done Hepatitis C Screening Never done Tetanus: Every 10yrs due on 02/26/2018 Depression Screening/Follow-Up (PHQ-2/9) due on 09/29/2021 COVID-19 Vaccine( season) due on 12/30/2023 Wellness Visit due on 02/13/2024 Annual Exam HPI Patient presents to office today for her annual exam. Overall, they report doing pretty well. They do not have any additional questions or concerns today. Health and Wellness Diet: Well balanced diet - healthy overall. Could do better with water intake. Exercise: Walking her dog twice daily Sleep: Struggling with her sleep and fatigue lately. She is often needing to take names - sometimes up to 3 hours. She even feels tired when she gets good sleep. This has gotten worse over the past 2 years. 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 Contraception: None Substance Use Caffeine: regular coffee intake. Alcohol: 2-3 glasses wine/week. Nicotine: None Marijuana: None Street drugs: n/a Safety: Home/neighborhood safe?: yes Relationships safe?: Yes Fall risk?: no Sexual safety? N/a Vaccines: Immunization History Administered Date(s) Administered DTP / HiB 02/06/1995, 05/03/1995 DTaP 07/03/1995, 01/07/1997, 01/23/2000 DTaP, Unspecified 12/30/1997 HPV Quadrivalent (Gardasil) 02/27/2008, 05/08/2008, 08/10/2008 Hep A, 2 Dose Adult 02/27/2008, 08/10/2008 Hep B, Adult 02/06/1995, 07/03/1995, 10/27/1995 Hepatitis B 1995 HiB 12/30/1997 Hib (PRP-T) 07/03/1995, 01/07/1997 INFLUENZA IIV4 6MO OR > FLUARIX/FLUZONE/AFLURIA [id number] 01/23/2019, 02/09/2020, 02/12/2023 INFLUENZA QUAD 4YO OR >FLUCELVAX [id number] 02/07/2018 IPV 02/06/1995, 05/03/1995, 07/03/1995, 01/23/2000 Influenza, Injectable, Quadrivalent, Preservative Free 02/05/2013, 01/30/2017 Influenza, Seasonal, Injectable 01/25/2015 MMR 10/04/1995, 01/23/2000 Meningococcal Conjugate (MENACTRA) 12/21/2011 Pfizer SARS-CoV-2 Vaccination 02/01/2021, 02/22/2021 Tdap 02/27/2008 Varicella (Varivax) 09/22/1998, 02/27/2008 Cancer Screening/Health maintenence: Skin cancer: Has seen dermatology PAP smear: 02/12/2023 Depression screening: Mental health: Anxiety is generally well controlled. Her moods are much more even. Zoloft is helping much better. The following portions of the patient's history were reviewed and updated as appropriate: allergies, current medications, past family history, past medical history, past social history, past surgical history, and problem list. Past Medical History: Diagnosis Date Anemia Anxiety Depression GERD (gastroesophageal reflux disease) Allergies[1] Active Home Medications Medication Sig Take Last Dose On Take Morning of Surgery Comment(s) azelaic acid (FINACEA) 15 % gel Apply topically 2 (two) times a day . hydrOXYzine (ATARAX) 10 MG tablet Take 1 (one) tablet to 2 (two) tablets (10-20 mg total) by mouth 3 (three) times a day as needed for anxiety . sertraline (ZOLOFT) 50 MG tablet Take 1 (one) tablet (50 mg total) by mouth daily . Review of Systems As above Objective: BP 119/87 (BP Location: Left arm, Patient Position: Sitting) Pulse 80 Resp 16 Ht 5' 8 Wt 99.6 kg (219 lb 8 oz) SpO2 96% BMI 33.37 kg/m Physical Exam Vitals reviewed. Constitutional: General: She is not in acute distress. Appearance: Normal appearance. She is well-developed and normal weight. She is not ill-appearing, toxic-appearing or diaphoretic. HENT: Head: Normocephalic and atraumatic. Cardiovascular: Rate and Rhythm: Normal rate and regular rhythm. Heart sounds: Normal heart sounds. No murmur heard. No friction rub. No gallop. Pulmonary: Effort: Pulmonary effort is normal. No respiratory distress. Breath sounds: Normal breath sounds. Musculoskeletal: General: Normal range of motion. Cervical back: Neck supple. Skin: General: Skin is warm and dry. Coloration: Skin is not pale. Findings: No erythema or rash. Neurological: General: No focal deficit present. Mental Status: She is alert and oriented to person, place, and time. Psychiatric: Mood and Affect: Mood normal. Behavior: Behavior normal. Thought Content: Thought content normal. Judgment: Judgment normal. Assessment/Plan: ORDERS PLACED THIS VISIT Orders Placed This Encounter Procedures CBC and Differential Hemoglobin A1c Basic Metabolic Panel B12/Folate Iron Study with Ferritin TSH with Reflex Free T4 Vitamin D, Total, 25-OH Lipid Panel Routine general medical examination at a health care facility Patient presents for community health adult exam Labs orde (more content not included)... [facility] 11-12-2024 History of Presen t illness Narrative Subjective: Patient ID: Laura Wiley is a 29 y.o. female. Chief Complaint Patient presents with Gap Closure (Health Maintenance) HIV Screening Never done Hepatitis C Screening Never done Tetanus: Every 10yrs due on 02/26/2018 Depression Screening/Follow-Up (PHQ-2/9) due on 09/29/2021 COVID-19 Vaccine( season) due on 12/30/2023 Wellness Visit due on 02/13/2024 Annual Exam HPI Patient presents to office today for her annual exam. Overall, they report doing pretty well. They do not have any additional questions or concerns today. Health and Wellness Diet: Well balanced diet - healthy overall. Could do better with water intake. Exercise: Walking her dog twice daily Sleep: Struggling with her sleep and fatigue lately. She is often needing to take names - sometimes up to 3 hours. She even feels tired when she gets good sleep. This has gotten worse over the past 2 years. 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 Contraception: None Substance Use Caffeine: regular coffee intake. Alcohol: 2-3 glasses wine/week. Nicotine: None Marijuana: None Street drugs: n/a Safety: Home/neighborhood safe?: yes Relationships safe?: Yes Fall risk?: no Sexual safety? N/a Vaccines: Immunization History Administered Date(s) Administered DTP / HiB 02/06/1995, 05/03/1995 DTaP 07/03/1995, 01/07/1997, 01/23/2000 DTaP, Unspecified 12/30/1997 HPV Quadrivalent (Gardasil) 02/27/2008, 05/08/2008, 08/10/2008 Hep A, 2 Dose Adult 02/27/2008, 08/10/2008 Hep B, Adult 02/06/1995, 07/03/1995, 10/27/1995 Hepatitis B 1995 HiB 12/30/1997 Hib (PRP-T) 07/03/1995, 01/07/1997 INFLUENZA IIV4 6MO OR > FLUARIX/FLUZONE/AFLURIA [id number] 01/23/2019, 02/09/2020, 02/12/2023 INFLUENZA QUAD 4YO OR >FLUCELVAX [id number] 02/07/2018 IPV 02/06/1995, 05/03/1995, 07/03/1995, 01/23/2000 Influenza, Injectable, Quadrivalent, Preservative Free 02/05/2013, 01/30/2017 Influenza, Seasonal, Injectable 01/25/2015 MMR 10/04/1995, 01/23/2000 Meningococcal Conjugate (MENACTRA) 12/21/2011 Pfizer SARS-CoV-2 Vaccination 02/01/2021, 02/22/2021 Tdap 02/27/2008 Varicella (Varivax) 09/22/1998, 02/27/2008 Cancer Screening/Health maintenence: Skin cancer: Has seen dermatology PAP smear: 02/12/2023 Depression screening: Mental health: Anxiety is generally well controlled. Her moods are much more even. Zoloft is helping much better. The following portions of the patient's history were reviewed and updated as appropriate: allergies, current medications, past family history, past medical history, past social history, past surgical history, and problem list. Past Medical History: Diagnosis Date Anemia Anxiety Depression GERD (gastroesophageal reflux disease) Allergies[1] Active Home Medications Medication Sig Take Last Dose On Take Morning of Surgery Comment(s) azelaic acid (FINACEA) 15 % gel Apply topically 2 (two) times a day . hydrOXYzine (ATARAX) 10 MG tablet Take 1 (one) tablet to 2 (two) tablets (10-20 mg total) by mouth 3 (three) times a day as needed for anxiety . sertraline (ZOLOFT) 50 MG tablet Take 1 (one) tablet (50 mg total) by mouth daily . Review of Systems As above Objective: BP 119/87 (BP Location: Left arm, Patient Position: Sitting) Pulse 80 Resp 16 Ht 5' 8 Wt 99.6 kg (219 lb 8 oz) SpO2 96% BMI 33.37 kg/m Physical Exam Vitals reviewed. Constitutional: General: She is not in acute distress. Appearance: Normal appearance. She is well-developed and normal weight. She is not ill-appearing, toxic-appearing or diaphoretic. HENT: Head: Normocephalic and atraumatic. Cardiovascular: Rate and Rhythm: Normal rate and regular rhythm. Heart sounds: Normal heart sounds. No murmur heard. No friction rub. No gallop. Pulmonary: Effort: Pulmonary effort is normal. No respiratory distress. Breath sounds: Normal breath sounds. Musculoskeletal: General: Normal range of motion. Cervical back: Neck supple. Skin: General: Skin is warm and dry. Coloration: Skin is not pale. Findings: No erythema or rash. Neurological: General: No focal deficit present. Mental Status: She is alert and oriented to person, place, and time. Psychiatric: Mood and Affect: Mood normal. Behavior: Behavior normal. Thought Content: Thought content normal. Judgment: Judgment normal. Assessment/Plan: ORDERS PLACED THIS VISIT Orders Placed This Encounter Procedures CBC and Differential Hemoglobin A1c Basic Metabolic Panel B12/Folate Iron Study with Ferritin TSH with Reflex Free T4 Vitamin D, Total, 25-OH Lipid Panel Routine general medical examination at a health care facility Patient presents for well adult exam Labs ordered. - Encouraged healthy diet (prioritizing protein, fiber, fruits & veggies, water intake and weight bearing exercise (Body mass index is Body mass index is 33.37 kg/m ..) - Continue routine dental care - Immunizations reviewed - Encouraged regular exercise Anxiety - hydrOXYzine (ATARAX) 10 MG tablet; Take 1 (one) tablet to 2 (two) tablets (10-20 mg total) by mouth 3 (three) times a day as needed for anxiety . - sertraline (ZOLOFT) 50 MG tablet; Take 1 (one) tablet (50 mg total) by mouth daily . Anxiety is currently very well controlled on her regimen. Will refill her hydroxyzine today as she did very well on this. Fatigue, unspecified type Labs for further evaluation of the fatigue. Menorrhagia with regular cycle Continue with monitoring and management with OBGYN Vitamin D deficiency - Vitamin D, Total, 25-OH Screening for diabetes mellitus - Hemoglobin A1c; Future - Basic Metabolic Panel For any new medications prescribed today, patient was educated about indications for the medication, how to take the medication and potential side effects of the medications. Return in about 1 year (around 11/12/2025) for Physical, or sooner as needed. [1] No Known Allergies documented in this encounter [facility] 10-14-2024 Telephone encount er Note Appt made for 11/04/24 [facility] 10-14-2024 Miscellaneous Notes Formattin g of this note might be different from the original. Appt made for 11/04/24 Laura is requesting a refill for Requested Prescriptions Pending Prescriptions Disp Refills sertraline (ZOLOFT) 50 MG tablet 30 tablet 11 Sig: Take 1 (one) tablet (50 mg total) by mouth daily . Last refill: 07/09/24 # 90, 90 day supply Last appt: 08/16/23 Upcoming appt (when is it due or is it scheduled): none scheduled Return in about 6 months (around 02/15/2024) for Physical, or sooner as needed. Follow up: Patient has not been seen in past year. documented in this encounter [facility] 10-14-2024 Telephone encount er Note Laura is requesting a refill for Requested Prescriptions Pending Prescriptions Disp Refills sertraline (ZOLOFT) 50 MG tablet 30 tablet 11 Sig: Take 1 (one) tablet (50 mg total) by mouth daily . Last refill: 07/09/24 # 90, 90 day supply Last appt: 08/16/23 Upcoming appt (when is it due or is it scheduled): none scheduled Return in about 6 months (around 02/15/2024) for Physical, or sooner as needed. Follow up: Patient has not been seen in past year. [facility] 08-16-2023 History of Presen t illness Narrative Video Visit [facility] MEDICAL OFFICE [facility] [address] [facility] [phone] [facility] 08/16/2023 Genia Cohen CNP Provider Location: [place] Patient Location Help Desk Rep: None Patient Location: Patient's Home Patient: Laura Wiley Date of : 1995 (27 y.o. female) PCP: Genia Cohen CNP Video Visit Consent Statement: I discussed risks, benefits and alternatives of a video visit telemedicine consultation with the patient (and any accompanying persons) including the risks that the patient s personal health details and medical records will be discussed over real-time, synchronous, interactive video/audio/telecommunication technology, the visit will not be recorded without the express consent of both the provider and the patient, and that there are inherent diagnostic limitations compared to [id number] evaluations. We elected to proceed with the video visit telemedicine consultation. Subjective: Patient ID: Laura Wiley is a 27 y.o. female. No chief complaint on file. HPI Patient on video today to discuss her anxiety medicine. She's been doing really well overall with her medicine. She feels that it is helping her anxiety overall. She does still have some issues with her mind racing but it does not affect her sleep or her daily life. She still utilizes hydroxyzine intermittently. This is mostly at night before bed. It does make her little sleepy when she takes it but she feels better overall. The following portions of the patient's history were reviewed and updated as appropriate: allergies, current medications, past family history, past medical history, past social history, past surgical history, and problem list. Past Medical History: Diagnosis Date Anemia Anxiety Depression GERD (gastroesophageal reflux disease) No Known Allergies Active Home Medications Medication Sig Take Last Dose On Take Morning of Surgery Comment(s) hydrOXYzine (ATARAX) 10 MG tablet Take 1 (one) tablet to 2 (two) tablets (10-20 mg total) by mouth 3 (three) times a day as needed for anxiety . sertraline (ZOLOFT) 50 MG tablet Take 1 (one) tablet (50 mg total) by mouth daily . Review of Systems As above Objective: There were no vitals taken for this visit. Physical Exam Constitutional: General: She is not in acute distress. Appearance: Normal appearance. She is well-developed. She is not ill-appearing, toxic-appearing or diaphoretic. HENT: Head: Normocephalic and atraumatic. Nose: No congestion. Pulmonary: Effort: Pulmonary effort is normal. No respiratory distress. Skin: Coloration: Skin is not pale. Neurological: General: No focal deficit present. Mental Status: She is alert and oriented to person, place, and time. Psychiatric: Behavior: Behavior normal. Thought Content: Thought content normal. Judgment: Judgment normal. Assessment/Plan: ORDERS PLACED THIS VISIT No orders of the defined types were placed in this encounter. Diagnoses and all orders for this visit: Anxiety - sertraline (ZOLOFT) 50 MG tablet; Take 1 (one) tablet (50 mg total) by mouth daily . At this point, we will continue on the same regimen. Continue with nonpharmacologic management. Return to the office in 6 months or sooner if needed For any new medications prescribed today, patient was educated about indications for the medication, how to take the medication and potential side effects of the medications. Return in about 6 months (around 02/15/2024) for Physical, or sooner as needed. documented in this encounter [facility] 08-07-2023 Note Addended by: VANNESSA COOK on: 08/07/2023 09:09 AM Modules accepted: Orders [facility] 08-07-2023 Miscellaneous Notes Addended by: VANNESSA WILEY on: 08/07/2023 09:09 AM Modules accepted: Orders Per [employer] message 08/06/23 Hello! I moved recently to a new [facility] and requested a refill at a new pharmacy that was approved. I realized after that the pharmacy isn t open or the number is disconnected. I put in a new request at a different pharmacy ([facility] next door) but was denied documented in this encounter [facility] 08-06-2023 Telephone encount er Note Per [employer] message 08/06/23 Hello! I moved recently to a new [facility] and requested a refill at a new pharmacy that was approved. I realized after that the pharmacy isn t open or the number is disconnected. I put in a new request at a different pharmacy ([facility] next door) but was denied [facility] 08-06-2023 Miscellaneous Notes Formattin g of this note is different from the original. Per [employer] message 08/06/23 Hello! I moved recently to a new town and requested a refill at a new pharmacy that was approved. I realized after that the pharmacy isn t open or the number is disconnected. I put in a new request at a different pharmacy ([facility] next door) but was denied documented in this encounter [facility] 03-15-2023 History of Presen t illness Narrative Video Visit [facility] MEDICAL OFFICE [facility] [address] [facility] [id number] [facility] 03/15/2023 Genia Cohen CNP Provider Location: [place] Patient Location Help Desk Rep: None Patient Location: Patient's Home Patient: Laura Wiley Date of : 1995 (27 y.o. female) PCP: Genia Cohen CNP Video Visit Consent Statement: I discussed risks, benefits and alternatives of a video visit telemedicine consultation with the patient (and any accompanying persons) including the risks that the patient s personal health details and medical records will be discussed over real-time, synchronous, interactive video/audio/telecommunication technology, the visit will not be recorded without the express consent of both the provider and the patient, and that there are inherent diagnostic limitations compared to [id number] evaluations. We elected to proceed with the video visit telemedicine consultation. Subjective: Patient ID: Laura Wiley is a 27 y.o. female. Chief Complaint Patient presents with Medication Management HPI Patient on video today to discuss her mental health. She feels that she is tolerating zoloft well, but not getting any benefit yet. She is still very anxious, appetite is unchanged. Sleep is poor - cannot get to sleep. Her mind continues to race. The following portions of the patient's history were reviewed and updated as appropriate: allergies, current medications, past family history, past medical history, past social history, past surgical history, and problem list. Past Medical History: Diagnosis Date Anemia Anxiety Depression GERD (gastroesophageal reflux disease) No Known Allergies Active Home Medications Medication Sig Take Last Dose On Take Morning of Surgery Comment(s) hydrOXYzine (ATARAX) 10 MG tablet Take 1 (one) tablet to 2 (two) tablets (10-20 mg total) by mouth 3 (three) times a day as needed for anxiety . sertraline (ZOLOFT) 50 MG tablet Take 1 (one) tablet (50 mg total) by mouth daily . Review of Systems As above Objective: There were no vitals taken for this visit. Physical Exam Constitutional: General: She is not in acute distress. Appearance: Normal appearance. She is well-developed. She is not ill-appearing, toxic-appearing or diaphoretic. HENT: Head: Normocephalic and atraumatic. Nose: No congestion. Pulmonary: Effort: Pulmonary effort is normal. No respiratory distress. Skin: Coloration: Skin is not pale. Neurological: General: No focal deficit present. Mental Status: She is alert and oriented to person, place, and time. Psychiatric: Behavior: Behavior normal. Thought Content: Thought content normal. Judgment: Judgment normal. Assessment/Plan: ORDERS PLACED THIS VISIT No orders of the defined types were placed in this encounter. Diagnoses and all orders for this visit: Anxiety - sertraline (ZOLOFT) 50 MG tablet; Take 1 (one) tablet (50 mg total) by mouth daily . Other orders - hydrOXYzine (ATARAX) 10 MG tablet; Take 1 (one) tablet to 2 (two) tablets (10-20 mg total) by mouth 3 (three) times a day as needed for anxiety . Reviewed her zoloft dosing and anxiety. Will increase zoloft to 50mg and add in atarax for assistance with sleep and continued anxiety. Continue with nonpharmacologic management. Encouraged/discussed the benefits of therapy and she is understanding/agreeable to do this. For any new medications prescribed today, patient was educated about indications for the medication, how to take the medication and potential side effects of the medications. Return in about 4 weeks (around 04/12/2023) for Medication management. documented in this encounter [facility] 02-12-2023 Instructions Genia Cohen CNP - 02/12/2023 8:32 AM EDT [facility] [address], [place] [address] The following attachments cannot be sent through Care Everywhere.Flu Vaccine (Inactivated or Recombinant): VIS (Spanish)documented in this encounter [facility] 02-12-2023 History of Presen t illness Narrative Subjective: Patient ID: Laura Wiley is a 27 y.o. female. Chief Complaint Patient presents with Annual Exam HPI Patient in office today for her annual exam. Health and Wellness Diet: Good overall nutrition. Eating pretty healthy throughout the week. Exercise: Routine exercise. Sleep: Overall OK sleep. Dental health: No routine screenings. Vision health: Yes Substance Use Caffeine: 3-4 cups coffee daily. Alcohol: Rare Nicotine: None Prescription narcotics: None Street drugs: None Safety: Home/neighborhood safe?: Yes Relationships safe?: Yes Fall risk?: No Sexual safety? N/a Vaccines: Immunization History Administered Date(s) Administered DTP / HiB 02/06/1995, 05/03/1995 DTaP 07/03/1995, 01/07/1997, 01/23/2000 DTaP, Unspecified 12/30/1997 HPV Quadrivalent (Gardasil) 02/27/2008, 05/08/2008, 08/10/2008 Hep A, 2 Dose Adult 02/27/2008, 08/10/2008 Hep B, Adult 02/06/1995, 07/03/1995, 10/27/1995 Hepatitis B 1995 HiB 12/30/1997 Hib (PRP-T) 07/03/1995, 01/07/1997 INFLUENZA IIV4 6MO OR > FLUARIX/FLUZONE/AFLURIA 49916 01/23/2019, 02/09/2020, 02/12/2023 INFLUENZA QUAD 4YO OR >FLUCELVAX [id number] 02/07/2018 IPV 02/06/1995, 05/03/1995, 07/03/1995, 01/23/2000 Influenza, Injectable, Quadrivalent, Preservative Free 02/05/2013, 01/30/2017 Influenza, Seasonal, Injectable 01/25/2015 MMR 10/04/1995, 01/23/2000 Meningococcal Conjugate (MENACTRA) 12/21/2011 Pfizer SARS-CoV-2 Vaccination 02/01/2021, 02/22/2021 Tdap 02/27/2008 Varicella (Varivax) 09/22/1998, 02/27/2008 Cancer Screening/Health maintenence: Skin cancer: No routine screening Mammography: No Mammogram in Health Maintenance PAP smear: Health Maintenance Topic Date Due Pap Smear 05/27/2022 Depression screening: She has been having some anxiety, it does effect her here and there. Her anxiety is almost all day, everyday. She does have some panic attacks. Haven't yet started into therapy, but recently matched with [facility]. She was on Lexapro in the past, it made her sick, the side effects were poor. Patient denies further questions or concerns. The following portions of the patient's history were reviewed and updated as appropriate: allergies, current medications, past family history, past medical history, past social history, past surgical history, and problem list. Past Medical History: Diagnosis Date Anemia Anxiety Depression GERD (gastroesophageal reflux disease) No Known Allergies Active Home Medications Medication Sig Take Last Dose On Take Morning of Surgery Comment(s) flu vacc [id number] 6mos up,PF, (FLUZONE QUAD/FLULAVAL QUAD/FLUARIX QUAD) 60 mcg (15 mcg x 4)/0.5 mL Syrg syringe Sign this order in conjunction with the immunization order to satisfy [place] [employer] Positive ID requirements for immunization orders. . sertraline (ZOLOFT) 25 MG tablet Take 1 (one) tablet (25 mg total) by mouth daily . Review of Systems Constitutional: Negative for activity change, appetite change, chills, fever and unexpected weight change. HENT: Negative for hearing loss. Eyes: Negative for visual disturbance. Respiratory: Negative for cough, chest tightness, shortness of breath and wheezing. Cardiovascular: Negative for chest pain, palpitations and leg swelling. Gastrointestinal: Negative for abdominal pain, blood in stool, constipation, diarrhea, nausea and vomiting. Endocrine: Negative for cold intolerance, heat intolerance and polydipsia. Genitourinary: Negative for frequency and urgency. Musculoskeletal: Negative for arthralgias, joint swelling and myalgias. Skin: Negative for rash and wound. Allergic/Immunologic: Negative for environmental allergies. Neurological: Negative for dizziness, weakness, light-headedness, numbness and headaches. Hematological: Does not bruise/bleed easily. Psychiatric/Behavioral: Negative for sleep disturbance. The patient is not nervous/anxious. Objective: BP 136/83 (BP Location: Right arm, Patient Position: Sitting, BP Cuff Size: Adult) Pulse 81 Temp 98.4 F (36.9 C) (Skin) Resp 18 Ht 5' 8 Wt 90 kg (198 lb 8 oz) LMP 01/31/2023 SpO2 96% BMI 30.18 kg/m Physical Exam Constitutional: General: She is not in acute distress. Appearance: Normal appearance. She is well-developed and normal weight. She is not ill-appearing, toxic-appearing or diaphoretic. HENT: Head: Normocephalic and atraumatic. Right Ear: Hearing, tympanic membrane, ear canal and external ear normal. Left Ear: Hearing, tympanic membrane, ear canal and external ear normal. Nose: Nose normal. Mouth/Throat: Mouth: Mucous membranes are moist. Eyes: General: No scleral icterus. Conjunctiva/sclera: Conjunctivae normal. Pupils: Pupils are equal, round, and reactive to light. Neck: Thyroid: No thyroid mass, thyromegaly or thyroid tenderness. Cardiovascular: Rate and Rhythm: Normal rate and regular rhythm. Pulses: Normal pulses. Heart sounds: Normal heart sounds. No murmur heard. No friction rub. No gallop. Pulmonary: Effort: Pulmonary effort is normal. No respiratory distress. Breath sounds: Normal breath sounds. Chest: Chest wall: No tenderness. Abdominal: General: Abdomen is flat. Bowel sounds are normal. There is no distension. Palpations: Abdomen is soft. Tenderness: There is no abdominal tenderness. Musculoskeletal: General: No deformity. Normal range of motion. Cervical back: Normal range of motion and neck supple. Right lower leg: No edema. Left lower leg: No edema. Lymphadenopathy: Cervical: No cervical adenopathy. Skin: General: Skin is warm and dry. Coloration: Skin is not pale. Findings: No erythema or rash. Neurological: Mental Status: She is alert and oriented to person, place, and time. Deep Tendon Reflexes: Reflexes are normal and symmetric. Psychiatric: Mood and Affect: Mood normal. Behavior: Behavior normal. Thought Content: Thought content normal. Judgment: Judgment normal. Assessment/Plan: ORDERS PLACED THIS VISIT Orders Placed This Encounter Procedures Influenza IIV4 3yo or >,Fluzone Quad B12/Folate CBC and Differential Comprehensive Metabolic Panel Hemoglobin A1c Vitamin D, Total, 25-OH TSH with Reflex Free T4 Lipid Panel Thinprep Pap Smear Diagnoses and all orders for this visit: Routine general medical examination at a health care facility Patient Counseling: --Nutrition: Stressed importance of moderation in sodium/caffeine intake, saturated fat and cholesterol, caloric balance, sufficient intake of fresh fruits, vegetables, fiber, calcium, iron, and 1 mg of folate supplement per day (for females capable of ). --Exercise: Stressed the importance of regular exercise. --Substance Abuse: Discussed cessation/primary prevention of tobacco, alcohol, or other drug use; driving or other dangerous activities under the influence; availability of treatment for abuse. --Sexuality --Injury prevention --Dental health: Discussed importance of regular tooth brushing, flossing, and dental visits. --Immunizations reviewed. --Discussed benefits of screening colonoscopy. --After hours service discussed with patient Discussed the patient's BMI with them. The BMI is above average; BMI management plan is completed Routine Papanicolaou smear PAP today - Thinprep Pap Smear Anxiety Discussed her anxiety at length. I think getting involved with counseling is very beneficial, but we discussed trying different medicine and she is agreeable to this. Will start on Zoloft today and keep close eye on side effects - sertraline (ZOLOFT) 25 MG tablet; Take 1 (one) tablet (25 mg total) by mouth daily . Immunization due - Influenza IIV4 3yo or >,Fluzone Quad For any new medications prescribed today, patient was educated about indications for the medication, how to take the medication and potential side effects of the medications. Return in about 1 month (around 03/15/2023) for Medication management, Video Visit. documented in this encounter [facility] 10-28-2021 History of Presen t illness Narrative Images from the original note were not included. Video Visit [facility] MEDICAL OFFICE [facility] [id number] [facility] 10/28/2021 Genia Cohen CNP Provider Location: [place] Patient Location Help Desk Rep: None Patient Location: Patient's Home Patient: Laura Wiley Date of : 1995 (26 y.o. female) PCP: Gneia Cohen CNP Video Visit Consent Statement: I discussed risks, benefits and alternatives of a video visit telemedicine consultation with the patient (and any accompanying persons) including the risks that the patient s personal health details and medical records will be discussed over real-time, synchronous, interactive video/audio/telecommunication technology, the visit will not be recorded without the express consent of both the provider and the patient, and that there are inherent diagnostic limitations compared to [id number] evaluations. We elected to proceed with the video visit telemedicine consultation. Subjective: Patient ID: Laura Wiley is a 26 y.o. female. No chief complaint on file. HPI Patient on video today to discuss her anxiety and ADHD. She feels that her anxiety is better. However, she feels that she might have some concurrent ADHD. She tells me that when she was initially diagnosed, she was told to manage her anxiety first. This was through her therapist in the past. She is having issues with working at home. Having trouble with routine and completing tasks when she's at home. She is having trouble with her relationships as well. She feels that a lot of her issues are focus, holding conversations. She has issues with getting distracted. She did have her lexapro increased to 20 mg back in December. She tells me she felt numb. It is working with the extreme panic but not fixing her biggest problem. The following portions of the patient's history were reviewed and updated as appropriate: allergies, current medications, past family history, past medical history, past social history, past surgical history, and problem list. Past Medical History: Diagnosis Date Anxiety Depression GERD (gastroesophageal reflux disease) No Known Allergies Home Medication Instructions Prior to Surgery Accurate as of October 28, 2021 10:53 AM. Always use your most recent med list. Take last dose on Take the morning of surgery Comment(s) escitalopram oxalate 20 MG tablet Take 1 (one) tablet (20 mg total) by mouth daily . Commonly known as: LEXAPRO etonogestreL-ethinyl estradioL 0.12-0.015 mg/24 hr vaginal ring Insert vaginally and leave in place for 3 consecutive weeks, then remove for 1 week. . Commonly known as: NUVARING hydrOXYzine 50 MG capsule Take 1 (one) capsule (50 mg total) by mouth every 4 (four) hours as needed for anxiety . Commonly known as: VISTARIL Review of Systems Objective: There were no vitals taken for this visit. Physical Exam Constitutional: General: She is not in acute distress. Appearance: She is well-developed. She is not diaphoretic. Pulmonary: Effort: Pulmonary effort is normal. Skin: Coloration: Skin is not pale. Neurological: Mental Status: She is alert and oriented to person, place, and time. Psychiatric: Behavior: Behavior normal. Thought Content: Thought content normal. Judgment: Judgment normal. Assessment/Plan: ORDERS PLACED THIS VISIT Orders Placed This Encounter Procedures Ambulatory referral to Behavioral Health Diagnoses and all orders for this visit: Anxiety - Ambulatory referral to Behavioral Health; Future Attention deficit - Ambulatory referral to Behavioral Health; Future Patient would like to undergo psych evaluation to discuss if ADHD is a diagnosis and if not, how can she adjust her meds to better manage/control her focus and attention. Referral placed today No changes to lexapro today F/u after consult For any new medications prescribed today, patient was educated about indications for the medication, how to take the medication and potential side effects of the medications. Return if symptoms worsen or fail to improve. documented in this encounter [facility] 08-04-2021 History of Presen t illness Narrative Images from the original note were not included. Subjective: Patient ID: Laura Wiley is a 25 y.o. female. Chief Complaint Patient presents with Joint Pain I have been have joint pain that has gotten worse. My hips and knee will ache after any activity. It's getting worse over the past three months and struggling to be active due to pain. HPI Patient in office today for right knee pain. Has been getting worse over the past 3 months, leading to hip and ankle pain as well. Pain has been so severe she is having a hard time walking her dog. She did have a fall when she went skiing with a few days of severe soreness all over her body around the time this started. She also felt like a rubber band snapped in her knee. There is pain with walking, she's been achy since coming into the office. The pain will wake her up at night at times when she does a lot of walking. There will be throbbing. She will take tylenol with minimal improvement in her symptoms. She does feel unsteady on her feet and unstable with her right knee Also needing refills on her lexapro, doing well on her current dose. The following portions of the patient's history were reviewed and updated as appropriate: allergies, current medications, past family history, past medical history, past social history, past surgical history, and problem list. Past Medical History: Diagnosis Date Anxiety Depression GERD (gastroesophageal reflux disease) No Known Allergies Home Medication Instructions Prior to Surgery Accurate as of August 04, 2021 10:30 AM. Always use your most recent med list. Take last dose on Take the morning of surgery Comment(s) escitalopram oxalate 20 MG tablet Take 1 (one) tablet (20 mg total) by mouth daily . Commonly known as: LEXAPRO etonogestreL-ethinyl estradioL 0.12-0.015 mg/24 hr vaginal ring Insert vaginally and leave in place for 3 consecutive weeks, then remove for 1 week. . Commonly known as: NUVARING hydrOXYzine 50 MG capsule Take 1 (one) capsule (50 mg total) by mouth every 4 (four) hours as needed for anxiety . Commonly known as: VISTARIL Where to Get Your Medications These medications were sent to [facility]/pharmacy #[id number] - [facility] [address] [facility] [address], [facility] [id number] escitalopram oxalate 20 MG tablet Review of Systems Objective: BP 117/76 (BP Location: Left arm, Patient Position: Sitting, BP Cuff Size: Adult) Pulse 67 Temp 97.7 F (36.5 C) (Skin) Resp 18 Ht 5' 8 Wt 83.7 kg (184 lb 8 oz) LMP 07/30/2021 SpO2 96% BMI 28.05 kg/m Physical Exam Vitals reviewed. Constitutional: General: She is not in acute distress. Appearance: She is well-developed. HENT: Head: Normocephalic and atraumatic. Pulmonary: Effort: Pulmonary effort is normal. No respiratory distress. Musculoskeletal: General: Normal range of motion. Cervical back: Neck supple. Right knee: Crepitus present. No swelling, effusion, erythema, ecchymosis or lacerations. Normal range of motion. Tenderness present over the patellar tendon. Abnormal meniscus. Normal alignment and normal patellar mobility. Instability Tests: Anterior drawer test negative. Posterior drawer test negative. Anterior Miriam test negative. Medial Ellie test negative and lateral Ellie test negative. Left knee: No swelling, effusion, erythema, ecchymosis, lacerations or crepitus. Normal range of motion. No tenderness. No patellar tendon tenderness. Normal alignment, normal meniscus and normal patellar mobility. Instability Tests: Posterior drawer test negative. Anterior Miriam test negative. Medial Ellie test negative and lateral Ellie test negative. Skin: General: Skin is warm and dry. Coloration: Skin is not pale. Findings: No erythema or rash. Neurological: Mental Status: She is alert and oriented to person, place, and time. Psychiatric: Behavior: Behavior normal. Assessment/Plan: ORDERS PLACED THIS VISIT Orders Placed This Encounter Procedures XR Knee Right 2 Views (Standard) MR Knee Right Without Contrast Ambulatory referral to Orthopedic Surgery Diagnoses and all orders for this visit: Acute pain of right knee - XR Knee Right 2 Views (Standard); Future - MR Knee Right Without Contrast; Future XR ordered today (she'd like to get at outside facility). But ultimately, with her description, I think she needs an mri. Ordered this today also along with ortho referral Anxiety - escitalopram oxalate (LEXAPRO) 20 MG tablet; Take 1 (one) tablet (20 mg total) by mouth daily . Refills provided. Doing well. Continue on current regimen/dosing For any new medications prescribed today, patient was educated about indications for the medication, how to take the medication and potential side effects of the medications. Return if symptoms worsen or fail to improve. documented in this encounter [facility] 01-19-2021 History of Presen t illness Narrative Subjective Patient ID: Laura Wiley is a 25 y.o. female. Pt is here for follow-up regarding her anxiety. She notes that it is greatly improved w/ lexapro. However, she is still very anxious in social settings, very anxious about anxious about getting behind at work. She feels like she almost shuts down when gets this feeling of being behind. She has been working from home and she is reluctant to go out of the house. She states that this symptom is getting worse. She is worried about going back to work. She is seeing a counselor but has not really had often plans to change counseling. She has a couple of new contacts that she has been recommended to and plans to call them today to set up appointments. She denies depressed mood or suicidal thoughts. She is interested in increasing the dose of Lexapro as she feels it is helpful. The following portions of the patient's history were reviewed and updated as appropriate: allergies, current medications, past family history, past medical history, past social history, past surgical history and problem list. Review of Systems Objective Physical Exam Constitutional: General: She is not in acute distress. Appearance: Normal appearance. She is normal weight. She is not toxic-appearing. HENT: Right Ear: External ear normal. Left Ear: External ear normal. Nose: Nose normal. Mouth/Throat: Mouth: Mucous membranes are moist. Eyes: General: No scleral icterus. Conjunctiva/sclera: Conjunctivae normal. Pulmonary: Effort: Pulmonary effort is normal. No respiratory distress. Breath sounds: No wheezing. Musculoskeletal: Cervical back: Normal range of motion. Skin: Capillary Refill: Capillary refill takes less than 2 seconds. Findings: No rash. Neurological: General: No focal deficit present. Mental Status: She is alert. Psychiatric: Mood and Affect: Mood normal. Behavior: Behavior normal. Thought Content: Thought content normal. Judgment: Judgment normal. Assessment/Plan: Problem List Items Addressed This Visit Other Anxiety Relevant Medications escitalopram oxalate (LEXAPRO) 20 MG tablet The patient will follow up here in 1 to 2 months for recheck of her mood. We will increase her Lexapro. She will call immediately with any worsening of her mood or other side effects. She is going to call make contact with a couple of new counselors and see if she can find some of that she gets along with better. She will call us with any questions or concerns in the meantime. documented in this encounter [facility] 10-20-2020 History of Presen t illness Narrative [facility] assisting [facility] reached out to Berkley regarding [facility] referral and to follow up on her progress in connecting with resources previouslu provided by Isabela Landis. No answer, left message requesting call back. Follow up scheduled for 2-3 week(s). documented in this encounter [facility] 09-29-2020 History of Presen t illness Narrative Over the last 2 weeks, how often have you been bothered by any of the following problems? Little interest or pleasure in doing things More than half the days Feeling down, depressed, or hopeless More than half the days PHQ-2 Total Score 4 Trouble falling or staying asleep, or sleeping too much More than half the days Feeling tired or having little energy More than half the days Poor appetite or overeating Several days Feeling bad about yourself - or that you are a failure or have let yourself or your family down More than half the days Trouble concentrating on things, such as reading the newspaper or watching television More than half the days Moving or speaking so slowly that other people could have noticed. Or the opposite - being fidgety or restless that you have been moving around a lot more than usual Several days Thoughts that you would be better off , or hurting yourself in some way Not at all PHQ-9 Total Score 14 If you checked off any problems, how difficult have these problems made it for you to do your work, take care of things at home, or get along with other people? Very difficult Subjective: Patient ID: Laura Wiley is a 24 y.o. female. Chief Complaint Patient presents with Establish Care HPI Pt here to establish care. Last saw a PCP approx. 5 years ago, was going to provider at employer's office prior to [place]. Was on Lexapro in the past with no side effects, has been off for a little over a year. Desires to restart today. Having times of panic approx. 3 times a week, lasting about 15 minutes. Desires to start counseling. Feels she is struggling with depression as well. Last pap smear was approx. 1 year ago and was normal. Has irregular menses, LMP was in July. Currently SA and does not use condoms. Has been on Nuvaring in the past and liked it. Declines STI testing today. Having cramping today x 24 hours and slight dysuria. Denies discharge or concerns for STI. Works out 2-3 days a week. Tries to eat healthy. Denies tobacco use. Smokes marijuana and drinks occasionally. The following portions of the patient's history were reviewed and updated as appropriate: allergies, current medications, past family history, past medical history, past social history, past surgical history and problem list. Past Medical History: Diagnosis Date Anxiety GERD (gastroesophageal reflux disease) No Known Allergies Laura Wiley Home Medication Instructions Prior to Surgery NICOLE: Printed on:09/29/20 7727 Medication Information Take last dose on Take the morning of surgery Comment(s) escitalopram oxalate (LEXAPRO) 10 MG tablet Take 1 (one) tablet (10 mg total) by mouth daily . etonogestreL-ethinyl estradioL (NUVARING) 0.12-0.015 mg/24 hr vaginal ring Insert vaginally and leave in place for 3 consecutive weeks, then remove for 1 week. . Review of Systems Constitutional: Negative for appetite change and unexpected weight change. HENT: Negative for ear pain, rhinorrhea and sore throat. Eyes: Negative for itching. Respiratory: Negative for chest tightness and shortness of breath. Cardiovascular: Negative for chest pain and leg swelling. Gastrointestinal: Negative for abdominal pain, constipation, diarrhea, nausea and vomiting. Genitourinary: Positive for dyspareunia, dysuria and menstrual problem. Negative for frequency, urgency, vaginal bleeding and vaginal discharge. Musculoskeletal: Positive for back pain. Negative for arthralgias. Skin: Negative for color change. Neurological: Negative for headaches. Psychiatric/Behavioral: Positive for dysphoric mood. The patient is nervous/anxious. Objective: BP 120/74 (BP Location: Left arm, Patient Position: Sitting, BP Cuff Size: Adult) Pulse 74 Temp 97.8 F (36.6 C) (Skin) Resp 18 Ht 5' 8 Wt 80.2 kg (176 lb 12.8 oz) LMP 08/08/2020 Comment: Irregular Periods SpO2 96% BMI 26.88 kg/m Physical Exam Constitutional: Appearance: Normal appearance. HENT: Head: Normocephalic and atraumatic. Cardiovascular: Rate and Rhythm: Normal rate and regular rhythm. Pulses: Normal pulses. Heart sounds: Normal heart sounds. Pulmonary: Effort: Pulmonary effort is normal. Breath sounds: Normal breath sounds. Abdominal: General: Abdomen is flat. Palpations: Abdomen is soft. Tenderness: There is abdominal tenderness (suprapubic). Musculoskeletal: General: Normal range of motion. Cervical back: Normal range of motion and neck supple. Skin: General: Skin is warm and dry. Neurological: Mental Status: She is alert and oriented to person, place, and time. Psychiatric: Mood and Affect: Mood normal. Behavior: Behavior normal. Thought Content: Thought content normal. Judgment: Judgment normal. Assessment/Plan: ORDERS PLACED THIS VISIT Orders Placed This Encounter Procedures HM PAP SMEAR B12/Folate Vitamin D, Total, 25-OH CBC and Differential Comprehensive Metabolic Panel TSH with Reflex Free T4 Ambulatory Ref to [facility] Programmer Analyst Consultant POC Urinalysis Dipstick POC , Urine Diagnoses and all orders for this visit: Anxiety - escitalopram oxalate (LEXAPRO) 10 MG tablet; Take 1 (one) tablet (10 mg total) by mouth daily . - Ambulatory Ref to [facility] Programmer Analyst Consultant; Future - B12/Folate; Future - Vitamin D, Total, 25-OH; Future - CBC and Differential; Future - Comprehensive Metabolic Panel; Future - TSH with Reflex Free T4; Future Irregular periods - B12/Folate; Future - Vitamin D, Total, 25-OH; Future - CBC and Differential; Future - Comprehensive Metabolic Panel; Future - TSH with Reflex Free T4; Future Missed period - POC , Urine - B12/Folate; Future - Vitamin D, Total, 25-OH; Future - CBC and Differential; Future - Comprehensive Metabolic Panel; Future - TSH with Reflex Free T4; Future Dysuria - POC Urinalysis Dipstick - B12/Folate; Future - Vitamin D, Total, 25-OH; Future - CBC and Differential; Future - Comprehensive Metabolic Panel; Future - TSH with Reflex Free T4; Future Encounter for counseling regarding contraception - etonogestreL-ethinyl estradioL (NUVARING) 0.12-0.015 mg/24 hr vaginal ring; Insert vaginally and leave in place for 3 consecutive weeks, then remove for 1 week. . UPT was negative today, started on Nuvaring as control. UA was negative today, to follow up if sx worsen or persist. Labs obtained today or baseline, will follow up pending results. Started on Lexapro 10mg today to assist with anxiety management, to follow up in 4 weeks to determine if titration is needed. For any new medications prescribed today, patient was educated about indications for the medication, how to take the medication and potential side effects of the medications. Return in about 6 months (around 03/31/2021) for chronic disease management, Medication management. 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 Pt states ok to have HOG SLAUGHTERER student present. documented in this encounter [facility] Evaluation note Diagnosis Anxiety- Primary Anxiety state, unspecified Irregular periods Missed period Dysuria Encounter for [facility] regarding [facility] Anxiety Anxiety state, unspecified [facility] Diagnosis Acute pain of right knee- Primary Anxiety Anxiety state, unspecified [facility] Diagnosis Strain of right patellar tendon, subsequent encounter- Primary [facility] Diagnosis Anxiety- Primary Anxiety state, unspecified Attention deficit [facility] Diagnosis Routine general medical examination at a health care facility- Primary Routine Papanicolaou smear Screening for malignant neoplasm of the cervix Anxiety Anxiety state, unspecified Immunization due [facility] Diagnosis Anxiety- Primary Anxiety state, unspecified [facility] Diagnosis Anxiety Anxiety state, unspecified [facility] Diagnosis Anxiety Anxiety state, unspecified [facility] Diagnosis Anxiety Anxiety state, unspecified [facility] Diagnosis Anxiety Anxiety state, unspecified [facility] Diagnosis Anxiety Anxiety state, unspecified [facility] Diagnosis Generalized abdominal pain Abdominal pain, generalized documented in this encounter [facility] Work Phone: Evaluation note* Diagnosis Anxiety Anxiety state, unspecified [facility] Diagnosis Routine general medical examination at a health care facility- Primary Anxiety Anxiety state, unspecified Fatigue, unspecified type Menorrhagia with regular cycle Vitamin D deficiency Screening for diabetes mellitus [facility] Instruction Text No instruction information i s available. [facility] Urgent Care Instructions * Patient Instructions - Kati Reyes MD - 01/25/2017 11:08 AM EDT Go to the ER if worsening. in this encounter* Patient Instructions - Luis Ramos PA-C - 02/24/2017 10:40 AM EDT Take antibiotics as directed. It is important to finish all the antibiotics even if you start to feel better. Pyridium as prescribed for symptom relief. Follow with PCP in 7-10 days if no improvement, sooner if symptoms worsen. Urinary Tract Infection in Women: Care Instructions Your Care Instructions A urinary tract infection, or UTI, is a general term for an infection anywhere between the kidneys and the urethra (where urine comes out). Most UTIs are bladder infections. They often cause pain or burning when you urinate. UTIs are caused by bacteria and can be cured with antibiotics. Be sure to complete your treatment so that the infection goes away. Follow-up care is a damon part of your treatment and safety. Be sure to make and go to all appointments, and call your doctor if you are having problems. It's also a good idea to know your test resultsand keep a list of the medicines you take. How can you care for yourself at home? Take your antibiotics as directed. Do not stop taking them just because you feel better. You need to take the full course of antibiotics. Drink extra water and other fluids for the next day or two. This may help wash out the bacteria that are causing the infection. (If you have kidney, heart, or liver disease and have to limit fluids, talk with your doctor before you increase your fluid intake.) Avoid drinks that are carbonated or have caffeine. They can irritate the bladder. Urinate often. Try to empty your bladder each time. To relieve pain, take a hot bath or lay a heating pad set on low over your lower belly or genital area. Never go to sleep with a heating pad in place. To prevent UTIs Drink plenty of water each day. This helps you urinate often, which clears bacteria from your system. (If you have kidney, heart, or liver disease and have to limit fluids, talk with your doctor before you increase your fluid intake.) Urinate when you need to. Urinate right after you have sex. Change sanitary pads often. Avoid douches, bubble baths, feminine hygiene sprays, and other feminine hygiene products that havedeodorants. After going to the bathroom, wipe from front to back. When should you call for help? Call your doctor now or seek immediate medical care if: Symptoms such as fever, chills, nausea, or vomiting get worse or appear for the first time. You have new pain in your back just below your rib cage. This is called flank pain. There is new blood or pus in your urine. You have any problems with your antibiotic medicine. Watch closely for changes in your health, and be sure to contact your doctor if: You are not getting better after taking an antibiotic for 2 days. Your symptoms go away but then come back. Where can you learn more? Log into your personal health record on [email or web address] and enter K848 in the Education box to learn more about Urinary Tract Infection in Women: Care Instructions. Current as of: March 27, 2016 Content Version: 11.2 6344-3571 [employer]. Care instructions adapted under license by your healthcare professional. If you have questions about a medical condition or this instruction, always ask your healthcare professional. [employer] disclaims any warranty or liability for your use of this information. in this encounter Assessments Diagnosis Acute cystitis without hemat uria - Primary Diagnosis Urinary tract infection with out hematuria, site unspecified - Primary Summary Purpose Family History No Family History Records FoundNo Family History Records FoundNo Family History Records FoundNo Family History Records FoundNo Family History Records FoundNo Family History Records FoundNo Family History Records FoundNo Family History Records Found Advance Directives No Advanced Directives Records FoundDocuments on File Type Date Recorded Patient [employer] Guide Expl anation Advance Directives and Livin g Will 03/11/2018 7:35 PM Documents on File Type Date Recorded Patient [employer] Guide Expl anation Advance Directives and Livin g Will 03/11/2018 7:35 PM Documents on File Type Date Recorded Patient [employer] Guide Expl anation Advance Directives and Livin g Will 01/19/2021 7:35 PM Documents on File Type Date Recorded Patient Mountain Guide Expl anation Advance Directives and Livin g Will 01/19/2021 7:35 PM Documents on File Type Date Recorded Patient Mountain Guide Expl anation Advance Directives and Livin g Will 08/15/2021 5:51 PM Reason for Referral Status Reason Specialty Diagnoses / Procedures Referred By Contact Referred To Contact Authorized Behavorist (Outpatient Social Work) Diagnoses Anxiety Genia Cohen, ROSARIO [address] [facility] [address] [place] [phone] Specialty Diagnoses / Procedures Referred By Contac t Referred To Contact Orthopedic Surgery Diagnoses Acute pain of right knee Genia Cohen, ROSARIO [address] [facility] [address] [place] [phone] One, Orthopedic Referral ID Status Reason Start Date Expiration Date V isits Requested Visits Authorized [id number] Authorized 08/04/2021 08/04/2022 1 1 Specialty Diagnoses / Procedures Referred By Contac t Referred To Contact Radiology Diagnoses Acute pain of right knee Procedures MR Knee Right Without Contrast Genia Cohen, ROSARIO [address] [place] [phone] Referral ID Status Reason Start Date Expiration Date V isits Requested Visits Authorized [id number] New Request 08/04/2021 08/04/2022 1 1 Specialty Diagnoses / Procedures Referred By Contac t Referred To Contact Behavioral Health Diagnoses Anxiety Attention deficit Genia Cohen, ROSARIO [address] [facility] [address] [place] [phone] Richard Cantu MD [address] [address] Referral ID Status Reason Start Date Expiration Date V isits Requested Visits Authorized [id number] Pending Review 10/28/2021 10/28/2022 1 1 Specialty Diagnoses / Procedures Referred By Contac t Referred To Contact Radiology Diagnoses Generalized abdominal pain Procedures Urgent Care Niraj Meléndez MD [address] [facility], [address] [place] [address] Referral ID Status Reason Start Date Expiration Date Visits Requested Visits Authorized [id number] Authorized Perform Procedure 01/01/2024 12/31/2024 1 1 Additional Source Comments INFORMATION SOURCE (unrecogn ized section and content) DATE CREATED AUTHOR 10/18/2017 [facility] DATE CREATED AUTHOR AUTHOR'S ORGANIZ ATION 10/23/2017 [facility] DATE CREATED AUTHOR AUTHOR'S ORGANIZ ATION 05/01/2022 [facility] DATE CREATED AUTHOR AUTHOR'S ORGANIZ ATION 02/17/2023 [facility] DATE CREATED AUTHOR AUTHOR'S ORGANIZ ATION 01/03/2024 [facility] DATE CREATED AUTHOR AUTHOR'S ORGANIZ ATION 11/16/2024 [facility] DATE CREATED AUTHOR AUTHOR'S ORGANIZ ATION 11/16/2024 [facility] DATE CREATED AUTHOR AUTHOR'S ORGANIZ ATION 02/12/2025 [facility] Reason for Visit (unrecogniz ed section and content) Reason Comments Establish Care Reason Onset Date Comments Care coordination - P 10/20/2020 Reason Comments Follow-up Reason Comments Joint Pain I have been have rubi int pain that has gotten worse. My hips and knee will ache after any activity. It's getting worse over the past three months and struggling to be active due to pain. Reason Comments Annual Exam Reason Comments Medication Management Reason Onset Date Comments Medication Refill 06/12/2023 Reason Onset Date Comments Medication Refill 07/30/2023 Reason Onset Date Comments Medication Refill 08/06/2023 Specialty Diagnoses / Procedures Referred By Contac t Referred To Contact Radiology Diagnoses Generalized abdominal pain Procedures Urgent Care Niraj Meléndez MD [address] [place] [address], [address] [place] [address] Referral ID Status Reason Start Date Expiration Date Visits Requested Visits Authorized [id number] Authorized Perform Procedure 01/01/2024 12/31/2024 1 1 Reason Onset Date Comments Medication Refill 10/13/2024 Reason Comments Gap Closure (Health Maintenance) HIV Scr eening Never doneHepatitis C Screening Never doneTetanus: Every 10yrs due on 02/26/2018Depression Screening/Follow-Up (PHQ-2/9) due on 2COVID-19 Vaccine(2023- season) due on 12/30/2023Wellness Visit due on 02/13/2024 Annual Exam Care Teams (unrecognized sec tion and content) Vascular Ultrasound Technician Relationship Specialty Start Date End Date Genia Cohen, MATERIALS BRANCH CHIEF [address] [place] [address] PCP - General Nurse Practitioner 09/29/20 Vascular Ultrasound Technician Relationship Specialty Start Date End Date Genia Cohen, MATERIALS BRANCH CHIEF [address] [place] [address] PCP - General Nurse Practitioner 09/29/20 Joaquin Dick, DO [address] [place] [address] PCP - PRIYA Attributed Provider - [employer] 05/28/17 04/29/50 Vascular Ultrasound Technician Relationship Specialty Start Date End Date Genia Cohen, MATERIALS BRANCH CHIEF [address] [facility] [address] [place] [address] PCP - General Nurse Practitioner 09/29/20 Joaquin Dick, DO [address] [facility] [address] [place] [address] PCP - PRIYA Attributed Provider - [employer] 05/28/17 04/29/50 Vascular Ultrasound Technician Relationship Specialty Start Date End Date Genia Cohen, MATERIALS BRANCH CHIEF [address] [facility] [address] [place] [address] PCP - General Nurse Practitioner 09/29/20 Richard Barone, DO [address] [place] [address] PCP - PRIYA Attributed Provider - [employer] 05/28/17 04/29/50 Vascular Ultrasound Technician Relationship Specialty Start Date End Date Genia CohenROSARIO [address] [place] [address] PCP - General Nurse Practitioner 09/29/20 Vascular Ultrasound Technician Relationship Specialty Start Date End Date Genia CohenROSARIO [address] [place] [address] PCP - General Nurse Practitioner 09/29/20 Vascular Ultrasound Technician Relationship Specialty Start Date End Date Genia CohenROSARIO [address] [place] [address] PCP - General Nurse Practitioner 09/29/20 CohenGenia CNP [address] [place] [address] PCP - PRIYA Attributed Provider - [facility] 09/28/22 04/29/50 Vascular Ultrasound Technician Relationship Specialty Start Date End Date Genia CohenROSARIO [address] [place] [address] PCP - General Nurse Practitioner 09/29/20 Cohen Genia ROSARIO Iverson [address] [place] [address] PCP - PRIYA Attributed Provider - [facility] 09/28/22 04/29/50 Vascular Ultrasound Technician Relationship Specialty Start Date End Date Genia CohenROSARIO [address] [place] [address] PCP - General Nurse Practitioner 09/29/20 Genia Cohen [employer] [address] [facility] [address] [place] [address] PCP - PRIYA Attributed Provider - [facility] 09/28/22 04/29/50 Vascular Ultrasound Technician Relationship Specialty Start Date End Date Genia Cohen CNP [address] [facility] [address] [place] [address] PCP - General Nurse Practitioner 09/29/20 Genia CohenROSARIO [address] [facility] [address] [place] [address] PCP - PRIYA Attributed Provider - [facility] 09/28/22 04/29/50 Vascular Ultrasound Technician Relationship Specialty Start Date End Date Genia CohenROSARIO [address] [facility] [address] [place] [address] PCP - General Nurse Practitioner 09/29/20 Vascular Ultrasound Technician Relationship Specialty Start Date End Date Genia Cohen [employer] [address] [facility] [address] [place] [address] PCP - General Nurse Practitioner 09/29/20 Vascular Ultrasound Technician Relationship Specialty Start Date End Date Genia Cohen ROSARIO [address] [facility] [address] [place] [address] PCP - General Nurse Practitioner 09/29/20 FOR RECORDS PERTAINING TO PATIENTS WHO ARE OR HAVE BEEN ENROLLED IN A CHEMICAL DEPENDENCY/SUBSTANCEABUSE PROGRAM, SOME INFORMATION MAY BE OMITTED. This clinical summary was aggregated from multiple sources. Caution should be exercised in using it in the provision of clinical care. This summary normalizes information from multiple sources, and as a consequence, information in this document may materially change the coding, format and clinical context of patient data. In addition, data may be omitted in some cases. CLINICAL DECISIONS SHOULD BE BASED ON THE PRIMARY CLINICAL RECORDS. [facility]. provides no warranty or guarantee of the accuracy or completeness of information in this document.
--- OUTSIDE RECORDS SUMMARY | 2025-02-17 18:01 | XMS RPT_ITS | CCD ---
Author Organization [facility] Care Team Providers Care Drama Director Name Role Phone rOtiz Sabillon Unavailable [phone] ML ACEVEDO Unavailable Unavailable ML ACEVEDO Unavailable Unavailable KATI REYES Unavailable Unavailable ORTIZ SABILLON Unavailable Unavailable ORTIZ SABILLON Unavailable Unavailable LUIS RAMOS Unavailable Unavailable Cohen GLASS FITTER, Genialissette Iverson Primary Care Prov ider Cohen GLASS FITTER, Genialissette Candelariae Primary Care Prov ider Joaquin Dick DO Unavailable Cohen GLASS FITTER, Genialissette Iverson Primary Care Prov ider Richard Barone DO Unavailable [phone] JORDYN LAINEZ Attending Unavailable GENIA COHENE Primary Care Unava ilable GENIA COHEN Referring Unava ilable GENIA COHEN Attending Unava ilable GENIA COHEN Primary Care Unava ilable Cohen GLASS FITTER, Genia Zayra Primary Care Prov ider GENIA COHEN Primary Care Unava ilable Cohen GLASS FITTER, Genia Zayra Primary Care Prov ider Cohen ROSARIO, Genia Zayra Unavailable NIRAJ KENNEDY Referring Unavailable Unavailable Primary Care Provider UnavailNiraj Cox Unavailable Karen Killian Unavailable GENIA COHEN Attending GENIA Espinosa Primary Care Temi Hernandez Attending Unavailable Temi Mendez Referring Unavailable [facility] Doctor, Out of Primary Care Unavailable Temi Mendez Attending Unavailable Allergies Allergy Classification Reported Allergen(s) Allergy Type Date of Onset Reaction(s) Facility (1 source) ALLERGIES NOT ON FILE; Translations: [ALLERGIES NOT ON FILE] Propensity to adverse reactions (disorder) [facility] Medications Current Medications Medication Drug Class(es) Dates [...] 01/19/2021 Discontinued (Reorder) 21 day ethinyl estradiol 0.592294 mg/hr / etonogestrel 0.005 mg/hr vaginal system [...] Test Name Value Interpretation Reference Range Facility 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 Office Visit Reporton 02-09-2025 Weed Controller Office Visit Report [facility] [address], [address] [place] [address] OFFICE VISIT Date of Service: 02/09/25 MR#: [id number] Acct: [id number] Name: LAURA EAGLE Rep #: [id number] : 1995 Provider: SANTHOSH Marquez Age/Sex: 29/F Location: [facility] Status: Signed Intake Vital Signs 02/09/25 09:34 Height 5 ft 8 in Weight: 223 lb BMI 33.9 BP 123/85 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 Normal [facility] B12/Folateon 11-13-2024 Cobalamin (Vitamin B12) [Mass/Vol] 433 pg/mL 200 - 1100 pg/mL [facility] Folate [Mass/Vol] 20.9 ng/mL [facility] Comment on above: Reference Range Low: <3.4 Borderline: 3.4-5.4 Normal: >5.4 BASIC METABOLIC PANEL WITH A NION GAPon 11-13-2024 BUN/CREATININE RATIO SEE NOTE: Normal 6-22 [facility] Comment on above: Result Comment: Not Reported: BUN and Creatinine are within reference range. Performed By: #### 1 4852, 07156, 66635, 82601, 496, 6399, 5616 #### [facility] [address], [address] [place] [address] Cement Gun Operator: Merlin Rao MD Calcium [Mass/Vol] 9.6 mg/dL Normal 8.6-10.2 [facility] Comment on above: Performed By: #### 1 4852, 69773, 51065, 27192, 496, 6399, 5616 #### [facility] [address], [address] [place] [address] Cement Gun Operator: Merlin Rao MD Chloride [Moles/Vol] 103 mmol/L Normal 98-110 [facility] Comment on above: Performed By: #### 1 4852, 15234, 22040, 69548, 496, 6399, 5616 #### [facility] [address], [address] [place] [address] Cement Gun Operator: Merlin Rao MD CO2 [Moles/Vol] 23 mmol/L Normal 20-32 [facility] Comment on above: Performed By: #### 1 4852, 03612, 36593, 93053, 496, 6399, 5616 #### [facility] [place] [address] Cement Gun Operator: Merlin Rao MD Creatinine [Mass/Vol] 0.66 mg/dL Normal 0.50-0.97 [facility] Comment on above: Performed By: #### 1 4852, 52524, 60912, 34758, 496, 6399, 5616 #### [facility] [place] [address] Cement Gun Operator: Merlin Rao MD ELECTROLYTE BALANCE 12 mmol/L (calc) Normal 7-17 [facility] Comment on above: Performed By: #### 1 4852, 04704, 79780, 43137, 496, 6399, 5616 #### [facility] [place] [address] Cement Gun Operator: Merlin Rao MD GFR/1.73 sq M.predicted among non-blacks MDRD (S/P/Bld) [Vol rate/Area] 121 mL/min/{1.73_m2} Normal > OR = 60 [facility] Comment on above: Performed By: #### 1 4852, 39831, 69052, 14222, 496, 6399, 5616 #### [facility] [place] [address] Cement Gun Operator: Merlin Rao MD Glucose [Mass/Vol] 91 mg/dL Normal 65-99 [facility] Comment on above: Result Comment: Fasting reference interval Performed By: #### 1 4852, 76827, 89627, 81601, 496, 6399, 5616 #### [facility] [place] [address] Cement Gun Operator: Merlin Rao MD Potassium [Moles/Vol] 4.3 mmol/L Normal 3.5-5.3 [facility] Comment on above: Performed By: #### 1 4852, 21014, 14670, 25057, 496, 6399, 5616 #### [facility] [address], [address] Cement Gun Operator: Merlin Rao MD Sodium [Moles/Vol] 138 mmol/L Normal 135-146 [facility] Comment on above: Performed By: #### 1 4852, 57630, 22428, 94616, 496, 6399, 5616 #### [facility] [address], [address] [place] [address] Cement Gun Operator: Merlin Rao MD Urea nitrogen [Mass/Vol] 14 mg/dL Normal 7-25 [facility] Comment on above: Performed By: #### 1 4852, 59207, 81726, 98741, 496, 6399, 5616 #### [facility] [address], [address] [place] [address] Cement Gun Operator: Merlin Rao MD Basic metabolic 2000 panelon 11-13-2024 Anion gap [Moles/Vol] 12 mmol/L [facility] Calcium [Mass/Vol] 9.6 mg/dL 8.6 - 10. 2 mg/dL [facility] Chloride [Moles/Vol] 103 mmol/L 98 - 110 mmol/L [facility] CO2 [Moles/Vol] 23 mmol/L 20 - 32 mmol/L [facility] Creatinine [Mass/Vol] 0.66 mg/dL 0.50 - 0.97 mg/dL [facility] GFR/1.73 sq M.predicted among non-blacks MDRD (S/P/Bld) [Vol rate/Area] 121 mL/min/{1.73_m2} > OR = 60 mL/min/1.73m2 [facility] Glucose [Mass/Vol] 91 mg/dL 65 - 99 mg/dL [facility] Comment on above: Fasting reference interval Potassium [Moles/Vol] 4.3 mmol/L 3.5 - 5.3 mmol/L [facility] Sodium [Moles/Vol] 138 mmol/L 135 - 146 mmol/L [facility] Urea nitrogen [Mass/Vol] 14 mg/dL 7 - 25 mg/dL [facility] Urea nitrogen/Creatinine [Mass ratio] SEE NOTE: [facility] Comment on above: Not Reported: BUN an d Creatinine are within reference range. CBC (INCLUDES DIFF/PLT)on Basophils (Bld) [#/Vol] 0.054 10*3/uL Normal 0-200 [facility] Comment on above: Performed By: #### 1 4852, 69087, 63009, 77486, 496, 6399, 5616 #### [facility] of [address], [address] [place] [address] Cement Gun Operator: Merlin Rao MD Basophils/100 WBC (Bld) 0.6 % Normal [facility] Comment on above: Performed By: #### 1 4852, 42293, 72289, 79344, 496, 6399, 5616 #### [facility] [place] [address] Cement Gun Operator: Merlin Rao MD Eosinophils (Bld) [#/Vol] 0.162 10*3/uL Normal 15-500 [facility] Comment on above: Performed By: #### 1 4852, 26464, 19832, 32958, 496, 6399, 5616 #### [facility] [place] [address] Cement Gun Operator: Merlin Rao MD Eosinophils/100 WBC (Bld) 1.8 % Normal [facility] Comment on above: Performed By: #### 1 4852, 64441, 44915, 85793, 496, 6399, 5616 #### [facility] [place] [address] Cement Gun Operator: Merlin Rao MD Erythrocyte distribution width (RBC) [Ratio] 13.1 % Normal 11.0-15.0 [facility] Comment on above: Performed By: #### 1 4852, 02315, 94191, 74263, 496, 6399, 5616 #### [facility] of [place] [address] Cement Gun Operator: Merlin Rao MD Hematocrit (Bld) [Volume fraction] 43.7 % Normal 35.0-45.0 [facility] Comment on above: Performed By: #### 1 4852, 42549, 84931, 89418, 496, 6399, 5616 #### [facility] [place] [address] Cement Gun Operator: Merlin Rao MD Hemoglobin (Bld) [Mass/Vol] 14.3 g/dL Normal 11.7-15.5 [facility] Comment on above: Performed By: #### 1 4852, 35043, 01972, 15822, 496, 6399, 5616 #### [facility] [place] [address] Cement Gun Operator: Merlin Rao MD Lymphocytes (Bld) [#/Vol] 2.907 10*3/uL Normal 850-3900 [facility] Comment on above: Performed By: #### 1 4852, 52025, 03395, 25060, 496, 6399, 5616 #### [facility] [place] [address] Cement Gun Operator: Merlin Rao MD Lymphocytes/100 WBC (Bld) 32.3 % Normal [facility] Comment on above: Performed By: #### 1 4852, 48500, 32961, 98233, 496, 6399, 5616 #### [facility] [place] [address] Cement Gun Operator: Merlin Rao MD MCH (RBC) [Entitic mass] 29.4 pg Normal 27.0-33.0 [facility] Comment on above: Performed By: #### 1 4852, 72015, 81609, 15802, 496, 6399, 5616 #### [facility] of [place] [address] Cement Gun Operator: Merlin Rao MD MCHC (RBC) [Mass/Vol] 32.7 [...] clinical condition. Performed By: #### 1 4852, 18159, 11124, 64946, 496, 6399, 5616 #### [facility] of [address], [address] [place] [address] Cement Gun Operator: Merlin Rao MD MCV (RBC) [Entitic vol] 89.9 fL Normal 80.0-100.0 [facility] Comment on above: Performed By: #### 1 4852, 92630, 79267, 11194, 496, 6399, 5616 #### [facility] of [place] [address] Cement Gun Operator: Merlin Rao MD Monocytes (Bld) [#/Vol] 0.774 10*3/uL Normal 200-950 [facility] Comment on above: Performed By: #### 1 4852, 15656, 98345, 16618, 496, 6399, 5616 #### [facility] of [place] [address] Cement Gun Operator: Merlin Rao MD Monocytes/100 WBC (Bld) 8.6 % Normal [facility] Comment on above: Performed By: #### 1 4852, 95506, 85391, 11751, 496, 6399, 5616 #### [facility] of [place] [address] Cement Gun Operator: Merlin Rao MD Neutrophils (Bld) [#/Vol] 5.103 10*3/uL Normal 4690-9889 [facility] Comment on above: Performed By: #### 1 4852, 47388, 42858, 79197, 496, 6399, 5616 #### [facility] of [address], [address] [place] [address] Cement Gun Operator: Merlin Rao MD Neutrophils/100 WBC (Bld) 56.7 % Normal [facility] Comment on above: Performed By: #### 1 4852, 62645, 60131, 32215, 496, 6399, 5616 #### [facility] [place] [address] Cement Gun Operator: Merlin Rao MD Platelet mean volume (Bld) [Entitic vol] 10.4 fL Normal 7.5-12.5 [facility] Comment on above: Performed By: #### 1 4852, 98409, 32526, 50079, 496, 6399, 5616 #### [facility] [place] [address] Cement Gun Operator: Merlin Rao MD Platelets (Bld) [#/Vol] 293 10*3/uL Normal 140-400 [facility] Comment on above: Performed By: #### 1 4852, 89263, 24028, 09868, 496, 6399, 5616 #### [facility] [place] [address] Cement Gun Operator: Merlin Rao MD RBC (Bld) [#/Vol] 4.86 10*6/uL Normal 3.80-5.10 [facility] Comment on above: Performed By: #### 1 4852, 79894, 04502, 46340, 496, 6399, 5616 #### [facility] [place] [address] Cement Gun Operator: Merlin Rao MD WBC (Bld) [#/Vol] 9.0 10*3/uL Normal 3.8-10.8 [facility] Comment on above: Performed By: #### 1 4852, 86896, 83506, 84452, 496, 6399, 5616 #### [facility] of [place] [address] Cement Gun Operator: Merlin Rao MD CBC and Differentialon 11-13 Basophils (Bld) [#/Vol] 54 10*3/uL [facility] Basophils/100 WBC (Bld) 0.6 % [facility] Eosinophils (Bld) [#/Vol] 162 10*3/uL [facility] Eosinophils/100 WBC (Bld) 1.8 % [facility] Erythrocyte distribution width (RBC) [Ratio] 13.1 % 11.0 - 15.0 % [facility] Hematocrit (Bld) [Volume fraction] 43.7 % 35.0 - 45.0 % [facility] Hemoglobin (Bld) [Mass/Vol] 14.3 g/dL 11.7 - 15.5 g/dL [facility] Lymphocytes (Bld) [#/Vol] 2907 10*3/uL [facility] Lymphocytes/100 WBC (Bld) 32.3 % [facility] MCH (RBC) [Entitic mass] 29.4 pg 27.0 - 33.0 pg [facility] MCHC (RBC) [Mass/Vol] 32.7 g/dL 32.0 - 36.0 g/dL [facility] Comment on above: For adults, a slight decrease in the calculated MCHC value (in the range of 30 to 32 g/dL) is most likely not clinically significant; however, it should be interpreted with caution in correlation with other red cell parameters and the patient's clinical condition. MCV (RBC) [Entitic vol] 89.9 fL 80.0 - 100.0 fL [facility] Monocytes (Bld) [#/Vol] 774 10*3/uL [facility] Monocytes/100 WBC (Bld) 8.6 % [facility] Neutrophils (Bld) [#/Vol] 5103 10*3/uL [facility] Neutrophils/100 WBC (Bld) 56.7 % [facility] Platelet mean volume (Bld) [Entitic vol] 10.4 fL 7.5 - 12.5 fL [facility] Platelets (Bld) [#/Vol] 293 10*3/uL [facility] RBC (Bld) [#/Vol] 4.86 10*6/uL [facility] WBC (Bld) [#/Vol] 9 10*3/uL [facility] HEMOGLOBIN A1con 11-13-2024 HbA1c (Bld) [Mass [...] diagnosis of diabetes in children. According to Citizen [place] Diabetes Association (ADA) guidelines, hemoglobin A1c <7.0% represents optimal control in non- diabetic patients. Different metrics may apply to specific patient populations. Standards of Medical Care in Diabetes(ADA). Performed By: #### 1 4852, 54846, 95759, 88949, 496, 6399, 5616 #### [facility] [address], [address] [place] [address] Cement Gun Operator: Merlin Rao MD HbA1c (Bld) [Mass fraction]o n 11-13-2024 FASTING:YES AN UPDATE OR CORRECTION HAS BEEN MADE TO NAME FASTING: YES [facility] Hemoglobin A1con 11-13-2024 HbA1c (Bld) [Mass fraction] 5.5 % [facility] - 5.7 % [facility] Comment on above: For the purpose [...] diagnosis of diabetes in children. According to Citizen [place] Diabetes Association (ADA) guidelines, hemoglobin A1c <7.0% [...] FASTING: YES Performed By: #### 1 4852, 80217, 96884, 80898, 496, 6399, 5616 #### [facility] [address], [address] [place] [address] Cement Gun Operator: Merlin Rao MD Ferritin [Mass/Vol] 81 ng/mL Normal 16-154 [facility] Comment on above: Order Comment: FASTI NG:YES AN UPDATE OR CORRECTION HAS BEEN MADE TO NAME FASTING: YES Performed By: #### 1 4852, 41354, 70487, 16299, 496, 6399, 5616 #### [facility] [address], [address] [place] [address] Cement Gun Operator: Merlin Rao MD IRON BINDING CAPACITY 326 mcg/dL (calc) Normal 250-450 [facility] Comment on above: Order Comment: FASTI NG:YES AN UPDATE OR CORRECTION HAS BEEN MADE TO NAME FASTING: YES Performed By: #### 1 4852, 19011, 59410, 97644, 496, 6399, 5616 #### [facility] [address], [address] [place] [address] Cement Gun Operator: Merlin Rao MD IRON, TOTAL 90 mcg/dL Normal 40-190 [facility] Comment on above: Order Comment: FASTI NG:YES AN UPDATE OR CORRECTION HAS BEEN MADE TO NAME FASTING: YES Performed By: #### 1 4852, 36025, 61984, 30191, 496, 6399, 5616 #### [facility] [address], [address] [place] [address] Cement Gun Operator: Merlin Rao MD Iron Study with Ferritinon 0 11-13-2024 Ferritin [Mass/Vol] 81 ng/mL 16 - 154 ng/mL [facility] Iron [Mass/Vol] 90 ug/dL [facility] h Iron binding capacity [Mass/Vol] 326 [facility] Iron saturation [Mass fraction] 28 [facility] LIPID PANEL WITH REFLEX TO D IRECT LDLon 11-13-2024 Cholesterol [Mass/Vol] 161 mg/dL Normal <200 [facility] Comment on above: Performed By: #### 1 4852, 92162, 66516, 14421, 496, 6399, 5616 #### [facility] [address], [address] [place] [address] Cement Gun Operator: Merlin Rao MD Cholesterol in HDL [Mass/Vol] 50 mg/dL Normal > OR = 50 [facility] Comment on above: Performed By: #### 1 4852, 00813, 57207, 63088, 496, 6399, 5616 #### [facility] [place] [address] Cement Gun Operator: Merlin Rao MD Cholesterol in LDL [Mass/Vol] [...] LDL-C. Earl MONIQUE et al. RYAN. 2013;310(19): 1308-6454 (http://education.KongZhong.GridMarkets/faq/QVB291) Performed By: #### 1 4852, 69635, 23119, 75286, 496, 6399, 5616 #### [facility] [place] [address] Cement Gun Operator: Merlin Rao MD Cholesterol.total/C holesterol in HDL [Mass ratio] 3.2 {ratio} Normal <5.0 [facility] Comment on above: Performed By: #### 1 4852, 51641, 16930, 14920, 496, 6399, 5616 #### [facility] [place] [address] Cement Gun Operator: Merlin Rao MD NON HDL CHOLESTEROL 111 mg/dL (calc) Normal <130 [facility] Comment on above: Result Comment: For patients with diabetes plus 1 major ASCVD risk factor, treating to a non-HDL-C goal of <100 mg/dL (LDL-C of <70 mg/dL) is considered a therapeutic option. Performed By: #### 1 4852, 24606, 29752, 87713, 496, 6399, 5616 #### [facility] [place] [address] Cement Gun Operator: Merlin Rao MD Triglyceride [Mass/Vol] 137 mg/dL Normal <150 [facility] Comment on above: Performed By: #### 1 4852, 88573, 00470, 18118, 496, 0956, 5874 #### [facility] [address], [address] [place] [address] Cement Gun Operator: Merlin Rao MD Lipid 1996 panelon 5 Cholesterol [Mass/Vol] 161 mg/dL [facility] - 200 mg/dL [facility] Cholesterol in HDL [Mass/Vol] 50 mg/dL > OR = 50 [facility] Cholesterol in LDL [Mass/Vol] 87 mg/dL mg/dL (calc) [facility] Comment on above: Reference range: <10 [...] LDL-C. Earl MONIQUE et al. RYAN. 2013;310(19): 9628-1842 (http://education.Netvibes/faq/DUQ668) Cholesterol non HDL [Mass/Vol] 111 mg/dL [facility] Comment on above: For patients with di abetes plus 1 major ASCVD risk factor, treating to a non-HDL-C goal of <100 mg/dL (LDL-C of <70 mg/dL) is considered a therapeutic option. Cholesterol.total/C holesterol in HDL [Mass ratio] 3.2 {ratio} [facility] Triglyceride [Mass/Vol] 137 mg/dL [facility] - 150 mg/dL [facility] No Panel Informationon 11-13 FASTING:YES AN UPDATE OR CORRECTION HAS BEEN MADE TO NAME FASTING: YES [facility] FASTING:YES AN UPDATE OR CORRECTION HAS BEEN MADE TO NAME FASTING: YES [facility] TSH DL <= 0.005 mIU/L Qnon 0 11-13-2024 TSH Qn 1.08 m[IU]/L mIU/L [facility] Comment on above: Reference Range > [...] trimester 0.43-2.91 Performed By: #### 1 4852, 66158, 30083, 26159, 496, 6399, 5616 #### [facility] [address], [address] [place] [address] Cement Gun Operator: Merlin Rao MD VITAMIN B12/FOLATE, SERUM [facility] 11-13-2024 Cobalamin (Vitamin B12) [Mass/Vol] 433 pg/mL Normal 200-1100 [facility] Comment on above: Performed By: #### 1 4852, 80911, 23924, 22157, 496, 6399, 5616 #### [facility] [address], [address] [place] [address] Cement Gun Operator: Merlin Rao MD Folate [Mass/Vol] 20.9 ng/mL Normal [facility] Comment on above: Result Comment: Refe rence Range Low: <3.4 Borderline: 3.4-5.4 Normal: >5.4 Performed By: #### 1 4852, 92638, 24450, 53725, 496, 6399, 5616 #### [facility] [address], [address] [place] [address] Cement Gun Operator: Merlin Rao MD VITAMIN D,25-OH,TOTAL,IAon 0 11-13-2024 [...] D, (D2,D3), LC/MS/MS is recommended: order code 45910 (patients >2yrs). See Note 1 Note 1 For additional information, please refer to http://OnePageCRM.Netvibes/faq/RGW114 (This link is being provided for informational/ educational purposes only.) Performed By: #### 1 4852, 18540, 51900, 74701, 496, 6399, 5616 #### [facility] [address], [address] [place] [address] Cement Gun Operator: Merlin Rao MD Vitamin D, Total, 25-OHon 25-hydroxyvitamin D [Mass/Vol] 34 ng/mL 30 - 100 ng/mL [facility] Comment on above: Vitamin D Status 25- OH Vitamin D: Deficiency: <20 ng/mL Insufficiency: 20 - 29 ng/mL Optimal: > or = 30 ng/mL For 25-OH Vitamin D testing on patients on D2-supplementation and patients for whom quantitation of D2 and D3 fractions is required, the [facility]() 25-OH VIT D, (D2,D3), LC/MS/MS is recommended: order code 40724 (patients >2yrs). See Note 1 Note 1 For additional information, please refer to http://OnePageCRM.Netvibes/faq/VMH161 (This link is being provided for informational/ educational purposes only.) Urgent Care Xrayon Nonobstructive bowel gas pattern. Signed by: Flores Perez 01/01/2024 5:45 PM Dictation workstation: [id number] [facility] Interpreted By: Flores Perez, STUDY: XR URGENT CARE XRAY; ; 01/01/2024 5:11 pm INDICATION: Signs/Symptoms:abdom en pain. COMPARISON: None. ACCESSION NUMBER(S): [id number] ORDERING CLINICIAN: NIRAJ KENNEDY FINDINGS: Nonobstructive bowel gas pattern. No radiographically evident renal calculi. [facility] Flores Perez MD - 01/01/2024 Interpreted By: Flores Perez, STUDY: XR URGENT CARE XRAY; ; 01/01/2024 5:11 pm INDICATION: Signs/Symptoms:abdom en pain. COMPARISON: None. ACCESSION NUMBER(S): [id number] ORDERING CLINICIAN: NIRAJ KENNEDY FINDINGS: Nonobstructive bowel gas pattern. No radiographically evident renal calculi. IMPRESSION: Nonobstructive bowel gas pattern. Signed by: Flores Perez 01/01/2024 5:45 PM Dictation workstation: [id number] Work Phone: Radiology Study observation (narrative) [facility] Work Phone: Urgent Care XrayOrdered By: Flores Perez on 01-01-2024 [facility] Work Phone: XR URGENT CARE XRAYon 2023 XR URGENT CARE XRAY Interpreted By: Flores Perez, STUDY: XR URGENT CARE XRAY; ; 01/01/2024 5:11 pm INDICATION: Signs/Symptoms:abdom en pain. COMPARISON: None. ACCESSION NUMBER(S): [id number] ORDERING CLINICIAN: NIRAJ KENNEDY FINDINGS: Nonobstructive bowel gas pattern. No radiographically evident renal calculi. IMPRESSION: Nonobstructive bowel gas pattern. Signed by: Flores Perez 01/01/2024 5:45 PM Dictation workstation: [id number] [facility] XR HIP RIGHT 2-3 VIEWS (ROUT INE)on [...] unremarkable. IMPRESSION: Findings as above. Workstation ID: [id number] Dictated by: VALERIE MURPHY on SunApr 26, 2022 10:46:27 PM EST Transcribed by: VALERIE MURPHY on SunApr 26, 2022 10:46:27 PM EST Finalized by: VALERIE MURPHY on SunApr 26, 2022 10:46:27 PM EST [facility] Comment on above: Order Comment: Injur y/Trauma [...] appropriate. IMPRESSION: Findings as above. Workstation ID: [id number] Dictated by: VALERIE MURPHY on SunApr 26, 2022 10:45:31 PM EST Transcribed by: VALERIE MURPHY on SunApr 26, 2022 10:45:31 PM EST Finalized by: VALERIE MURPHY on SunApr 26, 2022 10:45:31 PM EST [facility] Comment on above: Order Comment: Injur y/Trauma [...] on SunAug 16, 2021 8:18:42 AM EDT [facility] Comment on above: Order Comment: Injur y/Trauma or Illness?:Injury/Trauma How long have you had these symptoms (acute/chronic)?:Chronic Reason for exam?:Had a fall 3 months ago while skiing, knee aches/throbs after walking, hard to walk once sore, hip/ankle are also starting to hurt. Type of Exam?:Initial Mechanism of injury?: HCG ( test) Ql (U)O rdered By: Genia Cohen on 09-29-2020 Internal Control Pass [facility] Interpretation and review of laboratory results Normal [facility] POC , UrineOrdered By: Genia Cohen on 09-29-2020 HCG ( test) Ql (U) Negative Negative [facility] Urinalysis macro (dipstick) panel (U)Ordered By: Genia Cohen on 09-29-2020 Bilirubin Ql (U) Negative Negative [facility] Glucose Ql (U) Negative Normal, Negative mg/dL [facility] Hemoglobin Ql (U) Negative Negative [facility] [facility] Interpretation and review of laboratory results Abnormal [facility] Ketones Ql (U) Negative Negative mg/dL [facility] Leukocyte esterase Test strip Ql (U) Negative Negative [facility] Nitrite Ql (U) Negative Negative [facility] pH (U) 7.5 [pH] Abnormal [facility] Protein Ql (U) Negative Negative mg/dL [facility] Specific gravity (U) [Rel density] 1.025 [facility] Urobilinogen Qn (U) 0.2 mg/dL <2.0, 0. 2, Normal, Negative, 1.0, 2.0, <1.0 [facility] HM PAP SMEAROrdered By: [facility] on 05-30-2019 Cytology report Cyto stain.thin prep Doc (Cvx/Vag) Negative [facility] HPV 16+18+31+33+35+39+4 5+51+52+56+58+59+68 DNA Probe+sig amp Ql (Cvx) [facility] Interpretation and review of laboratory results Normal [facility] CYTOLOGYon 07-10-2017 CYTOLOGY RUN DATE: 07/16/[address] [facility] LIVE SYSTEM PAGE 1 RUN TIME: 933 Specimen Inquiry RUN USER: INTERFACE PATIENT: LAURA WILEY LOC: [facility] U #: [id number] AGE/SX: 21/F ROOM: RE07/10/17REG DR: ML ACEVEDO DO : 94 BED: DIS: STATUS: REG CLI TLOC: SPEC #: [id number] RECD: 07/11/17 STATUS: JIMMIE REMaría #: [id number] GRACIELA: 07/10/17- SUBM DR: ML ACEVEDO DO ENTERED: 07/11/17 SP TYPE: CYTOLOGY OTHR DR: ORTIZ SABILLON MD ORDERED: [id number], N/C, [id number] SPECIMEN ADEQUACY SATISFACTORY FOR EVALUATION. ENDOCERVICAL/TRANSFO RMATION [...] Specimen Inquiry RUN USER: INTERFACE SPEC #: [id number] PATIENT: LAURA WILEY #[id number] (Continued)--------- --- RECOMMENDATION HPV DNA TESTING IS THE PREFERRED FOLLOW-UP FOR WOMEN AGE 25 OR GREATER WITH ATYPICAL SQUAMOUS CELLS OF UNDETERMINED SIGNIFICANCE, ACCORDING TO THE UPDATED CONSENSUS GUIDELINES ON THE MANAGEMENT OF WOMEN WITH ABNORMAL CERVICAL CANCER SCREENING TESTS AND CANCER PRECURSORS (PUBLISHED BY THE ASCCP 2013). SCREENED BY: ALIZA Walker([facility]) Signed Electronically Signed MIKE KAUR MD 07/16/17 0933 END OF REPORT Normal [facility] SURGICAL PATHOLOGYon 018 SURGICAL PATHOLOGY RUN DATE: 07/16/[address] [facility] LIVE SYSTEM PAGE 1 RUN TIME: 1312 Specimen Inquiry RUN USER: INTERFACE PATIENT: LAURA WILEY LOC: [facility] U #: [id number] AGE/SX: 21/F ROOM: RE07/10/17REG DR: ML ACEVEDO DO : 94 BED: DIS: STATUS: REG CLI TLOC: SPEC #: [id number] RECD: 07/11/17-799 STATUS: JIMMIE PACKER #: [id number] GRACIELA: 07/10/17- [facility] DR: ML ACEVEDO DO ENTERED: 07/11/17-0801 SP TYPE: SURGICAL OTHR DR: KEO MARIE,ORTIZ Javier ORDERED: [id number], [id number], N/C GROSS DESCRIPTION Labeled 12 o'clock, is a 0.4 x 0.3 x 0.1 cm aggregate of fragments of narayanan tissue. All in 1a. MICROSCOPIC DIAGNOSIS Uterine cervix, 12 o'clock, biopsies: - MILD SQUAMOUS ATYPIA. SEE COMMENT. COMMENT: The findings are not diagnostic of intraepithelial lesion. The concurrent cytology ([id number]) correlates in that neither specimen contains diagnostic [...] MD 07/16/17 1312 END OF REPORT Normal [facility] POC Urinalysis Dipstick,Auto UCon 02-24-2017 Bilirubin Ql (U) Small Abnormal Negative [facility] Work Phone: Clarity, UA Clear Invalid Interpretation Code Clear [facility] Work Phone: Interpretation and review of laboratory results Abnormal Invalid Interpretation Code [facility] Work Phone: POC Color, Urine Yellow Invalid Interpretation Code Yellow, Light Yellow, Dark Yellow [facility] Work Phone: Urine, glucose presence Negative Invalid Interpretation Code Normal, Negative mg/dL [facility] Work Phone: Urine, hemoglobin presence Small Abnormal Negative [facility] Work Phone: Urine, ketones presence Negative Invalid Interpretation Code Negative mg/dL [facility] Work Phone: Urine, leukocyte esterase presence Trace Abnormal Negative [facility] Work Phone: Urine, nitrite presence Negative Invalid Interpretation Code Negative [facility] Work Phone: Urine, pH 5.5 [pH] Invalid Interpretation Code 5.0 - 7.0 [facility] Work Phone: Urine, protein presence 100 Abnormal Negative mg/dL [facility] Work Phone: Urine, specific gravity 1.030 1 Abnormal 1.005 - 1.025 [facility] Work Phone: Urine, urobilinogen 0.2 mg/dL Invalid Interpretation Code <2.0, 0.2, Normal, Negative, 1.0, 2.0, <1.0 [facility] Work Phone: CHLAMYDIA GONORRHOEAE rRNAon 02-12-2017 CHLAMYDIA RNA Negative Normal NEGATIVE [facility] Comment on above: Result Comment: This test was performed using the FDA approved Aptima [id number] (Gen-Probe(R)) for unisex swabs, vaginal swabs, andmale urine specimens. The use of female urine specimens fortesting was validated at [facility]. Performed By: #### C TGCRNA ####[facility] [id number] [place] [address] GONORRHOEAE RNA Negative Normal NEGATIVE [facility] Comment on above: Result Comment: This test was performed using the FDA approved Aptima [id number] (Gen-Probe(R)) for unisex swabs, vaginal swabs, andmale urine specimens. The use of female urine specimens fortesting was validated at [facility]. Performed By: #### C TGCRNA ####[facility] [id number] [place] [address] CYTOLOGYon 02-09-2017 CYTOLOGY RUN DATE: 02/14/17 [employer] LABORATORY LIVE SYSTEM PAGE 1 RUN TIME: 0196 Specimen Inquiry RUN USER: INTERFACE PATIENT: LAURA WILEY LOC: [facility] U #: [id number] AGE/SX: 21/F ROOM: RE02/09/17REG DR: ML ACEVEDO DO : 94 BED: DIS: STATUS: REG CLI TLOC: SPEC #: [id number] RECD: 02/12/17 STATUS: JIMMIE REQ #: [id number] GRACIELA: 02/09/17- SUBM DR: ML ACEVEDO DO ENTERED: 02/12/17 SP TYPE: CYTOLOGY OTHR DR: KEO MARIE,ORTIZ Javier ORDERED: [id number], N/C, [id number] SPECIMEN ADEQUACY SATISFACTORY FOR EVALUATION. [...] MD 02/14/17 1549 END OF REPORT Normal [facility] SURGICAL PATHOLOGYon 017 SURGICAL PATHOLOGY RUN DATE: 02/14/17 [employer] LIVE SYSTEM PAGE 1 RUN TIME: 1402 Specimen Inquiry RUN USER: INTERFACE PATIENT: LAURA WILEY LOC: [facility] #: [id number] AGE/SX: 21/F ROOM: RE02/09/17REG DR: ML ACEVEDO DO : 94 BED: DIS: STATUS: REG CLI TLOC: SPEC #: [id number] RECD: 02/12/17 STATUS: [facility] RE #: [id number] GRACIELA: 02/09/17- [facility] DR: ML ACEVEDO DO ENTERED: 02/12/17 SP TYPE: SURGICAL OTHR DR: KEO MARIE,ORTIZ Javier ORDERED: [id number], N/C GROSS DESCRIPTION Labeled 12 o'clock and received in formalin is a 0.7 cm x 0.2 cm x 0.1 cm aggregate of fragments of flowers and dark brown tissue, all in 1A. MICROSCOPIC DIAGNOSIS Cervix, 12 o'clock, biopsy: LOW-GRADE SQUAMOUS INTRAEPITHELIAL LESION (PRIYA 1). CORRELATION: The concurrent cytology # [id number] was reviewed, contains low-grade squamous intraepithelial lesion and correlates. ADEQUACY: The specimen is fragmented and somewhat scanty but adequate for interpretation. COLPOSCOPIC IMPRESSION: Inflammation. OPERATION COLPOSCOPY WITH BIOPSY. POST OPERATIVE DIAGNOSIS Same. PREOPERATIVE DIAGNOSIS PRIYA 1, mild cervical dysplasia. Signed Electronically Signed KESHAV CARDONA MD 02/14/17 1402 END OF REPORT Normal [facility] POC Urinalysis Dipstick, Jonel valencia 01-25-2017 Interpretation and review of laboratory results Abnormal Invalid Interpretation Code [facility] Work Phone: Urine, bilirubin presence Negative Invalid Interpretation Code Negative mg/dL [facility] Work Phone: Urine, glucose presence Negative Invalid Interpretation Code Normal, Negative mg/dL [facility] Work Phone: Urine, hemoglobin presence Small Abnormal Negative RBC/uL [facility] Work Phone: Urine, ketones presence Negative Invalid Interpretation Code Negative mg/dL [facility] Work Phone: Urine, leukocyte esterase presence Moderate Abnormal Negative WBC/uL [facility] Work Phone: Urine, nitrite presence Positive Abnormal Negative [facility] Work Phone: Urine, pH 6.5 [pH] Invalid Interpretation Code 5.0 - 7.0 [facility] Work Phone: Urine, protein presence 30 Abnormal Negative mg/dL [facility] Work Phone: Urine, specific gravity 1.020 1 Invalid Interpretation Code 1.005 - 1.025 [facility] Work Phone: Urine, urobilinogen 0.2 mg/dL Invalid Interpretation Code <2.0, 0.2, Normal, Negative, 1.0, 2.0, <1.0 [facility] Work Phone: Vital Signs Date Time Vital Sign Value Performing Clinician Facility 11-12-2024 16:16-0400 Body height 172.7 cm Genia Cohen [facility] Work Phone: [facility] 11-12-2024 16:16-0400 Body mass index (BMI) [Ratio] 33.37 kg/m2 Genia Cohen [employer] Work Phone: [facility] 11-12-2024 16:16-0400 Body weight 99.56 kg Genia Cohen [employer] Work Phone: [facility] 11-12-2024 16:16-0400 Diastolic blood pressure 87 mm[Hg] Genia Cohen [employer] Work Phone: [facility] 11-12-2024 16:16-0400 Heart rate 80 /min Genia Cohen [employer] Work Phone: [facility] 11-12-2024 16:16-0400 Respiratory rate 16 /min Genia Cohen [employer] Work Phone: [facility] 11-12-2024 16:16-0400 SaO2% (BldA) [Mass fraction] 96 % Genia Cohen [employer] Work Phone: [facility] 11-12-2024 16:16-0400 Systolic blood pressure 119 mm[Hg] Genia Cohen [employer] Work Phone: [facility] 01-01-2024 16:48-0400 Body temperature 98.78 [degF] Niraj Kennedy [facility] 01-01-2024 16:48-0400 Body weight 93.4 kg Niraj Kennedy [facility] 01-01-2024 16:48-0400 Diastolic blood pressure 85 mm[Hg] Niraj Kennedy [facility] 01-01-2024 16:48-0400 Heart rate 82 /min Niraj Kennedy [facility] 01-01-2024 16:48-0400 Respiratory rate 16 /min Niraj Kennedy [facility] 01-01-2024 16:48-0400 SaO2% (BldA) [Mass fraction] 96 % Niraj Kennedy [facility] 01-01-2024 16:48-0400 Systolic blood pressure 124 mm[Hg] Niraj Kennedy [facility] 02-12-2023 07:52-0400 Body height 172.7 cm Genia Cohen [employer] Work Phone: [facility] 02-12-2023 07:52-0400 Body mass index (BMI) [Ratio] 30.18 kg/m2 Genia Cohen [employer] Work Phone: [facility] 02-12-2023 07:52-0400 Body temperature 98.4 [degF] Genia Cohen [employer] Work Phone: [facility] 02-12-2023 07:52-0400 Body weight 90.04 kg Genia Cohen [employer] Work Phone: [facility] 02-12-2023 07:52-0400 Diastolic blood pressure 83 mm[Hg] Genia Cohen [employer] Work Phone: [facility] 02-12-2023 07:52-0400 Heart rate 81 /min Genialissette Cohen [employer] Work Phone: [facility] 02-12-2023 07:52-0400 Respiratory rate 18 /min Genia Cohen [employer] Work Phone: [facility] 02-12-2023 07:52-0400 SaO2% (BldA) [Mass fraction] 96 % Genia Cohen [employer] Work Phone: [facility] 02-12-2023 07:52-0400 Systolic blood pressure 136 mm[Hg] Geniakandy Cohen [employer] Work Phone: [facility] 08-04-2021 09:56-0400 Body height 172.7 cm Genia Cohen CNP Work Phone: [facility] 08-04-2021 09:56-0400 Body mass index (BMI) [Ratio] 28.05 kg/m2 Genia Cohen CNP Work Phone: [facility] 08-04-2021 09:56-0400 Body temperature 97.7 [degF] Genia Cohen CNP Work Phone: [facility] 08-04-2021 09:56-0400 Body weight 83.69 kg Genia Cohen CNP Work Phone: [facility] 08-04-2021 09:56-0400 Diastolic blood pressure 76 mm[Hg] Genia Cohen CNP Work Phone: [facility] 08-04-2021 09:56-0400 Heart rate 67 /min Genia Cohen CNP Work Phone: [facility] 08-04-2021 09:56-0400 Respiratory rate 18 /min Genia Cohen CNP Work Phone: [facility] 08-04-2021 09:56-0400 SaO2% (BldA) [Mass fraction] 96 % Genia Cohen CNP Work Phone: [facility] 08-04-2021 09:56-0400 Systolic blood pressure 117 mm[Hg] Genia Cohen CNP Work Phone: [facility] 01-19-2021 10:05-0400 Body height 172.7 cm Joaquin Mayelin DO Work Phone: [facility] 01-19-2021 10:05-0400 Body mass index (BMI) [Ratio] 26.94 kg/m2 Joaquin Mayelin DO Work Phone: [facility] 01-19-2021 10:05-0400 Body temperature 98.29 [degF] Joaquin Mayelin DO Work Phone: [facility] 01-19-2021 10:05-0400 Body weight 80.38 kg Joaquin Guadalupet DO Work Phone: [facility] 01-19-2021 10:05-0400 Diastolic blood pressure 74 mm[Hg] Joaquin Guadalupet DO Work Phone: [facility] 01-19-2021 10:05-0400 Heart rate 74 /min Joaquin Guadalupet DO Work Phone: [facility] 01-19-2021 10:05-0400 SaO2% (BldA) [Mass fraction] 97 % Joaquin Dick DO Work Phone: [facility] 01-19-2021 10:05-0400 Systolic blood pressure 113 mm[Hg] Joaquin Dick DO Work Phone: [facility] 09-29-2020 09:02-0400 Body height 172.7 cm Genia Cohen CNP Work Phone: [facility] 09-29-2020 09:02-0400 Body mass index (BMI) [Ratio] 26.88 kg/m2 Genia Cohen CNP Work Phone: [facility] 09-29-2020 09:02-0400 Body temperature 97.81 [degF] Genia Cohen CNP Work Phone: [facility] 09-29-2020 09:02-0400 Body weight 80.2 kg Genia Cohen [employer] Work Phone: [facility] 09-29-2020 09:02-0400 Diastolic blood pressure 74 mm[Hg] Genia Cohen [employer] Work Phone: [facility] 09-29-2020 09:02-0400 Heart rate 74 /min Genia Cohen [employer] Work Phone: [facility] 09-29-2020 09:02-0400 Respiratory rate 18 /min Genia Cohen [employer] Work Phone: [facility] 09-29-2020 09:02-0400 SaO2% (BldA) [Mass fraction] 96 % Genia Cohen [employer] Work Phone: [facility] 09-29-2020 09:02-0400 Systolic blood pressure 120 mm[Hg] Genia Cohen [employer] Work Phone: [facility] 02-24-2017 10:28-0400 BMI (Body Mass Index) 24.33 kg/m2 Luis Ramos [facility] Work Phone: 02-24-2017 10:28-0400 Body Temperature 98.1 [degF] Luis Ramos [facility] Work Phone: 02-24-2017 10:28-0400 BP Diastolic 74 mm[Hg] Luis Ramos [facility] Work Phone: 02-24-2017 10:28-0400 BP Systolic 112 mm[Hg] Luis Ramos [facility] Work Phone: 02-24-2017 10:28-0400 Height 172.7 cm Luis Ramos [facility] Work Phone: 02-24-2017 10:28-0400 Pulse (Heart Rate) 67 /min Luis Ramos [facility] Work Phone: 02-24-2017 10:28-0400 Pulse Oximetry 97 % Luis Ramos [facility] Work Phone: 02-24-2017 10:28-0400 Respiratory Rate 14 /min Luis Ramos [facility] Work Phone: 02-24-2017 10:28-0400 Weight 72.58 kg Luis Ramos [facility] Work Phone: 01-25-2017 10:57-0400 BMI (Body Mass Index) 25.54 kg/m2 [facility] Work Phone: 01-25-2017 10:57-0400 Body Temperature 98.1 [degF] [facility] Work Phone: 01-25-2017 10:57-0400 BP Diastolic 78 mm[Hg] [facility] Work Phone: 01-25-2017 10:57-0400 BP Systolic 117 mm[Hg] [facility] Work Phone: 01-25-2017 10:57-0400 Height 172.7 cm [facility] Work Phone: 01-25-2017 10:57-0400 Pulse (Heart Rate) 76 /min [facility] Work Phone: 01-25-2017 10:57-0400 Pulse Oximetry 96 % [facility] Work Phone: 01-25-2017 10:57-0400 Respiratory Rate 15 /min [facility] Work Phone: 01-25-2017 10:57-0400 Weight 76.2 kg [facility] Work Phone: Encounters Encounter Date Encounter Type Care Provider Facility Start: 02-17-2025 ambulatory [facility] Facility :[facility] Start: 02-09-2025 End: 02-09-2025 ambulatory [facility] Facility:[facility] Start: 11-18-2024 End: 01-18-2025 Follow-up encounter Genia Cohen [employer] Work Phone: [facility] Comment on above: B12/Folate, TSH with Reflex Free T4, Vitamin D, Total, 25-OH, Additional followed-up results: 5 Start: 11-12-2024 End: 11-12-2024 Patient encounter status Genia Cohen [employer] Work Phone: [facility] Work Phone: Start: 11-12-2024 End: 11-12-2024 Periodic preventive med est patient 18-39 yrs Genia Cohen [employer] Work Phone: [facility] Comment on above: Routine general medi ivy examination at a health care facility (Primary Dx); Anxiety; Fatigue, unspecified type; Menorrhagia with regular cycle; Vitamin D deficiency; Screening for diabetes mellitus Start: 11-12-2024 End: 11-16-2024 ambulatory GENIA COHEN [facility] Start: 11-12-2024 End: 11-16-2024 Encounter for general adult medical examination without abnormal findings GENIA COHEN [facility] Start: 10-13-2024 End: 10-20-2024 Refill Genia Cohen [employer] Work Phone: [facility] Comment on above: Anxiety Start: 01-01-2024 End: 01-01-2024 Subsequent hospital visit by physician [facility] Comment on above: Generalized abdomina l pain Start: 01-01-2024 End: 01-01-2024 ambulatory NIRAJ KENNEDY [facility] Start: 01-01-2024 Niraj Kennedy [facility] Start: 08-16-2023 End: 08-16-2023 Office outpatient visit 15 minutes Genialissette Cohen [employer] Work Phone: [facility] Comment on above: Anxiety Start: 08-06-2023 Refill Vannessafely Porter ans [employer] Work Phone: [facility] Comment on above: Anxiety Start: 07-30-2023 Refill Genia Arias se Cohen [employer] Work Phone: [facility] Comment on above: Anxiety Start: 06-12-2023 Refill Genia Arias Cohen [employer] Work Phone: [facility] Comment on above: Anxiety Start: 03-15-2023 End: 03-15-2023 Office outpatient visit 15 minutes Geniakandy Cohen [employer] Work Phone: [facility] Comment on above: Anxiety (Primary Dx) Start: 02-12-2023 End: 02-16-2023 ambulatory GENIA COHEN [facility] Start: 02-12-2023 End: 02-16-2023 Encounter for general adult medical examination without abnormal findings GENIA COHEN [facility] Start: 02-12-2023 End: 02-12-2023 Patient encounter status Genia Cohen [employer] Work Phone: [facility] Start: 02-12-2023 End: 02-12-2023 Periodic preventive med est patient 18-39 yrs Genia Cohen [employer] Work Phone: [facility] Comment on above: Routine general medi ivy examination at a health care facility (Primary Dx); Routine Papanicolaou smear; Anxiety; Immunization due Start: 04-26-2022 End: 04-27-2022 [facility] Start: 10-28-2021 End: 10-28-2021 Office outpatient visit 15 minutes Genia Cohen [employer] Work Phone: [facility] Comment on above: Anxiety (Primary Dx) ; Attention deficit Start: 08-18-2021 Orders Only Genia Cohen [employer] Work Phone: [facility] Comment on above: Strain of right goss llar tendon, subsequent encounter (Primary Dx) Start: 08-15-2021 End: 08-16-2021 ambulatory GENIALISSETTE COHEN [facility] Start: 08-04-2021 End: 08-04-2021 Office outpatient visit 25 minutes Genia Cohen [employer] Work Phone: [facility] Comment on above: Acute pain of right knee (Primary Dx); Anxiety Start: 01-19-2021 End: 01-19-2021 Office outpatient visit 15 minutes Joaquin Dick DO Work Phone: [facility] Comment on above: Anxiety Start: 10-20-2020 End: 10-20-2020 ambulatory Christiano HUMPHREY [facility] Start: 10-20-2020 Coordination of care plan Christiano Dawn DIRECTOR OPERATING ROOM [facility] Comment on above: Care coordination - [facility] Start: 09-29-2020 End: 09-29-2020 Office outpatient new 45 minutes Genia Zayra Cohen [employer] Work Phone: [facility] Comment on above: Anxiety (Primary Dx) ; Irregular periods; Missed period; Dysuria; Encounter for counseling regarding contraception Start: 07-10-2017 Ambulatory ML ACEVEDO Facility:. Start: 02-24-2017 End: 02-24-2017 Ambulatory ORTIZ SABILLON [facility] Start: 02-24-2017 Office outpatient vi sit 15 minutes Luis Ramos Work Phone: [facility] Start: 02-09-2017 Ambulatory ML ACEVEDO Facility:. Start: 01-25-2017 End: 01-25-2017 Ambulatory KATI REYES [facility] Start: 01-25-2017 Office/outpatient visit, new, level 2 Kati Reyes Work Phone: [facility] Procedures Date Procedure Procedure Detail Performing Clinician Start: 11-12-2024 Basic metabolic pane l calcium total Genia Cohen [employer] Work Phone: Start: 11-12-2024 Complete blood count with white cell differential, manual Genia Cohen [employer] Work Phone: Start: 11-12-2024 Lipid panel Genia Cohen [employer] Work Phone: Start: 01-01-2024 XR URGENT CARE XRAY Cole Kennedy MD Work Phone: Start: 02-12-2023 Microscopic observat ion [Identifier] in Cervix by Cyto stain Genia Cohen [employer] Work Phone: Start: 09-29-2020 End: 09-29-2020 Urnls [...] 2) Zoste r Vaccines (1 of 2) [facility] Start: 02-12-2026 Screening for malign ant neoplasm of cervix [facility] Start: 11-12-2025 History and physical examination, annual for health maintenance Wellness Visit [facility] Start: 12-29-2024 COVID-19 Vaccine ( season) COVID-19 Vaccine ( season) [facility] Start: 12-29-2024 Influenza vaccination [facility] Start: 11-04-2024 End: 11-04-2024 Patient encounter procedure 11/04/2024 2:40 PM EDT Office Visit [facility] [address] [place] [id number] Genia Cohen CNP [address] [place] [address] [facility] Start: 2024 Screening for malign ant neoplasm of cervix HPV/Cotest [facility] Start: 02-13-2024 History and physical examination, annual for health maintenance Wellness Visit [facility] Start: 12-30-2023 COVID-19 Vaccine ( season) COVID-19 Vaccine ( season) [facility] Start: 12-30-2023 COVID-19 Vaccine ( season) COVID-19 Vaccine ( season) [facility] Start: 12-30-2023 Influenza vaccination Influenza Vacc ine (#1) [facility] Start: 08-16-2023 End: 08-16-2023 Telemedicine consultation with patient 08/16/2023 8:00 AM EDT Telemedicine [facility] [address] [place] [address] Genia Cohen CNP [address] [place] [address] [facility] Start: 03-15-2023 End: 03-15-2023 Telemedicine consultation with patient 03/15/2023 7:30 AM EST Telemedicine [facility] [address] [place] [address] Omid Genia Zayra, [employer] [address] [place] [address] [facility] Start: 12-29-2022 COVID-19 Vaccine () COVID-19 Vaccine () [facility] Start: 05-27-2022 Screening for malign ant neoplasm of cervix Pap Smear [facility] Start: 12-29-2021 Influenza vaccination [facility] Start: 09-29-2021 Depression screening using PHQ-9 (Patient Health Questionnaire 9) score [facility] Start: 07-23-2021 COVID-19 Vaccine (3 - Booster for Pfizer series) COVID-19 Vaccine (3 - Booster for Pfizer series) [facility] Start: 12-29-2020 Influenza vaccination Sequenti al Influenza Vaccine (#1) [facility] Start: 02-26-2018 DTaP/Tdap/Td Vaccine s (7 - Td or Tdap) DTaP/Tdap/Td Vaccines (7 - Td or Tdap) [facility] Start: 02-26-2018 Tetanus vaccination Tetanus: Every 1 0yrs [facility] Start: 12-29-2016 Influenza vaccination SEQUENTI AL INFLUENZA VACCINE (#1) [facility] Work Phone: Start: 10-26-2015 Screening for malign ant neoplasm of cervix HPV/Cotest [facility] Start: 2012 Hepatitis C screening Hepatitis C Sc reening [facility] Start: 2009 HIV screening HIV Screening [facility] Start: 02-09-2009 Hepatitis A Vaccines (2 of 2 - 2-dose series) Hepatitis A Vaccines (2 of 2 - 2-dose series) [facility] Start: 2006 COVID-19 Vaccine (1) COVID-19 Vaccin e (1) [facility] Start: 2005 Vaccination for sotero n papillomavirus [facility] Work Phone: Start: 1997 History and physical examination, annual for health maintenance Wellness Visit [facility] Start: 1994 HIV screening HIV Screening [facility] Start: 1994 Lipid panel Lipid Panel [facility] Start: 1994 Screening for malign ant neoplasm of cervix PAP SMEAR [facility] Work Phone: Start: 1994 Tetanus vaccination [facility] Start: 1994 Yearly Adult Physical Yearly Adult P [facility] End: 09-29-2021 B12/Folate B12/Folate Lab Routine Missed period Dysuria Anxiety Irregular periods 1 Occurrences starting 09/29/2020 until 09/29/2021 [facility] Comment on above: 1 Occurrences starti ng 09/29/2020 until 09/29/2021 B12/Folate B12/Folate Lab R outine Missed period Dysuria Anxiety Irregular periods 09/29/2020 9:49 AM EDT [facility] End: 02-13-2024 B12/Folate B12/Folate Lab Routine Anxiety Routine general medical examination at a health care facility 1 Occurrences starting 02/12/2023 until 02/13/2024 [facility] Comment on above: 1 Occurrences starti ng 02/12/2023 until 02/13/2024 B12/Folate B12/Folate Lab R outine Anxiety Routine general medical examination at a health care facility 02/12/2023 8:56 AM EDT [facility] Bacteria aerobode culture Urine Aerobic Culture Routine Acute cystitis without hematuria 01/25/2017 10:53 AM EDT [facility] Work Phone: End: 09-29-2021 Comprehensive metabolic 2000 panel - Serum or Plasma Comprehensive Metabolic Panel Lab Routine Missed period Dysuria Anxiety Irregular periods 1 Occurrences starting 09/29/2020 until 09/29/2021 [facility] Comment on above: 1 Occurrences starti ng 09/29/2020 until 09/29/2021 Comprehensive metabo lic 2000 panel - Serum or Plasma Comprehensive Metabolic Panel Lab Routine Missed period Dysuria Anxiety Irregular periods 09/29/2020 9:49 AM EDT [facility] End: 02-13-2024 Comprehensive metabolic 2000 panel - Serum or Plasma Comprehensive Metabolic Panel Lab Routine Anxiety Routine general medical examination at a health care facility 1 Occurrences starting 02/12/2023 until 02/13/2024 [facility] Comment on above: 1 Occurrences starti ng 02/12/2023 until 02/13/2024 Comprehensive metabo lic 2000 panel - Serum or Plasma Comprehensive Metabolic Panel Lab Routine Anxiety Routine general medical examination at a health care facility 02/12/2023 8:56 AM EDT [facility] End: 02-13-2024 Hemoglobin A1c/Hemoglobin.total in Blood Hemoglobin A1c Lab Routine Anxiety Routine general medical examination at a health care facility 1 Occurrences starting 02/12/2023 until 02/13/2024 [facility] Comment on above: 1 Occurrences starti ng 02/12/2023 until 02/13/2024 Hemoglobin A1c/Hemoglobin.total in Blood Hemoglobin A1c Lab Routine Anxiety Routine general medical examination at a health care facility 02/12/2023 8:56 AM EDT [facility] End: 02-13-2024 Lipid 1996 panel - Serum or Plasma Lipid Panel Lab Routine Anxiety Routine general medical examination at a health care facility 1 Occurrences starting 02/12/2023 until 02/13/2024 [facility] Comment on above: 1 Occurrences starti ng 02/12/2023 until 02/13/2024 Lipid 1996 panel - S gerardo or Plasma Lipid Panel Lab Routine Anxiety Routine general medical examination at a health care facility 02/12/2023 8:56 AM EDT [facility] Microscopic examinat ion of vaginal Papanicolaou smear Thinprep Pap Smear Pathology and Cytology Routine Routine Papanicolaou smear Ordered: 02/12/2023 [facility] Work Phone: Comment on above: Ordered: 02/12/2023 End: 08-04-2022 MR Knee Right Without Contrast MR Knee Right Without Contrast Imaging Routine Acute pain of right knee 1 Occurrences starting 08/04/2021 until 08/04/2022 [facility] Comment on above: 1 Occurrences starti ng 08/04/2021 until 08/04/2022 End: 09-29-2021 Thyrotropin [Units/volume] in Serum or Plasma TSH with Reflex Free T4 Lab Routine Missed period Dysuria Anxiety Irregular periods 1 Occurrences starting 09/29/2020 until 09/29/2021 [facility] Comment on above: 1 Occurrences starti ng 09/29/2020 until 09/29/2021 Thyrotropin [Units/volume] in Serum or Plasma TSH with Reflex Free T4 Lab Routine Missed period Dysuria Anxiety Irregular periods 09/29/2020 9:49 AM EDT [facility] End: 02-13-2024 Thyrotropin [Units/volume] in Serum or Plasma TSH with Reflex Free T4 Lab Routine Anxiety Routine general medical examination at a health care facility 1 Occurrences starting 02/12/2023 until 02/13/2024 [facility] Comment on above: 1 Occurrences starti ng 02/12/2023 until 02/13/2024 Thyrotropin [Units/volume] in Serum or Plasma TSH with Reflex Free T4 Lab Routine Anxiety Routine general medical examination at a health care facility 02/12/2023 8:56 AM EDT [facility] End: 09-29-2021 Vitamin D, 25-hydroxy measurement Vitamin D, Total, 25-OH Lab Routine Missed period Dysuria Anxiety Irregular periods 1 Occurrences starting 09/29/2020 until 09/29/2021 [facility] Comment on above: 1 Occurrences starti ng 09/29/2020 until 09/29/2021 Vitamin D, 25-hydrox y measurement Vitamin D, Total, 25-OH Lab Routine Missed period Dysuria Anxiety Irregular periods 09/29/2020 9:49 AM EDT [facility] End: 02-13-2024 Vitamin D, 25-hydroxy measurement Vitamin D, Total, 25-OH Lab Routine Anxiety Routine general medical examination at a health care facility 1 Occurrences starting 02/12/2023 until 02/13/2024 [facility] Comment on above: 1 Occurrences starti ng 02/12/2023 until 02/13/2024 Vitamin D, 25-hydrox y measurement Vitamin D, Total, 25-OH Lab Routine Anxiety Routine general medical examination at a health care facility 02/12/2023 8:56 AM EDT [facility] End: 08-04-2022 XR Knee Right 2 Views (Standard) XR Knee Right 2 Views (Standard) Imaging Routine Acute pain of right knee 1 Occurrences starting 08/04/2021 until 08/04/2022 [facility] Work Phone: Comment on above: 1 Occurrences starti ng 08/04/2021 until 08/04/2022 Immunizations Immunization Date Immunization Notes Care Provider Fa hiram 02-12-2023 influenza, injectabl e, quadrivalent, preservative free Genia Cohen [employer] Work Phone: [facility] 02-12-2023 flu vacc [id number] 6 mos up,PF, (FLUZONE QUAD/FLULAVAL QUAD/FLUARIX QUAD) 60 mcg (15 mcg x 4)/0.5 mL Syrg syringe Genia Cohen [employer] Work Phone: [facility] 02-12-2023 influenza virus vacc ine, unspecified formulation Wellst Xr1 [facility] Work Phone: 02-09-2020 influenza, injectabl e, quadrivalent, preservative free Genia Cohen [employer] Work Phone: [facility] 01-23-2019 influenza, injectabl e, quadrivalent, preservative free Genia Cohen [employer] Work Phone: [facility] 02-07-2018 Influenza, injectabl e, Madin [place] Canine Kidney, preservative free, quadrivalent Genia Cohen [employer] Work Phone: [facility] 01-30-2017 influenza, injectabl e, quadrivalent, preservative free Genialissette Cohen [employer] Work Phone: [facility] 01-25-2015 influenza, seasonal, injectable Genia Cohen [employer] Work Phone: [facility] 02-05-2013 influenza, injectabl e, quadrivalent, preservative free Genia Cohen [employer] Work Phone: [facility] 12-21-2011 meningococcal polysaccharide (groups A, C, Y and W-135) diphtheria toxoid conjugate vaccine (MCV4P) Genia Cohen [employer] Work Phone: [facility] 08-10-2008 hepatitis A vaccine, adult dosage Genia Cohen [employer] Work Phone: [facility] 08-10-2008 human papilloma viru s vaccine, quadrivalent Genia Cohen [employer] Work Phone: [facility] 08-10-2008 hepatitis A and hepatitis B vaccine Wellst Xr1 [facility] Work Phone: 05-08-2008 human papilloma viru s vaccine, quadrivalent Genia Cohen [employer] Work Phone: [facility] 02-27-2008 hepatitis A vaccine, adult dosage Genia Cohen [employer] Work Phone: [facility] 02-27-2008 human papilloma viru s vaccine, quadrivalent Genia Cohen [employer] Work Phone: [facility] 02-27-2008 tetanus toxoid, redu radu diphtheria toxoid, and acellular pertussis vaccine, adsorbed Genia Cohen [employer] Work Phone: [facility] 02-27-2008 varicella virus vaccine Step lissette Cohen [facility] Work Phone: [facility] 01-23-2000 diphtheria, tetanus toxoids and acellular pertussis vaccine Genia Cohen [facility] Work Phone: [facility] 01-23-2000 measles, mumps and rubella virus vaccine Genia Cohen [facility] Work Phone: [facility] 01-23-2000 poliovirus vaccine, inactivated Genia Cohen [facility] Work Phone: [facility] 09-22-1998 varicella virus vaccine Shoaib Cohen [facility] Work Phone: [facility] 12-30-1997 diphtheria, tetanus toxoids and acellular pertussis vaccine, unspecified formulation Genia Cohen [facility] Work Phone: [facility] 12-30-1997 haemophilus influenz ae type b vaccine, conjugate unspecified formulation Genia Cohen [employer] Work Phone: [facility] 01-07-1997 diphtheria, tetanus toxoids and acellular pertussis vaccine Genia Cohen [facility] Work Phone: [facility] 01-07-1997 haemophilus influenz ae type b vaccine, PRP-T conjugate Genia Cohen [facility] Work Phone: [facility] 10-27-1995 hepatitis B vaccine, adult dosage Genia Cohen [employer] Work Phone: [facility] 10-04-1995 measles, mumps and rubella virus vaccine Genia Cohen [employer] Work Phone: [facility] 07-03-1995 diphtheria, tetanus toxoids and acellular pertussis vaccine Genia Cohen [employer] Work Phone: [facility] 07-03-1995 haemophilus influenz ae type b vaccine, PRP-T conjugate Genia Cohen [employer] Work Phone: [facility] 07-03-1995 hepatitis B vaccine, adult dosage Genia Cohen [employer] Work Phone: [facility] 07-03-1995 poliovirus vaccine, inactivated Genia Cohen [employer] Work Phone: [facility] 05-03-1995 DTP-Haemophilus influenzae type b conjugate vaccine Genia Cohen [employer] Work Phone: [facility] 05-03-1995 poliovirus vaccine, inactivated Genia Cohen [employer] Work Phone: [facility] 02-06-1995 DTP-Haemophilus influenzae type b conjugate vaccine Genia Cohen [employer] Work Phone: [facility] 02-06-1995 hepatitis B vaccine, adult dosage Genia Cohen [employer] Work Phone: [facility] 02-06-1995 poliovirus vaccine, inactivated Genia Cohen [employer] Work Phone: [facility] 1994 hepatitis B vaccine, pediatric or pediatric/adolescent dosage Genia Cohen [employer] Work Phone: [facility] Payers Date Payer Category Payer Self-pay 2022 Managed Care HMO (unspecified) [facility] HMO/CHOICE PLUS/HARI/HARI PLUS [id number] 2022 Unknown [facility] HMO/[place] CE PLUS/HARI/HARI PLUS [id number] 2022-Present [phone] [address] [place] [address] [id number] 2022 Unknown [id number] 2017 Private Health Insurance [id number] 2017 Private Health Insurance [id number] 2017 Private Health Insurance [employer]ET[employer] A ETNA CHOICE POS/POSII/PREMIER CARE/PREMIER CARE PLUS [id number] 2017-Present [phone] [address] [place] [address] [id number] 2014 Medicaid [id number] 1994 Unknown [id number] 1994 Unknown [id number] 1994 Unknown [id number] 1994 Unknown [id number] Unknown [id number] Unknown [id number] Social History Date Type Detail Facility Start: 01-25-2017 End: 08-04-2021 Tobacco smoking status NHIS Never smoker [facility] Work Phone: Start: 1995 Sex Assigned At Not on file [facility] Work Phone: Start: 09-29-2020 End: 08-04-2021 Tobacco use and exposure Never used [facility] Start: 09-29-2020 End: 11-13-2024 Alcohol intake Current drinker of alcohol (finding) [facility] Start: 09-29-2020 History SDOH Social Connections Get Together 4 [facility] Start: 09-29-2020 History SDOH Food Worry 1 [facility] Start: 09-29-2020 History SDOH Transport Med 2 [facility] Start: 01-25-2017 Alcohol Comment occasional [facility] Start: 07-25-2021 End: 08-15-2021 Exposure to SARS-CoV-2 (event) Not sure [facility] Start: 09-29-2020 End: 08-04-2021 Alcohol intake [facility] Start: 09-29-2020 End: 11-13-2024 Social connection and isolation panel [facility] Frequency of Communication with Friends and Family Not on file [facility] How hard is it for y ou to pay for the very basics like food, housing, medical care, and heating Not very hard [facility] (I/We) worried whealexx er (my/our) food would run out before (I/we) got money to buy more. 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 documented in this encounter [facility] 10-14-2024 Telephone encount er Note Laura [...] has not been seen in past year. [facility] 08-16-2023 History of Presen t illness Narrative Video Visit [facility] [address] [facility] [address] Video Visit [facility] 08/16/2023 Genia Cohen CNP Provider Location: [place] Patient Location Side Panel Padder: None Patient Location: Patient's Home Patient: Laura [...] there are inherent diagnostic limitations compared to uwoj-es-opat evaluations. We elected to proceed with the [...] sooner as needed. documented in this encounter [facility] 08-07-2023 Note Addended by: VANNESSA COOK on: 08/07/2023 09:09 AM Modules accepted: Orders [facility] 08-07-2023 Miscellaneous Notes Addended by: VANNESSA WILEY on: 08/07/2023 09:09 AM Modules accepted: Orders Per [employer] message 08/06/23 Hello! I moved recently to a new [facility] and requested a refill at a new pharmacy that was approved. I realized after that the pharmacy isn t open or the number is disconnected. I put in a new request at a different pharmacy ([facility]) but was denied documented in this encounter [facility] 08-06-2023 Telephone encount er Note Per [employer] message 08/06/23 Hello! I moved recently to a new [facility] and requested a refill at a new pharmacy that was approved. I realized after that the pharmacy isn t open or the number is disconnected. I put in a new request at a different pharmacy ([facility]) but was denied [facility] 08-06-2023 Miscellaneous Notes Formattin g of this note is different from the original. Per [employer] message 08/06/23 Hello! I moved recently to a new town and requested a refill at a new pharmacy that was approved. I realized after that the pharmacy isn t open or the number is disconnected. I put in a new request at a different pharmacy ([facility]) but was denied documented in this encounter [facility] 03-15-2023 History of Presen t illness Narrative Video Visit [facility] [address] [facility] [address] Video Visit [facility] 03/15/2023 Genia Cohen CNP Provider Location: [place] Patient Location Side Panel Padder: None Patient Location: Patient's Home Patient: Laura [...] there are inherent diagnostic limitations compared to hsnd-jx-iade evaluations. We elected to proceed with the [...] for Medication management. documented in this encounter [facility] 02-12-2023 Instructions Genia Cohen CNP - 02/12/2023 8:32 AM EDT [facility] [address], [place] [address] The following attachments cannot be sent through Care Everywhere.Flu Vaccine (Inactivated or Recombinant): VIS (Italian)documented in this encounter [facility] 02-12-2023 History of Presen t illness [...] 01/07/1997 INFLUENZA IIV4 6MO OR > FLUARIX/FLUZONE/AFLURIA [id number] 01/23/2019, 02/09/2020, 02/12/2023 INFLUENZA QUAD 4YO OR >FLUCELVAX [id number] 02/07/2018 IPV 02/06/1995, 05/03/1995, 07/03/1995, 01/23/2000 Influenza, [...] Take Morning of Surgery Comment(s) flu vacc [id number] 6mos up,PF, (FLUZONE QUAD/FLULAVAL QUAD/FLUARIX QUAD) 60 mcg (15 mcg x 4)/0.5 mL Syrg syringe Sign this order in conjunction with the immunization order to satisfy [place] [employer] Positive ID requirements for [...] management, Video Visit. documented in this encounter [facility] 10-28-2021 History of Presen t illness Narrative Images from the original note were not included. Video Visit [facility] On license of [facility] [address] Video Visit [facility] 10/28/2021 Genia Cohen CNP Provider Location: [place] Patient Location Side Panel Padder: None Patient Location: Patient's Home Patient: Laura Wiley Date of : 1995 (26 y.o. female) PCP: Genia Cohen CNP Video [...] there are inherent diagnostic limitations compared to [id number]-mw-[id number] evaluations. We elected to proceed with the [...] fail to improve. documented in this encounter [facility] 08-04-2021 History of Presen t illness [...] These medications were sent to [facility]/pharmacy #[id number] - [facility] [address] [facility] [address], [facility] [address] escitalopram oxalate 20 MG tablet Review of [...] fail to improve. documented in this encounter [facility] 01-19-2021 History of Presen t illness [...] in the meantime. documented in this encounter [facility] 10-20-2020 History of Presen t illness Narrative [facility] assisting [facility] reached out to Berkley regarding [facility] referral and to follow up on her progress in connecting with resources previouslu provided by Isabela Landis. No answer, left message requesting call back. Follow up scheduled for 2-3 week(s). documented in this encounter [facility] 09-29-2020 History of Presen t illness [...] to provider at employer's office prior to [employer]. Was on Lexapro in the past with [...] Instructions Prior to Surgery NICOLE: Printed on:09/29/20 2806 Medication Information Take last dose on Take [...] with Reflex Free T4 Ambulatory Ref to [facility] Tank Worker POC Urinalysis Dipstick POC , Urine Diagnoses and all orders for this visit: Anxiety - escitalopram oxalate (LEXAPRO) 10 MG tablet; Take 1 (one) tablet (10 mg total) by mouth daily . - Ambulatory Ref to [facility] Tank Worker; Future - B12/Folate; Future - Vitamin D, [...] the assessment, diagnosis and plan with the COMPUTER PROGRAMMER student. Pt states ok to have COMPUTER PROGRAMMER student present. documented in this encounter [facility] Evaluation note Diagnosis Anxiety- Primary Anxiety [...] Abdominal pain, generalized documented in this encounter [facility] Work Phone: Evaluation note* Diagnosis Anxiety Anxiety state, unspecified [facility] Routine general medical examination at a health care facility- Primary Anxiety Anxiety state, unspecified Fatigue, unspecified type Menorrhagia with regular cycle Vitamin D deficiency Screening for diabetes mellitus [facility] Instruction Text No instruction information i s available. [facility] Instructions * Patient Instructions [...] Log into your personal health record on [email or web address] and enter K848 in the Education box to learn more about Urinary Tract Infection in Women: Care Instructions. Current as of: March 27, 2016 Content Version: 11.2 6670-9627 [email or web address]. Care instructions adapted under license by your healthcare professional. If you have questions about a medical condition or this instruction, always ask your healthcare professional. [email or web address] disclaims any warranty or liability for your [...] FoundDocuments on File Type Date Recorded Patient Decision Support Manager Expl anation Advance Directives and Livin g Will 03/11/2018 7:35 PM Documents on File Type Date Recorded Patient Decision Support Manager Expl anation Advance Directives and Livin g Will 03/11/2018 7:35 PM Documents on File Type Date Recorded Patient Decision Support Manager Expl anation Advance Directives and Livin g Will 01/19/2021 7:35 PM Documents on File Type Date Recorded Patient Decision Support Manager Expl anation Advance Directives and Livin g Will 01/19/2021 7:35 PM Documents on File Type Date Recorded Patient Decision Support Manager Expl anation Advance Directives and Livin g Will 08/15/2021 5:51 PM Reason for Referral Status Reason Specialty Diagnoses / Procedures Referred By Contact Referred To Contact Authorized Behavorist (Outpatient Social Work) Diagnoses Anxiety Genia Cohen, ROSARIO [address] [facility] [address] [place] [phone] Specialty Diagnoses / Procedures Referred By Contac t Referred To Contact Orthopedic Surgery Diagnoses Acute pain of right knee Genia Cohen, ROSARIO [address] [facility] [address] [phone] One, Orthopedic Referral ID Status Reason Start Date Expiration Date V isits Requested Visits Authorized [id number] Authorized 08/04/2021 08/04/2022 1 1 Specialty Diagnoses / Procedures Referred By Contac t Referred To Contact Radiology Diagnoses Acute pain of right knee Procedures MR Knee Right Without Contrast Genia Cohen, ROSARIO [address] [phone] Referral ID Status Reason Start Date Expiration Date V isits Requested Visits Authorized [id number] New Request 08/04/2021 08/04/2022 1 1 Specialty Diagnoses / Procedures Referred By Contac t Referred To Contact Behavioral Health Diagnoses Anxiety Attention deficit Genia Cohen, ROSARIO [address] [facility] [address] [phone] Richard Cantu MD [address] [address] Referral ID Status Reason Start Date Expiration Date V isits Requested Visits Authorized [id number] Pending Review 10/28/2021 10/28/2022 1 1 Specialty Diagnoses / Procedures Referred By Contac t Referred To Contact Radiology Diagnoses Generalized abdominal pain Procedures Urgent Care Niraj Meléndez MD [address] [facility], [address] [place] [address] Referral ID Status Reason Start Date Expiration Date Visits Requested Visits Authorized [id number] Authorized Perform Procedure 01/01/2024 12/31/2024 1 1 Additional Source Comments INFORMATION SOURCE (unrecogn ized section and content) DATE CREATED AUTHOR 10/18/2017 [facility] [place] DATE CREATED AUTHOR AUTHOR'S ORGANIZ ATION 10/23/2017 [facility] DATE CREATED AUTHOR AUTHOR'S ORGANIZ ATION 05/01/2022 [facility] DATE CREATED AUTHOR AUTHOR'S ORGANIZ ATION 02/17/2023 [facility] DATE CREATED AUTHOR AUTHOR'S ORGANIZ ATION 01/03/2024 [facility] DATE CREATED AUTHOR AUTHOR'S ORGANIZ ATION 11/16/2024 [facility] DATE CREATED AUTHOR AUTHOR'S ORGANIZ ATION 11/16/2024 [facility] DATE CREATED AUTHOR AUTHOR'S ORGANIZ ATION 02/12/2025 [facility] Reason for Visit (unrecogniz ed section and [...] pain Procedures Urgent Care Niraj Meléndez MD [address] [place] [address], [address] [place] [address] Referral ID Status Reason Start Date Expiration Date Visits Requested Visits Authorized [id number] Authorized Perform Procedure 01/01/2024 12/31/2024 1 1 Reason Onset Date Comments Medication Refill 10/13/2024 Reason Comments Gap Closure (Health Maintenance) HIV Scr eening Never doneHepatitis C Screening Never doneTetanus: Every 10yrs due on 02/26/2018Depression Screening/Follow-Up (PHQ-2/9) due on 2COVID-19 Vaccine(2023- season) due on 12/30/2023Wellness Visit due on 02/13/2024 Annual Exam Care Teams (unrecognized sec tion and content) Drama Director Relationship Specialty Start Date End Date Genia Cohen, GLASS FITTER [address] [place] [address] PCP - General Nurse Practitioner 09/29/20 Drama Director Relationship Specialty Start Date End Date Genia Cohen, GLASS FITTER [address] [place] [address] PCP - General Nurse Practitioner 09/29/20 Joaquin Dick, DO [address] [place] [address] PCP - PRIYA Attributed Provider - [employer] 05/28/17 04/29/50 Drama Director Relationship Specialty Start Date End Date Genia Cohen, GLASS FITTER [address] [facility] [address] [place] [address] PCP - General Nurse Practitioner 09/29/20 Joaquin Dick, DO [address] [facility] [address] [place] [address] PCP - PRIYA Attributed Provider - [employer] 05/28/17 04/29/50 Drama Director Relationship Specialty Start Date End Date Genia Cohen, GLASS FITTER [address] [facility] [address] [place] [address] PCP - General Nurse Practitioner 09/29/20 Richard Barone, DO [address] [place] [address] PCP - PRIYA Attributed Provider - [employer] 05/28/17 04/29/50 Drama Director Relationship Specialty Start Date End Date Genia CohenROSARIO [address] [place] [address] PCP - General Nurse Practitioner 09/29/20 Drama Director Relationship Specialty Start Date End Date Genia CohenROSARIO [address] [place] [address] PCP - General Nurse Practitioner 09/29/20 Drama Director Relationship Specialty Start Date End Date Genia CohenROSARIO [address] [place] [address] PCP - General Nurse Practitioner 09/29/20 CohenGenia CNP [address] [place] [address] PCP - PRIYA Attributed Provider - [facility] 09/28/22 04/29/50 Drama Director Relationship Specialty Start Date End Date Genia CohenROSARIO [address] [place] [address] PCP - General Nurse Practitioner 09/29/20 Cohen Genia ROSARIO Iverson [address] [place] [address] PCP - PRIYA Attributed Provider - [facility] 09/28/22 04/29/50 Drama Director Relationship Specialty Start Date End Date Genia CohenROSARIO [address] [place] [address] PCP - General Nurse Practitioner 09/29/20 Genia Cohen GLASS FITTER [address] [facility] [address] [place] [address] PCP - PRIYA Attributed Provider - [facility] 09/28/22 04/29/50 Drama Director Relationship Specialty Start Date End Date Genia Cohen CNP [address] [facility] [address] [place] [address] PCP - General Nurse Practitioner 09/29/20 Genia CohenROSARIO [address] [facility] [address] [place] [address] PCP - PRIYA Attributed Provider - [facility] 09/28/22 04/29/50 Drama Director Relationship Specialty Start Date End Date Genia CohenROSARIO [address] [facility] [address] [place] [address] PCP - General Nurse Practitioner 09/29/20 Drama Director Relationship Specialty Start Date End Date Genia Cohen GLASS FITTER [address] [facility] [address] [place] [address] PCP - General Nurse Practitioner 09/29/20 Drama Director Relationship Specialty Start Date End Date Genia Cohne ROSARIO [address] [place] [address] PCP - General Nurse Practitioner 09/29/20 FOR [...] BE BASED ON THE PRIMARY CLINICAL RECORDS. [facility]. provides no warranty or guarantee of the accuracy or completeness of information in this document.
== END | disposition home or self-care (01) ==
LOC: US 17:58
PROVIDERS: Referring Provider Nurse Practitioner Family; Visit Provider Nurse Practitioner Family
DX: N97.9 Female infertility, unspecified (principal)
CPT/HCPCS: 76830; 76856

== ENCOUNTER → 2025-02-26 | Outpatient (CLI) | payer OTHER, SELFPAY ==
[2025-02-26 13:03] LABS: Hematocrit 41.0 % (37-47); Hemoglobin 14.0 g/dL (12.0-15.0); Immature Granulocytes Count 0.020 X10^3/uL (0.0-0.0); Mean Corp Hgb Conc 34.1 g/dL (32-36); Mean Corpuscular Volume 85.6 fL (81-99); Mean Platelet Vol. 9.4 fl (6.2-12.0); NRBC Flagged by Analyzer 0 % (0-5); Platelet Count 316 K/mm3 (150-450); RBC Distribution Width CV 12.3 % (11.6-14.6); RBC Distribution Width SD 38.5 fl (35.1-43.9); Red Blood Count 4.79 M/mm3 (4.2-5.4); White Blood Count 8.3 K/mm3 (4.4-11.0)
[2025-02-26 13:55] LABS: AST(SGOT) 20 U/L (<=31); Alanine Aminotransfer ALT/SGPT 22 U/L (<=34); Albumin, Serum 4.2 g/dL (3.5-5.0); Alkaline Phosphatase 98 U/L (35-104); Anion Gap 11 (5-15); BUN 11 mg/dL (4-19); BUN/Creat Ratio 16.4 RATIO (10-20); Calcium,Total 9.0 mg/dL (7.6-11.0); Carbon Dioxide 22.2 mmol/L (21.0-32.0); Chloride 105 mmol/L (98-108); Cholesterol 147 mg/dL (<=200); Globulin 3.4 g/dL (2.2-4.2); Glucose 93 mg/dL (70-99); Low Density Lipoprotein Calc. 92 mg/dL; Potassium 4.3 mmol/L (3.3-5.1); Triglycerides 96 mg/dL; Very Low Density Lipoprotein 19 mg/dL (5-40); cholesterol:hdl ratio screen 3.97
[2025-02-27 04:07] LABS: PROGESTERONE 0.1 ng/mL (.)
[2025-03-04 00:07] LABS: PROLACTIN 7.5 ng/mL (4.8-33.4)
== END | disposition home or self-care (01) ==
LOC: LAB 12:13
PROVIDERS: Referring Provider Nurse Practitioner Family; Visit Provider Nurse Practitioner Family
DX: Z31.89 Encounter for other procreative management (principal)
CPT/HCPCS: 36415; 80053; 80061; 82627; 82670; 83036; 84144; 84146; 84402; 84439; 84443; 85025; 82626

== ENCOUNTER → 2025-03-17 | Outpatient (CLI) | payer OTHER, SELFPAY ==
[2025-03-18 04:07] LABS: PROGESTERONE 0.8 ng/mL (.)
== END | disposition home or self-care (01) ==
LOC: LAB 11:48
PROVIDERS: Referring Provider Nurse Practitioner Family; Visit Provider Nurse Practitioner Family
DX: Z31.89 Encounter for other procreative management (principal); N97.0 Female infertility associated with anovulation
CPT/HCPCS: 36415; 84144

== ENCOUNTER → 2025-04-15 | Outpatient (CLI) | payer OTHER, SELFPAY ==
--- NOTE | 2025-04-15 09:01 | US_ITS ---
PROCEDURE: PELVIC W/ TRANSVAGINAL REASON FOR EXAM: COMPLEX OVARIAN CYST TECHNIQUE: Procedure Code: [id number] Modality: US Procedure: PELVIC W/ TRANSVAGINAL COMPARISON: February 17, 2025. FINDINGS: Measurements: Uterus: 7.4 cm x 5.9 cm x 3.8 cm with a volume of 87.7 mL Endometrial Thickness: 8 mm. It is hyperechoic. Right Ovary: 3.5 cm x 2.6 cm x 2.3 cm with a volume of 10.9 mL. Left Ovary: 4.7 cm x 3.7 cm x 3.6 cm with a volume of 32.1 mL. TRANSABDOMINAL: Uterus: Normal size, myometrial echotexture, and contour. Endometrium: Unremarkable. Right ovary: Multiple tiny follicles are seen in the periphery of the right ovary. Left ovary: Multiple tiny follicles are seen in the periphery of the left ovary. Persistent 2 cm 1.6 cm 1.4 cm cyst in the left ovary. Other: No large pelvic mass identified. Transvaginal sonography was performed to better visualize the endometrium. TRANSVAGINAL: Uterus: Retroverted. Normal contour and myometrial echotexture. Endometrium: Normal echotexture. Right ovary: Multiple peripheral follicles. Left ovary: Multiple peripheral follicles. Residual 2 cm 1.6 cm 1.4 cm simple cyst in the left ovary. Other adnexal findings: None. Cul-de-sac: No free intraperitoneal fluid identified. Tenderness: No tenderness US/Pelvic w/ Transvaginal IMPRESSION: Findings suggestive of polycystic ovaries. Residual 2 cm x 1.6 cm 1.4 cm simple cyst in the left ovary. Reading Location: [id number]
== END | disposition home or self-care (01) ==
PROVIDERS: Referring Provider Nurse Practitioner Women's Health; Visit Provider Nurse Practitioner Women's Health
DX: N83.292 Other ovarian cyst, left side (principal)
CPT/HCPCS: 76830; 76856